=== PATIENT | male | born 1975 | race Caucasian/White ===

== ENCOUNTER 2016-08-13 23:23 | Emergency (ER) | payer SELFPAY ==
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
[2016-08-14 01:12] VITALS: BP 134/79
--- NOTE | 2016-08-14 09:54 | CR ---
Right foot: Four views of the right foot were obtained. Comparison: No previous study. Joint spaces are preserved. No fracture, dislocation or other bony abnormality is seen. Impression: 1. No abnormality is appreciated on right foot study. Diagnostic code #1
== END 2016-08-14 01:20 | disposition home or self-care (01) ==
LOC: JD.ED 23:23
DX: S90.31XA Contusion of right foot, initial encounter (principal); F17.210 Nicotine dependence, cigarettes, uncomplicated; Z88.1 Allergy status to other antibiotic agents; Z88.0 Allergy status to penicillin; Z90.49 Acquired absence of other specified parts of digestive tract; X58.XXXA Exposure to other specified factors, initial encounter
CPT/HCPCS: 73630-26-RT; 73630-RT; 99283; 99284

== ENCOUNTER 2016-08-18 10:10 | Emergency (ER) | payer SELFPAY ==
[2016-08-18 10:21] VITALS: BP 121/79
[2016-08-18] MEDS ORDERED: Acetaminophen/oxyCODONE 325-5 MG Tab PO ONE (10:31)
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
--- NOTE | 2016-08-20 11:00 | CR ---
Right foot: 4 views of the right foot were obtained. Comparison: Previous right foot exam of 08/14/16. Joint spaces are maintained. No fracture, dislocation or other bony abnormality is seen. Impression: 1. No abnormality is identified on right foot study. No significant change is seen from prior exam. Diagnostic code #1
== END 2016-08-18 11:05 | disposition home or self-care (01) ==
LOC: JD.ED 10:10
DX: S97.81XA Crushing injury of right foot, initial encounter (principal); S90.31XA Contusion of right foot, initial encounter; F17.210 Nicotine dependence, cigarettes, uncomplicated; Z90.49 Acquired absence of other specified parts of digestive tract; Z98.890 Other specified postprocedural states; Z88.0 Allergy status to penicillin; Z88.1 Allergy status to other antibiotic agents; V59.88XA Occupant (driver) (passenger) of pick-up truck or van injured in other specified transport accidents, initial encounter; Y92.410 Unspecified street and highway as the place of occurrence of the external cause
CPT/HCPCS: 73630; 99284; A9270; 99283

== ENCOUNTER 2016-08-20 21:13 | Emergency (ER) | payer SELFPAY ==
[2016-08-20 21:28] VITALS: BP 131/78
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
== END 2016-08-20 22:30 | disposition left against medical advice (07) ==
LOC: JD.ED 21:13
DX: S90.31XA Contusion of right foot, initial encounter (principal); Z90.49 Acquired absence of other specified parts of digestive tract; Z98.890 Other specified postprocedural states; Z88.0 Allergy status to penicillin; Z88.1 Allergy status to other antibiotic agents; V09.9XXA Pedestrian injured in unspecified transport accident, initial encounter
CPT/HCPCS: 99282; 99283

== ENCOUNTER 2016-09-06 00:39 | Emergency (ER) | payer SELFPAY ==
[2016-09-06 00:50] VITALS: BP 110/71
--- NOTE | 2016-09-06 01:26 | EDM.PDOC ---
ED HPI GENERAL MEDICAL PROBLEM - General Chief Complaint: Flank Pain Stated Complaint: POSS KIDNEY STONE Time Seen by Provider: 09/06/16 01:17 - History of Present Illness INITIAL COMMENTS - FREE TEXT/NARRATIVE: 40-year-old male presents emergency room with abdominal and back pain. This pain is been going on for the last several hours started around 10:00 this evening. It reminds him an awful lot of kidney stones he's had multiple kidney stones on the right side in the past his pain now is on the left side he has no right-sided pain this pain starts in the upper flank radiates around into his left hip and groin. He's had some nausea no vomiting no diarrhea no constipation he denies any fevers or chills. Past medical history significant for multiple kidney stones on the right no history of heart or lung problems no diabetes Left Flank Pain Score (Numeric/FACES): 8 - Related Data Allergies Allergy/AdvReac Type Severity Reaction Status Date / Time azithromycin [From Zithromax] Allergy Airway Verified 09/06/16 00:50 Tightness cephalexin [From Keflex] Allergy Airway Verified 09/06/16 00:50 Tightness Penicillins Allergy Anaphylactic Verified 09/06/16 00:50 Shock Past Medical History - Past Health History Medical/Surgical History: Denies Medical/Surgical History Genitourinary History: Reports: Renal Calculus Musculoskeletal History: Reports: Back Pain, Chronic Other Musculoskeletal History: pain to right foot - Infectious Disease History Infectious Disease History: Reports: Chicken Pox - Past Surgical History GI Surgical History: Reports: Appendectomy Male Surgical History: Reports: Other (See Below) Other Male Surgeries/Procedures: stent to right kidney Neurological Surgical History: Reports: Lumbar Spine Musculoskeletal Surgical History: Reports: Other (See Below) Other Musculoskeletal Surgeries/Procedures:: back surgery Social & Family History - Family History Family Medical History: Noncontributory - Tobacco Use Smoking Status *Q: Current Every Day Smoker Years of Tobacco use: 25 Packs/Tins Daily: 1.5 - Caffeine Use Caffeine Use: Reports: Coffee - Recreational Drug Use Recreational Drug Use: No - Living Situation & Occupation Living situation: Reports: , with Significant Other (Fiance), with Family (3 kids) Occupation: Employed ([employer]) ED ROS GENERAL - Review of Systems Review Of Systems: See Below Constitutional: Reports: No Symptoms. Denies: Fever, Chills HEENT: Reports: No Symptoms Respiratory: Reports: No Symptoms Cardiovascular: Reports: No Symptoms GI/Abdominal: Reports: Abdominal Pain, Nausea. Denies: Constipation, Diarrhea, Vomiting : Reports: Flank Pain. Denies: Dysuria, Frequency, Hematuria Neurological: Reports: No Symptoms ED EXAM, GI/ABD - Physical Exam Exam: See Below Exam Limited By: No Limitations General Appearance: Alert, Mild Distress (From the pain) Head: Atraumatic, Normocephalic Neck: Normal Inspection, Supple, Non-Tender, Full Range of Motion Respiratory/Chest: No Respiratory Distress, Lungs Clear, Normal Breath Sounds Cardiovascular: Regular Rate, Rhythm, No Edema, No Murmur GI/Abdominal Exam: Normal Bowel Sounds, Soft, Other (He has left-sided tenderness somewhat vague this is not worsened with palpation no rebound or guarding noted no distention). No: Non-Tender Back Exam: Normal Inspection. No: CVA Tenderness (L), CVA Tenderness (R) Course - Vital Signs Last Recorded V/S: Last Vital Signs Temp 36.2 C 09/06/16 00:46 Pulse 70 09/06/16 00:46 Resp 18 09/06/16 00:46 BP 110/71 09/06/16 00:46 Pulse Ox 99 09/06/16 00:46 - Orders/Labs/Meds Orders: Active Orders 24 hr Category Date Time Status Abdomen Pelvis wo Cont [CT] Stat Exams 09/06/16 01:27 Taken Lactated Ringers [Ringers, Lactated] 1,000 ml Med 09/06/16 01:30 Active IV ASDIRECTED Medication Orders Lactated Ringer's (Ringers, Lactated) 1,000 mls @ 150 mls/hr IV ASDIRECTED JULISA Last Admin: 09/06/16 01:41 Dose: 150 mls/hr Labs: Laboratory Tests 09/06/16 09/06/16 09/06/16 Range/Units 01:33 01:33 02:55 WBC 7.84 (4.23-9.07) K/mm3 RBC 5.40 (4.63-6.08) M/mm3 Hgb 16.4 (13.7-17.5) gm/L Hct 46.9 (40.1-51.0) % MCV 86.9 (79.0-92.2) fl MCH 30.4 (25.7-32.2) pg MCHC 35.0 (32.2-35.5) g/dl RDW Std Deviation 45.5 H (35.1-43.9) fL Plt Count 215 (163-337) K/mm3 MPV 9.2 L (9.4-12.3) fl Neutrophils % (Manual) 75 H (40-60) % Band Neutrophils % 0 (0-10) % Lymphocytes % (Manual) 22 (20-40) % Atypical Lymphs % 0 % Monocytes % (Manual) 3 (2-10) % Eosinophils % (Manual) 0 L (0.8-7.0) % Basophils % (Manual) 0 L (0.2-1.2) Platelet Estimate Adequate Plt Morphology Comment Normal RBC Morph Comment Normal Sodium 141 (136-145) mEq/L Potassium 3.5 (3.5-5.1) mEq/L Chloride 105 (98-107) mEq/L Carbon Dioxide 28 (21-32) mEq/L Anion Gap 11.5 (5-15) BUN 10 (7-18) mg/dL Creatinine 1.0 (0.7-1.3) mg/dL Est Cr Clr Drug Dosing TNP Estimated GFR (MDRD) > 60 (>60) mL/min BUN/Creatinine Ratio 10.0 L (14-18) Glucose 91 (74-106) mg/dL Calcium 9.0 (8.5-10.1) mg/dL Total Bilirubin 0.4 (0.2-1.0) mg/dL AST 17 (15-37) U/L ALT 24 (16-63) U/L Alkaline Phosphatase 100 (46-116) U/L Total Protein 6.8 (6.4-8.2) g/dl Albumin 3.9 (3.4-5.0) g/dl Globulin 2.9 gm/dL Albumin/Globulin Ratio 1.3 (1-2) Urine Color [place] H (Yellow) Urine Appearance Clear (Clear) Urine pH 6.5 (5.0-8.0) Ur Specific [place] > or = 1.030 (1.005-1.030) Urine Protein 1+ H (Negative) Urine Glucose (UA) Negative (Negative) Urine Ketones 2+ H (Negative) Urine Occult Blood Negative (Negative) Urine Nitrite Negative (Negative) Urine Bilirubin 1+ H (Negative) Urine Urobilinogen 1.0 (0.2-1.0) Ur Leukocyte Esterase Negative (Negative) Urine RBC 0-5 (0-5) /hpf Urine WBC 0-5 (0-5) /hpf Ur Epithelial Cells 0-5 (0-5) /hpf Urine Bacteria Few (FEW) /hpf Urine Mucus Many H (FEW) /hpf Meds: Medications Generic Name Dose Route Start Last Admin Trade Name Freq PRN Reason Stop Dose Admin Lactated Ringer's 1,000 mls @ 150 mls/hr 09/06/16 01:30 09/06/16 01:41 Ringers, Lactated IV 150 mls/hr ASDIRECTED JULISA Administration Discontinued Medications Generic Name Dose Route Start Last Admin Trade Name Freq PRN Reason Stop Dose Admin Fentanyl 50 mcg 09/06/16 02:07 09/06/16 02:11 Sublimaze IVPUSH 09/06/16 02:08 50 mcg ONETIME ONE Administration Fentanyl 50 mcg 09/06/16 02:37 09/06/16 02:41 Sublimaze IVPUSH 09/06/16 02:38 50 mcg ONETIME ONE Administration Hydromorphone HCl 0.5 mg 09/06/16 01:28 09/06/16 01:43 Dilaudid IVPUSH 09/06/16 01:29 0.5 mg ONETIME ONE Administration Ondansetron HCl 4 mg 09/06/16 01:28 09/06/16 01:42 Zofran IVPUSH 09/06/16 01:29 4 mg ONETIME ONE Administration - Re-Assessments/Exams Free Text/Narrative Re-Assessment/Exam: 09/06/16 02:53 CT exam does not demonstrate a kidney stone or any other etiologies for his pain awaiting on a UA at this point 09/06/16 04:41 Urinalysis is unrevealing Patient will be discharged home he's use ibuprofen 800 mg 3 times a day with meals he is to push his fluid intake and will discharge him with [place] No. 10 one or 2 every 6 hours as needed for pain precautions explained to the patient Departure - Departure Time of Disposition: 04:41 Disposition: Home, Self-Care 01 Clinical Impression: Left flank pain - Discharge Information Forms: ED Department Discharge Additional Instructions: Return to the emergency room with any questions problems or worsening symptoms. Follow-up in the Hospital clinic at the end of this week for recheck [phone]. You been given hydrocodone from the machine in the waiting room one or 2 every 6 hours as needed for pain. Allow 12 hours after using this medication before driving or returning to work. Start the ibuprofen you have at home 800 mg no more than 3 times a day. Take with meals. Push fluids so you are voiding every hour and a half to 2 hours while awake. - My Orders Last 24 Hours: My Active Orders 09/06/16 01:27 Abdomen Pelvis wo Cont [CT] Stat 09/06/16 01:30 Lactated Ringers [Ringers, Lactated] 1,000 ml IV ASDIRECTED - Assessment/Plan Last 24 Hours: My Active Orders 09/06/16 01:27 Abdomen Pelvis wo Cont [CT] Stat 09/06/16 01:30 Lactated Ringers [Ringers, Lactated] 1,000 ml IV ASDIRECTED
[2016-09-06] MEDS ORDERED: Ondansetron 4 MG/2 ML SDV IVPUSH ONE (01:28)
[2016-09-06] MEDS ORDERED: HYDROmorphone 1 MG/ML Syringe IVPUSH ONE (01:28)
[2016-09-06] MEDS ORDERED: Lactated Ringers 1,000 ML IV SCH (01:30)
[2016-09-06] MEDS ORDERED: fentaNYL 100 MCG/2 ML SDV IVPUSH ONE ×2 (02:07→02:37)
[2016-09-06] MEDS ORDERED: Acetaminophen/HYDROcodone 325-5 MG Tab PO ONE (04:56)
--- NOTE | 2016-09-06 07:39 | CT ---
CT abdomen and pelvis Technique: Multiple axial sections were obtained from above the dome of the diaphragm inferiorly through the pubic symphysis. Intravenous and oral contrast not utilized. Study has been performed as a ureteral stone protocol. Comparison: No previous CT imaging. Findings: Left kidney shows a small 2 mm nonobstructing stone within the mid to lower pole. No other abnormal calcifications are present within the kidneys. Ureters show no dilatation. No abnormal calcifications are seen along the course of the ureters. No bladder calculi are seen. Visualized lung bases show nothing acute. Electro-stimulating device is seen within the posterior soft tissues terminating in the thoracic spine. Noncontrast appearance of the liver and spleen appears within normal limits. Gallbladder shows no calcified gallstones. Adrenal glands show no nodule. Pancreas appears within normal limits. Aorta shows no aneurysmal dilatation. No retroperitoneal adenopathy or mesenteric abnormalities are seen. No pelvic mass or adenopathy is identified. Bone window settings were reviewed which appear within normal limits for the patient's age. 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 Impression: 1. 2 mm nonobstructing stone within the mid to lower left kidney. No ureteral dilatation or ureteral stone is seen. 2. Other incidental findings as noted above. Nothing acute is appreciated on noncontrast CT study of the abdomen and pelvis. Diagnostic code #3 I agree with preliminary report issued by [facility] ([facility] preliminary report dictated on 09/06/16, 3:28 AM Central Time)
== END 2016-09-06 05:05 | disposition home or self-care (01) ==
LOC: JD.ED 00:39
DX: R10.9 Unspecified abdominal pain (principal); Z90.49 Acquired absence of other specified parts of digestive tract; Z98.890 Other specified postprocedural states; Z87.442 Personal history of urinary calculi; F17.210 Nicotine dependence, cigarettes, uncomplicated; Z88.0 Allergy status to penicillin; Z88.1 Allergy status to other antibiotic agents; Z96.0 Presence of urogenital implants
CPT/HCPCS: 36415; 74176; 80053; 81001; 85025; 96361; 96374; 96375; 96376; 99284; A9270; J1170; J2405; J3010; J7120

== ENCOUNTER 2016-09-09 21:52 | Emergency (ER) | payer SELFPAY ==
[2016-09-09 22:12] VITALS: BP 129/72
[2016-09-09] MEDS ORDERED: Ondansetron 4 MG/2 ML SDV IVPUSH ONE (22:21)
[2016-09-09] MEDS ORDERED: Sodium Chloride 0.9% 1,000 ML IV ONE ×2 (22:21→23:59)
[2016-09-09] MEDS ORDERED: Sodium Chloride 0.9% 10 ML Syringe FLUSH PRN (22:21)
[2016-09-09] MEDS ORDERED: Ketorolac 30 MG/ML SDV IVPUSH ONE (22:21)
[2016-09-09] MEDS ORDERED: Ketorolac 30 MG/ML SDV ONE (22:56)
[2016-09-09] MEDS ORDERED: Sodium Chloride 0.9% 1,000 ML ONE (22:56)
[2016-09-09] MEDS ORDERED: Ondansetron 4 MG/2 ML SDV ONE (22:56)
[2016-09-09] MEDS ORDERED: Acetaminophen/HYDROcodone 325-5 MG Tab ONE (23:25)
[2016-09-09] MEDS ORDERED: Acetaminophen/HYDROcodone 325-5 MG Tab PO ONE (23:30)
--- NOTE | 2016-09-09 23:58 | EDM.PDOC ---
ED HPI GENERAL MEDICAL PROBLEM - General Chief Complaint: Genitourinary Problem Stated Complaint: LEFT KIDNEY HURTS Time Seen by Provider: 09/09/16 21:59 Source of Information: Reports: Patient History Limitations: Reports: No Limitations - History of Present Illness INITIAL COMMENTS - FREE TEXT/NARRATIVE: 40 y/o M with hx prior kidney stones presents with L flank pain. Started a few days ago. Getting worse. Pain is located in lower back and wraps around to the front. Sharp, constant, waxes and wanes. Can't get comfortable. Was here 3 days ago, CT scan showed nephrolithiasis but no ureterolithiasis. Prescribed vicodin which he has taken. This doesn't help his pain much. No dysuria/ hematuria. Has also had nausea/vomiting. Multiple episodes of vomiting tonight, though nursing staff observed him consume water and a pop tart despite their informing him that he should be NPO until my eval. No fever. No cough/SOB. Left Flank Pain Score (Numeric/FACES): 9 - Related Data Allergies Allergy/AdvReac Type Severity Reaction Status Date / Time azithromycin [From Zithromax] Allergy Airway Verified 09/09/16 22:02 Tightness cephalexin [From Keflex] Allergy Airway Verified 09/09/16 22:02 Tightness Penicillins Allergy Anaphylactic Verified 09/09/16 22:02 Shock Home Meds: Home Meds Cyclobenzaprine [Flexeril] 10 mg PO TID PRN #15 tablet 09/10/16 [Rx] Hydrocodone/Acetaminophen [Hydrocodon-Acetaminophen 5-325] 1 each PO QID PRN # 12 tablet 09/10/16 [Rx] Ondansetron [Zofran ODT] 4 mg PO Q4H PRN #15 tab.dis 09/10/16 [Rx] Past Medical History - Past Health History Medical/Surgical History: Denies Medical/Surgical History Genitourinary History: Reports: Renal Calculus Musculoskeletal History: Reports: Back Pain, Chronic Other Musculoskeletal History: pain to right foot - Infectious Disease History Infectious Disease History: Reports: Chicken Pox - Past Surgical History GI Surgical History: Reports: Appendectomy Male Surgical History: Reports: Other (See Below) Other Male Surgeries/Procedures: stent to right kidney Neurological Surgical History: Reports: Lumbar Spine Musculoskeletal Surgical History: Reports: Other (See Below) Other Musculoskeletal Surgeries/Procedures:: back surgery Social & Family History - Family History Family Medical History: Noncontributory - Tobacco Use Smoking Status *Q: Current Every Day Smoker Years of Tobacco use: 25 Packs/Tins Daily: 1.5 - Caffeine Use Caffeine Use: Reports: Coffee - Recreational Drug Use Recreational Drug Use: No - Living Situation & Occupation Living situation: Reports: , with Significant Other (Fiance), with Family (3 kids) Occupation: Employed ([employer]) ED ROS GENERAL - Review of Systems Review Of Systems: See Below Constitutional: Denies: Fever HEENT: Reports: No Symptoms Respiratory: Denies: Shortness of Breath Cardiovascular: Denies: Chest Pain Endocrine: Reports: No Symptoms GI/Abdominal: Reports: Abdominal Pain : Reports: Flank Pain. Denies: Dysuria Musculoskeletal: Reports: Back Pain Skin: Reports: No Symptoms Neurological: Reports: No Symptoms ED EXAM, GI/ABD - Physical Exam Exam: See Below Exam Limited By: No Limitations General Appearance: Alert, Anxious, Mild Distress, Other (pacing the room, agitated) Eyes: Bilateral: Normal Appearance Ears: Normal External Exam Nose: Normal Inspection Throat/Mouth: Normal Inspection Head: Atraumatic, Normocephalic Neck: Normal Inspection, Supple, Non-Tender, Full Range of Motion Respiratory/Chest: No Respiratory Distress, Lungs Clear, Normal Breath Sounds, No Accessory Muscle Use Cardiovascular: Normal Peripheral Pulses, Regular Rate, Rhythm, No Murmur GI/Abdominal Exam: Soft, Non-Tender. No: Rebound Back Exam: CVA Tenderness (L), Paraspinal Tenderness (left lumbar). No: CVA Tenderness (R) Neurological: Alert, Oriented, Normal Cognition, No Motor/Sensory Deficits Psychiatric: Anxious, Other (agitated, intermittently uncooperative but generally redirectable ) Skin Exam: Warm, Dry, Intact, Normal Color, No Rash Course - Vital Signs Last Recorded V/S: Last Vital Signs Temp 36.9 C 09/09/16 22:03 Pulse 78 09/10/16 01:16 Resp 16 09/10/16 01:16 BP 129/72 09/09/16 22:03 Pulse Ox 91 L 09/10/16 01:16 - Orders/Labs/Meds Orders: Active Orders 24 hr Category Date Time Status Peripheral IV Care [RC] . DIRECTED Care 09/09/16 22:22 Active Peripheral IV Insertion Adult [OM.PC] Routine Oth 09/09/16 22:21 Ordered Labs: Laboratory Tests 09/09/16 09/09/16 09/09/16 Range/Units 23:00 23:00 23:00 WBC 8.67 (4.23-9.07) K/mm3 RBC 5.82 (4.63-6.08) M/mm3 Hgb 17.6 H (13.7-17.5) gm/L Hct 50.3 (40.1-51.0) % MCV 86.4 (79.0-92.2) fl MCH 30.2 (25.7-32.2) pg MCHC 35.0 (32.2-35.5) g/dl RDW Std Deviation 46.1 H (35.1-43.9) fL Plt Count 262 (163-337) K/mm3 MPV 9.4 (9.4-12.3) fl Neut % (Auto) 73.0 H (34.0-67.9) % Lymph % (Auto) 20.6 L (21.8-53.1) % [place] % (Auto) 5.8 (5.3-12.2) % Eos % (Auto) 0.2 L (0.8-7.0) Baso % (Auto) 0.2 (0.1-1.2) % Neut # (Auto) 6.32 H (1.78-5.38) K/mm3 Lymph # (Auto) 1.79 (1.32-3.57) K/mm3 [place] # (Auto) 0.50 (0.30-0.82) K/mm3 Eos # (Auto) 0.02 L (0.04-0.54) K/mm3 Baso # (Auto) 0.02 (0.01-0.08) K/mm3 Sodium 141 (136-145) mEq/L Potassium 3.8 (3.5-5.1) mEq/L Chloride 101 (98-107) mEq/L Carbon Dioxide 25 (21-32) mEq/L Anion Gap 18.8 H (5-15) BUN 14 (7-18) mg/dL Creatinine 0.8 (0.7-1.3) mg/dL Est Cr Clr Drug Dosing TNP Estimated GFR (MDRD) > 60 (>60) mL/min BUN/Creatinine Ratio 17.5 (14-18) Glucose 259 H (74-106) mg/dL Calcium 8.6 (8.5-10.1) mg/dL Total Bilirubin 0.2 (0.2-1.0) mg/dL AST 27 (15-37) U/L ALT 29 (16-63) U/L Alkaline Phosphatase 118 H (46-116) U/L Total Protein 7.4 (6.4-8.2) g/dl Albumin 4.0 (3.4-5.0) g/dl Globulin 3.4 gm/dL Albumin/Globulin Ratio 1.2 (1-2) Lipase 124 (73-393) U/L Ethyl Alcohol 0.10 (0.00) gm% Meds: Medications Discontinued Medications Generic Name Dose Route Start Last Admin Trade Name Freq PRN Reason Stop Dose Admin Hydrocodone Bitart/Acetaminophen Confirm 09/09/16 23:25 09/09/16 23:32 Casa 325-5 Mg Administered 09/09/16 23:26 Not Given Dose 1 tab .ROUTE .STK-MED ONE Hydrocodone Bitart/Acetaminophen 1 tab 09/09/16 23:30 09/09/16 23:33 Casa 325-5 Mg PO 09/09/16 23:31 1 tab ONETIME ONE Administration Hydromorphone HCl 1 mg 09/10/16 00:46 09/10/16 00:51 Dilaudid IVPUSH 09/10/16 00:47 1 mg ONETIME ONE Administration Sodium Chloride Confirm 09/09/16 22:56 09/09/16 23:27 Normal Saline Administered 09/09/16 22:57 Not Given Dose 1,000 mls @ as directed .ROUTE .STK-MED ONE Sodium Chloride 1,000 mls @ 1,000 mls/hr 09/09/16 22:21 09/09/16 23:25 Normal Saline IV 09/09/16 23:20 1,000 mls/hr ONETIME ONE Administration Sodium Chloride 1,000 mls @ 1,000 mls/hr 09/09/16 23:59 09/10/16 00:07 Normal Saline IV 09/10/16 00:58 1,000 mls/hr ONETIME ONE Administration Ketorolac Tromethamine Confirm 09/09/16 22:56 09/09/16 23:27 Toradol Administered 09/09/16 22:57 Not Given Dose 30 mg .ROUTE .STK-MED ONE Ketorolac Tromethamine 30 mg 09/09/16 22:21 09/09/16 23:06 Toradol IVPUSH 09/09/16 22:22 30 mg ONETIME ONE Administration Lorazepam 1 mg 09/10/16 00:25 09/10/16 00:33 Ativan IVPUSH 09/10/16 00:26 1 mg ONETIME ONE Administration Morphine Sulfate 4 mg 09/09/16 23:59 09/10/16 00:08 Morphine IVPUSH 4 mg Q2H PRN Administration Pain Ondansetron HCl Confirm 09/09/16 22:56 09/09/16 23:27 Zofran Administered 09/09/16 22:57 Not Given Dose 4 mg .ROUTE .STK-MED ONE Ondansetron HCl 4 mg 09/09/16 22:21 09/09/16 23:06 Zofran IVPUSH 09/09/16 22:22 4 mg ONETIME ONE Administration Ondansetron HCl 4 mg 09/10/16 00:25 09/10/16 00:32 Zofran IVPUSH 09/10/16 00:26 4 mg ONETIME ONE Administration Sodium Chloride 10 ml 09/09/16 22:21 09/10/16 00:10 Saline Flush FLUSH 10 ml ASDIRECTED PRN Administration Keep Vein Open - Re-Assessments/Exams Free Text/Narrative Re-Assessment/Exam: 09/10/16 01:[address] scan 3 days ago showed 2 mm nephrolith on L side, but no ureterolith or other CT abnormality to explain patient's pain. He was discharged with rx for Vicodin which he has taken. When I reexamined him, TTP is lower than CVA area, more mid-lumbar paraspinal. No midline vertebral TTP. Patient has scar on his back, states he has spinal stimulator for degerative disk disease and was under care of cloth painter when in [place] and hasn't needed pain meds for "years" though PERPETUAL INVENTORY CLERK report reveals that he was filling regular prescriptions for tramadol up until around 8 months ago. He's had a few additional smaller prescriptions for narcotics from various providers since then. While he may be passing a stone, if so it is quite small ( 2mm) and shouldn't require intervention. I suspect that this is actually musculoskeletal in nature. No injury. 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 He looks much more comfortable, though still c/o pain, after being given toradol, norco, morphine, dilaudid, and ativan over the course of a few hours. Remains very alert and awake. He is ready to go home and rest. I provided rx #12 tab hydrocodone but explained that ED cannot manage future pain control unless there 's an emergency condition. Discussed hyperglycemia at length including need to f /u this week. Provided clinic phone number. 09/10/16 01:25 Nurses had some concerns re: possible med seeking behavior, including patient asking them to push the meds faster. He has had a few pain related visits in past 2 months with no documented objective painful diagnoses. Discussed with patient need to seek primary care provider for pain management plan. PERPETUAL INVENTORY CLERK shows 2 prescriptions for narcotics from ED in past 2 months, no additional recent narcotics. Was previously getting tramadol regularly up until Feb 2016 from a provider in [place]. Departure - Departure Time of Disposition: 01:11 Disposition: Home, Self-Care 01 Clinical Impression: Hyperglycemia Back pain Qualifiers: Back pain location: low back pain Chronicity: acute Back pain laterality: left Sciatica presence: without sciatica Qualified Code(s): M54.5 - Low back pain - Discharge Information Prescriptions: Cyclobenzaprine [Flexeril] 10 mg PO TID PRN #15 tablet PRN Reason: Muscle Spasm Hydrocodone/Acetaminophen [Hydrocodon-Acetaminophen 5-325] 1 each PO QID PRN # 12 tablet PRN Reason: Pain Ondansetron [Zofran ODT] 4 mg PO Q4H PRN #15 tab.dis PRN Reason: Vomiting Instructions: Back Pain, Adult, Hyperglycemia, [id number] Referrals: PCP,None [Primary Care Provider] - Forms: ED Department Discharge Additional Instructions: 1. Follow up with a primary care provider as soon as possible for further care and to discuss your high blood sugar. Call [phone] to schedule with a provider here. 2. Take ibuprofen for pain. Take flexeril (Cyclobenzaprine) for muscle spasm. Take hydrocodone for severe pain only. No driving or working while taking hydrocodone. 3. Discuss further pain management options with a primary doctor. - My Orders Last 24 Hours: My Active Orders 09/09/16 22:21 Peripheral IV Insertion Adult [OM.PC] Routine 09/09/16 22:22 Peripheral IV Care [RC] . DIRECTED - Assessment/Plan Last 24 Hours: My Active Orders 09/09/16 22:21 Peripheral IV Insertion Adult [OM.PC] Routine 09/09/16 22:22 Peripheral IV Care [RC] . DIRECTED
[2016-09-09] MEDS ORDERED: Morphine 4 MG/ML Syringe IVPUSH PRN (23:59)
[2016-09-10] MEDS ORDERED: Ondansetron 4 MG/2 ML SDV IVPUSH ONE (00:25)
[2016-09-10] MEDS ORDERED: LORazepam 2 MG/ML MDV IVPUSH ONE (00:25)
[2016-09-10] MEDS ORDERED: HYDROmorphone 1 MG/ML Syringe IVPUSH ONE (00:46)
== END 2016-09-10 01:15 | disposition home or self-care (01) ==
LOC: JD.ED 21:52
DX: M54.5 Low back pain (principal); R73.9 Hyperglycemia, unspecified; F17.210 Nicotine dependence, cigarettes, uncomplicated; Z88.0 Allergy status to penicillin; Z87.442 Personal history of urinary calculi; Z90.49 Acquired absence of other specified parts of digestive tract; Z88.1 Allergy status to other antibiotic agents
CPT/HCPCS: 36415; 80053; 83690; 85025; 96361; 96374; 96375; 96376; 99284; A9270; G0480; J1170; J1885; J2060; J2270; J2405; J7040; J7050

== ENCOUNTER 2016-09-12 19:30 | Emergency (ER) | payer SELFPAY ==
[2016-09-12] MEDS ORDERED: LORazepam 2 MG/ML MDV IVPUSH ONE ×2 (19:34→20:04)
[2016-09-12] MEDS ORDERED: Sodium Chloride 0.9% 10 ML Syringe FLUSH PRN (19:35)
[2016-09-12] MEDS ORDERED: Haloperidol Lactate 5 MG/ML SDV IVPUSH ONE ×2 (19:35→20:04)
[2016-09-12] MEDS ORDERED: LORazepam 2 MG/ML MDV ONE ×2 (19:37→20:08)
[2016-09-12] MEDS ORDERED: Haloperidol Lactate 5 MG/ML SDV ONE ×2 (19:37→20:08)
[2016-09-12] MEDS ORDERED: Sodium Chloride 0.9% 1,000 ML IV SCH ×2 (20:00→21:45)
--- NOTE | 2016-09-12 20:00 | EDM.PDOC ---
ED HPI GENERAL MEDICAL PROBLEM - General Chief Complaint: Chest Pain Stated Complaint: [facility] Time Seen by Provider: 09/12/16 19:34 Source of Information: Reports: Patient, EMS, Old Records, Police, RN Notes Reviewed - History of Present Illness INITIAL COMMENTS - FREE TEXT/NARRATIVE: 40-year-old male has been brought in by EMS complaining of left chest pain but also symptoms of altered mental status. When police arrived he seemed "out of it ", pretty much ignored them, walked pass them outside and "fell to the ground" on EMS arrival he seemed agitated, abnormal mental status but did complain of left anterior chest pain clutching at his left chest. boat camp operator applied revealed normal sinus rhythm. Because of agitation and "thrashing around they' re unable to get a 12-lead EKG. His blood pressure was okay with systolic in the 140s. He was noted to be somewhat tachypneic. Sats were okay. He was transported here without further incident. Unable to obtain any meaningful history on arrival to ED. At time of my exam he's lying on the cot with his eyes closed, not really answering questions coherently but intermittently trying to sit up and intermittently grabbing at his left chest. There are around for police officers present in the room restraining his upper and lower extremities to help keep him on the cot. Of note there are track langley on both of his arms. Chest Pain Score (Numeric/FACES): 0 - Related Data Allergies Allergy/AdvReac Type Severity Reaction Status Date / Time azithromycin [From Zithromax] Allergy Airway Verified 09/12/16 19:44 Tightness cephalexin [From Keflex] Allergy Airway Verified 09/12/16 19:44 Tightness Penicillins Allergy Anaphylactic Verified 09/12/16 19:44 Shock Home Meds: Home Meds Cyclobenzaprine [Flexeril] 10 mg PO TID PRN #15 tablet 09/10/16 [Rx] Hydrocodone/Acetaminophen [Hydrocodon-Acetaminophen 5-325] 1 each PO QID PRN # 12 tablet 09/10/16 [Rx] Ondansetron [Zofran ODT] 4 mg PO Q4H PRN #15 tab.dis 09/10/16 [Rx] Past Medical History - Past Health History Medical/Surgical History: Denies Medical/Surgical History Genitourinary History: Reports: Renal Calculus Musculoskeletal History: Reports: Back Pain, Chronic Other Musculoskeletal History: pain to right foot - Infectious Disease History Infectious Disease History: Reports: Chicken Pox - Past Surgical History GI Surgical History: Reports: Appendectomy Male Surgical History: Reports: Other (See Below) Other Male Surgeries/Procedures: stent to right kidney Neurological Surgical History: Reports: Lumbar Spine Musculoskeletal Surgical History: Reports: Other (See Below) Other Musculoskeletal Surgeries/Procedures:: back surgery Social & Family History - Family History Family Medical History: Noncontributory - Tobacco Use Smoking Status *Q: Current Every Day Smoker Years of Tobacco use: 25 Packs/Tins Daily: 1.5 - Caffeine Use Caffeine Use: Reports: Coffee - Recreational Drug Use Recreational Drug Use: No - Living Situation & Occupation Living situation: Reports: , with Significant Other (Fiance), with Family (3 kids) Occupation: Employed ([employer]) ED ROS GENERAL - Review of Systems Review Of Systems: Unable To Obtain ED EXAM, GENERAL - Physical Exam Exam: See Below General Appearance: Anxious, Moderate Distress, Other (Agitated behavior) Eye Exam: Bilateral Eye: PERRL Head: Atraumatic. No: Facial Swelling Neck: Supple Respiratory/Chest: Respiratory Distress (Mildly tachypneic on arrival) Cardiovascular: Regular Rate, Rhythm Extremities: Other (Multiple track langley visible both arms) Neurological: No Motor/Sensory Deficits (Moving all extremities), Other ( Patient does open his eyes at times but mostly lying there with his eyes closed , not answering questions coherently) Skin Exam: Warm, Dry, Normal Color EKG INTERPRETATION EKG Date: 09/12/16 Rhythm: NSR [place]: Normal P-Wave: Present QRS: Normal ST-T: Elevated (There is mild ST elevation in V2 and V3) Course - Vital Signs Last Recorded V/S: Last Vital Signs Temp 98.0 F 09/12/16 19:34 Pulse 97 09/12/16 19:34 Resp 21 H 09/12/16 19:34 BP 133/83 09/12/16 19:34 Pulse Ox 98 09/12/16 19:34 - Orders/Labs/Meds Orders: Active Orders 24 hr Category Date Time Status EKG 12 Lead [EKG Documentation Completion] [RC] STAT Care 09/12/16 19:36 Active Peripheral IV Care [RC] . DIRECTED Care 09/12/16 19:35 Active Chest 1V Frontal [CR] Stat Exams 09/12/16 19:37 Taken Sodium Chloride 0.9% [Normal Saline] 1,000 ml Med 09/12/16 19:54 Active IV ONETIME Sodium Chloride 0.9% [Normal Saline] 1,000 ml Med 09/12/16 21:45 Active IV ONETIME Sodium Chloride 0.9% [Saline Flush] Med 09/12/16 19:35 Active 10 ml FLUSH ASDIRECTED PRN Peripheral IV Insertion Adult [OM.PC] Stat Oth 09/12/16 19:34 Ordered Medication Orders Sodium Chloride (Normal Saline) 1,000 mls @ 999 mls/hr IV ONETIME JULISA Last Admin: 09/12/16 21:42 Dose: 999 mls/hr Infusion: 09/12/16 21:11 Dose: 999 mls/hr Admin: 09/12/16 20:10 Dose: 999 mls/hr Sodium Chloride (Normal Saline) 1,000 mls @ 999 mls/hr IV ONETIME JULISA Sodium Chloride (Saline Flush) 10 ml FLUSH ASDIRECTED PRN PRN Reason: Keep Vein Open Last Admin: 09/12/16 20:14 Dose: 10 ml Labs: Laboratory Tests 09/12/16 09/12/16 09/12/16 Range/Units 19:50 19:50 20:00 WBC 4.31 (4.23-9.07) K/mm3 RBC 5.55 (4.63-6.08) M/mm3 Hgb 16.5 (13.7-17.5) gm/L Hct 47.9 (40.1-51.0) % MCV 86.3 (79.0-92.2) fl MCH 29.7 (25.7-32.2) pg MCHC 34.4 (32.2-35.5) g/dl RDW Std Deviation 45.9 H (35.1-43.9) fL Plt Count 215 (163-337) K/mm3 MPV 8.9 L (9.4-12.3) fl Neut % (Auto) 46.8 (34.0-67.9) % Lymph % (Auto) 42.7 (21.8-53.1) % Becker % (Auto) 7.4 (5.3-12.2) % Eos % (Auto) 2.6 (0.8-7.0) Baso % (Auto) 0.5 (0.1-1.2) % Neut # (Auto) 2.02 (1.78-5.38) K/mm3 Lymph # (Auto) 1.84 (1.32-3.57) K/mm3 Becker # (Auto) 0.32 (0.30-0.82) K/mm3 Eos # (Auto) 0.11 (0.04-0.54) K/mm3 Baso # (Auto) 0.02 (0.01-0.08) K/mm3 Sodium 144 (136-145) mEq/L Potassium 3.6 (3.5-5.1) mEq/L Chloride 108 H (98-107) mEq/L Carbon Dioxide 24 (21-32) mEq/L Anion Gap 15.6 H (5-15) BUN 10 (7-18) mg/dL Creatinine 0.8 (0.7-1.3) mg/dL Est Cr Clr Drug Dosing TNP Estimated GFR (MDRD) > 60 (>60) mL/min BUN/Creatinine Ratio 12.5 L (14-18) Glucose 101 (74-106) mg/dL Calcium 8.4 L (8.5-10.1) mg/dL Total Bilirubin 0.2 (0.2-1.0) mg/dL AST 40 H (15-37) U/L ALT 33 (16-63) U/L Alkaline Phosphatase 111 (46-116) U/L Troponin I < 0.017 (0.00-0.056) ng/mL Total Protein 6.7 (6.4-8.2) g/dl Albumin 3.8 (3.4-5.0) g/dl Globulin 2.9 gm/dL Albumin/Globulin Ratio 1.3 (1-2) Urine Opiates Screen Negative (NEGATIVE) Ur Buprenorphine Scrn Negative (NEGATIVE) Ur Oxycodone Screen Negative (NEGATIVE) Urine Methadone Screen Negative (NEGATIVE) Ur Propoxyphene Screen Negative (NEGATIVE) Ur Barbiturates Screen Negative (NEGATIVE) Ur Tricyclics Screen Negative (NEGATIVE) Ur Phencyclidine Scrn Negative (NEGATIVE) Ur Amphetamine Screen Negative (NEGATIVE) U Methamphetamines Scrn Negative (NEGATIVE) U Benzodiazepines Scrn Negative (NEGATIVE) U Cocaine Metab Screen Negative (NEGATIVE) U Marijuana (THC) Screen Negative (NEGATIVE) Ethyl Alcohol 0.14 (0.00) gm% Meds: Medications Generic Name Dose Route Start Last Admin Trade Name Freq PRN Reason Stop Dose Admin Sodium Chloride 1,000 mls @ 999 mls/hr 09/12/16 19:54 09/12/16 21:42 Normal Saline IV 999 mls/hr ONETIME JULISA Administration Sodium Chloride 1,000 mls @ 999 mls/hr 09/12/16 21:45 Normal Saline IV ONETIME JULISA Sodium Chloride 10 ml 09/12/16 19:35 09/12/16 20:14 Saline Flush FLUSH 10 ml ASDIRECTED PRN Administration Keep Vein Open Discontinued Medications Generic Name Dose Route Start Last Admin Trade Name Freq PRN Reason Stop Dose Admin Haloperidol Lactate 5 mg 09/12/16 19:35 09/12/16 19:39 Haldol IVPUSH 09/12/16 19:36 5 mg ONETIME ONE Administration Haloperidol Lactate Confirm 09/12/16 19:37 09/12/16 20:12 Haldol Administered 09/12/16 19:38 Not Given Dose 5 mg .ROUTE .STK-MED ONE Haloperidol Lactate 5 mg 09/12/16 20:04 09/12/16 21:49 Haldol IVPUSH 09/12/16 20:05 Not Given ONETIME ONE Haloperidol Lactate Confirm 09/12/16 20:08 09/12/16 20:12 Haldol Administered 09/12/16 20:09 Not Given Dose 5 mg .ROUTE .STK-MED ONE Haloperidol Lactate 2.5 mg 09/12/16 20:11 09/12/16 20:07 Haldol IVPUSH 09/12/16 20:12 2.5 mg ONETIME STA Administration Sodium Chloride 1,000 mls @ 999 mls/hr 09/12/16 20:00 Normal Saline IV ONETIME JULISA Sodium Chloride Confirm 09/12/16 21:44 09/12/16 21:44 Normal Saline Administered 09/12/16 21:45 Not Given Dose 1,000 mls @ as directed .ROUTE .STK-MED ONE Lorazepam 1 mg 09/12/16 19:34 09/12/16 19:37 Ativan IVPUSH 09/12/16 19:35 1 mg ONETIME ONE Administration Lorazepam Confirm 09/12/16 19:37 09/12/16 20:13 Ativan Administered 09/12/16 19:38 Not Given Dose 2 mg .ROUTE .STK-MED ONE Lorazepam 1 mg 09/12/16 20:04 09/12/16 20:05 Ativan IVPUSH 09/12/16 20:05 1 mg ONETIME ONE Administration Lorazepam Confirm 09/12/16 20:08 09/12/16 20:12 Ativan Administered 09/12/16 20:09 Not Given Dose 2 mg .ROUTE .STK-MED ONE Lorazepam 1 mg 09/12/16 20:11 09/12/16 21:49 Ativan IVPUSH 09/12/16 20:12 Not Given ONETIME STA - Re-Assessments/Exams Free Text/Narrative Re-Assessment/Exam: 09/12/16 20:01 Due to agitation on arrival, safety risk to police officers and ED staff he was immediately given Ativan 1 mg IV followed by Haldol 5 mg IV. 09/12/16 20:09. Patient did relax somewhat after the initial Ativan and Haldol. He is starting to get a bit agitated again once again trying to sit up, wants to leave the ED. Still awaiting lab work. Chest x-ray looks fine. And is in sinus rhythm, no ectopy. We are going to give another milligram Ativan IV and 2.5 mg Haldol IV. 09/12/16 23:22. Patient has awakened, he did sleep for over 2 hours after receiving the above medication. He's had 2 L of normal saline. His troponin was normal, other labs all relatively normal. EtOH was 0.14. He wants to go home. He is up ambulatory without difficulty. Therefore we are going to discharge him at this time. Departure - Departure Time of Disposition: 23:11 Disposition: Home, Self-Care 01 Condition: Fair Clinical Impression: Atypical chest pain Alcohol intoxication Qualifiers: Complication of substance-induced condition: uncomplicated Qualified Code(s): F10.920 - Alcohol use, unspecified with intoxication, uncomplicated Instructions: Nonspecific Chest Pain Referrals: PCP,None [Primary Care Provider] - Forms: ED Department Discharge Additional Instructions: There is no evidence for heart attack this evening, try eat a healthy diet and try exercise regularly, avoid excessive alcohol, follow-up clinic as needed - My Orders Last 24 Hours: My Active Orders 09/12/16 19:34 Peripheral IV Insertion Adult [OM.PC] Stat 09/12/16 19:35 Peripheral IV Care [RC] . DIRECTED Sodium Chloride 0.9% [Saline Flush] 10 ml FLUSH ASDIRECTED PRN 09/12/16 19:36 EKG 12 Lead [EKG Documentation Completion] [RC] STAT 09/12/16 19:37 Chest 1V Frontal [CR] Stat 09/12/16 19:54 Sodium Chloride 0.9% [Normal Saline] 1,000 ml IV ONETIME 09/12/16 21:45 Sodium Chloride 0.9% [Normal Saline] 1,000 ml IV ONETIME - Assessment/Plan Last 24 Hours: My Active Orders 09/12/16 19:34 Peripheral IV Insertion Adult [OM.PC] Stat 09/12/16 19:35 Peripheral IV Care [RC] . DIRECTED Sodium Chloride 0.9% [Saline Flush] 10 ml FLUSH ASDIRECTED PRN 09/12/16 19:36 EKG 12 Lead [EKG Documentation Completion] [RC] STAT 09/12/16 19:37 Chest 1V Frontal [CR] Stat 09/12/16 19:54 Sodium Chloride 0.9% [Normal Saline] 1,000 ml IV ONETIME 09/12/16 21:45 Sodium Chloride 0.9% [Normal Saline] 1,000 ml IV ONETIME
[2016-09-12] MEDS: Sodium Chloride 0.9% 1,000 ML IV SCH ×2 (20:10→21:42)
[2016-09-12] MEDS ORDERED: LORazepam 2 MG/ML MDV IVPUSH STA (20:11)
[2016-09-12] MEDS ORDERED: Haloperidol Lactate 5 MG/ML SDV IVPUSH STA (20:11)
[2016-09-12] MEDS ORDERED: Sodium Chloride 0.9% 1,000 ML ONE (21:44)
[2016-09-12 23:33] VITALS: BP 101/56
--- NOTE | 2016-09-13 08:01 | CR ---
Chest: Portable supine view of the chest was obtained. Comparison: No previous study. Heart size and mediastinum are within normal limits for portable technique. Central lung markings are increased. Uncertain if this is chronic or due to mild bronchitis without old study. Lungs otherwise are clear. Bony structures are grossly intact. Stimulating wires are seen overlying the spine. Impression: 1. Central lung markings slightly increased as described above. Other incidental findings. Diagnostic code #3
== END 2016-09-12 23:15 | disposition home or self-care (01) ==
LOC: JD.ED 19:30
DX: R07.89 Other chest pain (principal); F10.920 Alcohol use, unspecified with intoxication, uncomplicated; F17.210 Nicotine dependence, cigarettes, uncomplicated; Z87.442 Personal history of urinary calculi; Z90.49 Acquired absence of other specified parts of digestive tract; Z98.890 Other specified postprocedural states; Z96.0 Presence of urogenital implants; Z88.0 Allergy status to penicillin; Z88.1 Allergy status to other antibiotic agents; Y90.0 Blood alcohol level of less than 20 mg/100 ml
CPT/HCPCS: 36415; 71010; 80053; 80306; 84484; 85025; 93005; 96361; 96374; 96375; 99285; G0480; J1630; J2060; J7040; J7050; P9612; 99284

== ENCOUNTER 2016-09-14 04:00 | Emergency (ER) | payer SELFPAY ==
[2016-09-14 04:21] VITALS: BP 105/76
--- NOTE | 2016-09-14 04:42 | EDM.PDOC ---
<Quinton Siu Doreen - Last Filed: 09/14/16 07:01> ED HPI GENERAL MEDICAL PROBLEM - General Chief Complaint: Chest Pain Stated Complaint: [facility] Time Seen by Provider: 09/14/16 04:16 Source of Information: Reports: Patient, Old Records, RN Notes Reviewed History Limitations: Reports: No Limitations - History of Present Illness INITIAL COMMENTS - FREE TEXT/NARRATIVE: Medical records indicate that the patient was seen by me in this ED on 08/13/2016 , then again on 08/18/2016, 08/20/2016, 09/06/2016, 09/09/2016, and 09/12/2016. On 2 of those occasions he was intoxicated, and he was documented to be drug-seeking on at least 2 of those occasions. The patient apparently called EMS complaining of chest pain. He was sleeping upon arrival, but spontaneously woke up and began talking to staff, stating that he needed a pain shot. His alcohol level has since returned substantially elevated at 0.32. The remainder of his workup is negative. At this time, the patient will not talk to me. - Related Data Allergies Allergy/AdvReac Type Severity Reaction Status Date / Time azithromycin [From Zithromax] Allergy Airway Verified 09/14/16 18:12 Tightness cephalexin [From Keflex] Allergy Airway Verified 09/14/16 18:12 Tightness Penicillins Allergy Anaphylactic Verified 09/14/16 18:12 Shock Home Meds: Home Meds Cyclobenzaprine [Flexeril] 10 mg PO TID PRN #15 tablet 09/10/16 [Rx] Hydrocodone/Acetaminophen [Hydrocodon-Acetaminophen 5-325] 1 each PO QID PRN # 12 tablet 09/10/16 [Rx] Ondansetron [Zofran ODT] 4 mg PO Q4H PRN #15 tab.dis 09/10/16 [Rx] Past Medical History Genitourinary History: Reports: Renal Calculus Musculoskeletal History: Reports: Back Pain, Chronic - Infectious Disease History Infectious Disease History: Reports: Chicken Pox - Past Surgical History GI Surgical History: Reports: Appendectomy Male Surgical History: Reports: Other (See Below) (Right ureteral stent) Neurological Surgical History: Reports: Other (See Below) (Spinal stimulator) Musculoskeletal Surgical History: Reports: Other (See Below) Other Musculoskeletal Surgeries/Procedures:: back surgery Social & Family History - Family History Family Medical History: Noncontributory - Tobacco Use Smoking Status *Q: Current Every Day Smoker Years of Tobacco use: 25 Packs/Tins Daily: 1.5 - Caffeine Use Caffeine Use: Reports: Coffee Other Caffeine Use: unknown - Recreational Drug Use Recreational Drug Use: No Other Recreational Drug Type: patient denies drug use - Living Situation & Occupation Living situation: Reports: , with Significant Other (Fiance), with Family (3 kids) Occupation: Employed ([employer]) ED ROS GENERAL - Review of Systems Review Of Systems: Unable To Obtain ED EXAM, GENERAL - Physical Exam Exam: See Below Exam Limited By: Intoxication General Appearance: WD/WN, No Apparent Distress Eye Exam: Bilateral Eye: Normal Inspection Ears: Normal External Exam, Hearing Grossly Normal Nose: Normal Inspection, No Blood Throat/Mouth: Normal Inspection, Normal Lips, No Airway Compromise Head: Atraumatic, Normocephalic Neck: Normal Inspection, Full Range of Motion Respiratory/Chest: No Respiratory Distress, Lungs Clear, Normal Breath Sounds, No Accessory Muscle Use Cardiovascular: Normal Peripheral Pulses, Regular Rate, Rhythm, No Gallop, No JVD, No Murmur, No Rub Peripheral Pulses: 4+: Radial (L), Radial (R) GI/Abdominal: Normal Bowel Sounds, Soft, No Organomegaly, No Distention, No Abnormal Bruit, No Mass (Male) Exam: Deferred Rectal (Males) Exam: Deferred Extremities: Normal Inspection, Normal Range of Motion, No Pedal Edema, Normal Capillary Refill Neurological: Other (The patient does not follow instructions) Psychiatric: Other (Unable to assess) Skin Exam: Warm, Dry, Intact, Normal Color, No Rash Lymphatic: No Adenopathy EKG INTERPRETATION EKG Date: 09/14/16 Time: 04:06 Rhythm: NSR Rate (Beats/Min): 65 [place]: Normal P-Wave: Present QRS: Normal ST-T: Normal QT: Normal Comparison: No Change (09/12/2016) Course - Vital Signs Last Recorded V/S: Last Vital Signs Temp 36.0 C 09/14/16 04:16 Pulse 60 09/14/16 04:16 Resp 22 H 09/14/16 04:16 BP 105/76 09/14/16 04:16 Pulse Ox 94 L 09/14/16 04:16 - Orders/Labs/Meds Orders: Active Orders 24 hr Category Date Time Status EKG Documentation Completion [RC] STAT Care 09/14/16 04:41 Active Labs: Laboratory Tests 09/14/16 09/14/16 09/14/16 Range/Units 04:40 04:40 04:40 WBC 7.14 (4.23-9.07) K/mm3 RBC 5.77 (4.63-6.08) M/mm3 Hgb 17.3 (13.7-17.5) gm/L Hct 49.6 (40.1-51.0) % MCV 86.0 (79.0-92.2) fl MCH 30.0 (25.7-32.2) pg MCHC 34.9 (32.2-35.5) g/dl RDW Std Deviation 45.2 H (35.1-43.9) fL Plt Count 214 (163-337) K/mm3 MPV 8.8 L (9.4-12.3) fl Neutrophils % (Manual) 53 (40-60) % Band Neutrophils % 0 (0-10) % Lymphocytes % (Manual) 36 (20-40) % Atypical Lymphs % 9 % Monocytes % (Manual) 2 (2-10) % Eosinophils % (Manual) 0 L (0.8-7.0) % Basophils % (Manual) 0 L (0.2-1.2) Platelet Estimate Adequate Plt Morphology Comment Normal Spherocytes Few RBC Morph Comment Not Reportable PT 10.3 (8.0-13.0) SECONDS INR 0.95 APTT 28 (22-36) SECONDS D-Dimer, Quantitative 0.34 (0.19-0.59) mg/L Sodium 144 (136-145) mEq/L Potassium 3.3 L (3.5-5.1) mEq/L Chloride 109 H (98-107) mEq/L Carbon Dioxide 25 (21-32) mEq/L Anion Gap 13.3 (5-15) BUN 8 (7-18) mg/dL Creatinine 0.9 (0.7-1.3) mg/dL Est Cr Clr Drug Dosing TNP Estimated GFR (MDRD) > 60 (>60) mL/min BUN/Creatinine Ratio 8.9 L (14-18) Glucose 102 (74-106) mg/dL Calcium 8.2 L (8.5-10.1) mg/dL Total Bilirubin 0.3 (0.2-1.0) mg/dL AST 19 (15-37) U/L ALT 28 (16-63) U/L Alkaline Phosphatase 117 H (46-116) U/L Troponin I < 0.017 (0.00-0.056) ng/mL [id number] Pept 33 (0-125) pg/mL Total Protein 6.7 (6.4-8.2) g/dl Albumin 3.7 (3.4-5.0) g/dl Globulin 3.0 gm/dL Albumin/Globulin Ratio 1.2 (1-2) Ethyl Alcohol (0.00) gm% 09/14/16 Range/Units 04:40 WBC (4.23-9.07) K/mm3 RBC (4.63-6.08) M/mm3 Hgb (13.7-17.5) gm/L Hct (40.1-51.0) % MCV (79.0-92.2) fl MCH (25.7-32.2) pg MCHC (32.2-35.5) g/dl RDW Std Deviation (35.1-43.9) fL Plt Count (163-337) K/mm3 MPV (9.4-12.3) fl Neutrophils % (Manual) (40-60) % Band Neutrophils % (0-10) % Lymphocytes % (Manual) (20-40) % Atypical Lymphs % % Monocytes % (Manual) (2-10) % Eosinophils % (Manual) (0.8-7.0) % Basophils % (Manual) (0.2-1.2) Platelet Estimate Plt Morphology Comment Spherocytes RBC Morph Comment PT (8.0-13.0) SECONDS INR APTT (22-36) SECONDS D-Dimer, Quantitative (0.19-0.59) mg/L Sodium (136-145) mEq/L Potassium (3.5-5.1) mEq/L Chloride (98-107) mEq/L Carbon Dioxide (21-32) mEq/L Anion Gap (5-15) BUN (7-18) mg/dL Creatinine (0.7-1.3) mg/dL Est Cr Clr Drug Dosing Estimated GFR (MDRD) (>60) mL/min BUN/Creatinine Ratio (14-18) Glucose (74-106) mg/dL Calcium (8.5-10.1) mg/dL Total Bilirubin (0.2-1.0) mg/dL AST (15-37) U/L ALT (16-63) U/L Alkaline Phosphatase (46-116) U/L Troponin I (0.00-0.056) ng/mL [id number] Pept (0-125) pg/mL Total Protein (6.4-8.2) g/dl Albumin (3.4-5.0) g/dl Globulin gm/dL Albumin/Globulin Ratio (1-2) Ethyl Alcohol 0.32 (0.00) gm% - Re-Assessments/Exams Free Text/Narrative Re-Assessment/Exam: 09/14/16 06:25 Portable chest radiograph appears to be grossly normal. Cardiac silhouette is within normal limits. No pulmonary vascular congestion. No pleural effusions. No focal infiltrate. No pneumothorax. Spinal stimulator wires noted. Formal read per the Radiologist pending. 09/14/16 06:38 For unknown reasons, the patient has elected to not talk to me or follow commands on my examination. He appears to be faking that he is unconscious. As above, his alcohol level has returned substantially elevated at 0.32. He did not provide us a urine sample for a urine drug screen. The remainder of his workup is unremarkable. He can be discharged home once he is sober enough, or with a sober adult. Departure - Departure Disposition: Home, Self-Care 01 Condition: Fair Clinical Impression: Alcohol intoxication, Alcohol abuse, Drug-seeking behavior - Discharge Information Instructions: Alcohol Use Disorder, Alcohol Intoxication, [id number] Referrals: PCP,None [Primary Care Provider] - Forms: ED Department Discharge Additional Instructions: You were brought to the emergency room by EMS after complaining of chest pain. Workup in the ER included blood work, an ECG, and a chest x-ray. Your entire workup was unremarkable, with the exception of your alcohol level being found to be substantially elevated at 0.32. This is 4 times the legal limit for driving. This is the 3rd time this month that you have found to be intoxicated at this ER. Our medical records show that this is your 7th visit to this ER over the past month, all for complaints of pain, and always with a negative workup. You have received numerous prescriptions for narcotic pain relievers. This is very concerning for drug-seeking behavior. We STRONGLY recommend you seek professional help for your alcoholism and drug problem. We recommend [facility] at: [address] If any other problems, please do not hesitate to return to the ER. <Remington Infante - Last Filed: 09/14/16 18:52> Departure - Departure Time of Disposition: 09:25
--- NOTE | 2016-09-14 11:07 | CR ---
Chest: Portable view of the chest was obtained. Comparison: Previous chest x-ray of 09/12/16. Stimulating wires are again noted over the spine. Heart size and mediastinum are normal. Lungs are clear. Bony structures are grossly intact. Impression: 1. Nothing acute is appreciated on portable chest x-ray. Diagnostic code #2
== END 2016-09-14 09:26 | disposition home or self-care (01) ==
LOC: JD.ED 04:00
DX: F10.129 Alcohol abuse with intoxication, unspecified (principal); Z76.5 Malingerer [conscious simulation]; F17.210 Nicotine dependence, cigarettes, uncomplicated; Z88.1 Allergy status to other antibiotic agents; Z88.0 Allergy status to penicillin
CPT/HCPCS: 36415; 71010; 80053; 83880; 84484; 85025; 85379; 85610; 85730; 93005; 99285; G0480; 99283

== ENCOUNTER 2016-09-14 18:03 | Emergency (ER) | payer SELFPAY ==
[2016-09-14 18:12] VITALS: BP 133/91
[2016-09-14] MEDS ORDERED: Sodium Chloride 0.9% 10 ML Syringe FLUSH PRN (18:47)
[2016-09-14] MEDS ORDERED: Ondansetron 4 MG/2 ML SDV IVPUSH ONE (18:48)
[2016-09-14] MEDS ORDERED: Ketorolac 30 MG/ML SDV IVPUSH ONE (18:48)
--- NOTE | 2016-09-14 19:17 | EDM.PDOC ---
ED HPI GENERAL MEDICAL PROBLEM - General Chief Complaint: Flank Pain Stated Complaint: Flank pain Time Seen by Provider: 09/14/16 18:35 Source of Information: Reports: Patient, RN Notes Reviewed History Limitations: Reports: No Limitations - History of Present Illness INITIAL COMMENTS - FREE TEXT/NARRATIVE: 40 year old male presents to the ED today via ambulance with complaints of left flank pain for the past 2-3 hours. The pain radiates around to his LLQ. No testicle pain. He reports nausea but no vomiting. No hematuria. Last BM was this morning. No diarrhea. No fever or chills. This is his 5th visit to the ED this past week for this same complaint. He was in the ER this past evening for flank pain and alcohol intoxication. His workup last evening was unremarkable and was discharged around 10am this morning. The patient denies drinking alcohol since discharge but smells of ETOH. EMS gave him Dilaudid 0.5mg IV. Flank Pain Score (Numeric/FACES): 9 - Related Data Allergies Allergy/AdvReac Type Severity Reaction Status Date / Time azithromycin [From Zithromax] Allergy Airway Verified 09/14/16 18:12 Tightness cephalexin [From Keflex] Allergy Airway Verified 09/14/16 18:12 Tightness Penicillins Allergy Anaphylactic Verified 09/14/16 18:12 Shock Home Meds: Home Meds Cyclobenzaprine [Flexeril] 10 mg PO TID PRN #15 tablet 09/10/16 [Rx] Hydrocodone/Acetaminophen [Hydrocodon-Acetaminophen 5-325] 1 each PO QID PRN # 12 tablet 09/10/16 [Rx] Ondansetron [Zofran ODT] 4 mg PO Q4H PRN #15 tab.dis 09/10/16 [Rx] Past Medical History - Past Health History Medical/Surgical History: Denies Medical/Surgical History Gastrointestinal History: Reports: Other (See Below) Other Gastrointestinal History: states "I had an ulcer one time." Genitourinary History: Reports: Renal Calculus Musculoskeletal History: Reports: Back Pain, Chronic Other Musculoskeletal History: pain to right foot Psychiatric History: Reports: Addiction Other Psychiatric History: alcohol - Infectious Disease History Infectious Disease History: Reports: Chicken Pox - Past Surgical History GI Surgical History: Reports: Appendectomy Male Surgical History: Reports: Lithotripsy (ESWL) Musculoskeletal Surgical History: Reports: Other (See Below) Other Musculoskeletal Surgeries/Procedures:: back surgery Social & Family History - Family History Family Medical History: Noncontributory - Tobacco Use Smoking Status *Q: Current Every Day Smoker Years of Tobacco use: 25 Packs/Tins Daily: 1 - Caffeine Use Caffeine Use: Reports: Coffee Other Caffeine Use: unknown - Recreational Drug Use Recreational Drug Use: No Other Recreational Drug Type: patient denies drug use - Living Situation & Occupation Living situation: Reports: , with Significant Other (Fiance), with Family (3 kids) Occupation: Employed ([employer]) ED ROS GENERAL - Review of Systems Review Of Systems: See Below Constitutional: Reports: No Symptoms. Denies: Fever, Chills, Weakness Respiratory: Reports: No Symptoms. Denies: Shortness of Breath, Cough Cardiovascular: Reports: No Symptoms. Denies: Chest Pain GI/Abdominal: Reports: Nausea. Denies: Abdominal Pain, Vomiting : Reports: Flank Pain. Denies: Frequency, Hematuria ED EXAM, RENAL/ - Physical Exam Exam: See Below Exam Limited By: No Limitations General Appearance: Alert, WD/WN, No Apparent Distress Respiratory/Chest: No Respiratory Distress, Lungs Clear, Normal Breath Sounds Cardiovascular: Regular Rate, Rhythm GI/Abdominal: Normal Bowel Sounds, Soft, Non-Tender, No Distention Back Exam: Normal Inspection, Full Range of Motion, CVA Tenderness (L). No: CVA Tenderness (R) Neurological: Alert, Normal Cognition Psychiatric: Flat Affect Skin Exam: Warm, Dry, Intact Course - Vital Signs Last Recorded V/S: Last Vital Signs Temp 98.4 F 09/14/16 18:05 Pulse 88 09/14/16 18:05 Resp 16 09/14/16 18:05 BP 133/91 H 09/14/16 18:05 Pulse Ox 94 L 09/14/16 18:05 - Orders/Labs/Meds Orders: Active Orders 24 hr Category Date Time Status Peripheral IV Care [RC] . DIRECTED Care 09/14/16 18:48 Active UA W/MICROSCOPIC [URIN] Stat Lab 09/14/16 18:47 Uncollected Sodium Chloride 0.9% [Saline Flush] Med 09/14/16 18:47 Active 10 ml FLUSH ASDIRECTED PRN Peripheral IV Insertion Adult [OM.PC] Stat Oth 09/14/16 18:47 Ordered Medication Orders Sodium Chloride (Saline Flush) 10 ml FLUSH ASDIRECTED PRN PRN Reason: Keep Vein Open Last Admin: 09/14/16 19:06 Dose: 10 ml Labs: Laboratory Tests 09/14/16 09/14/16 Range/Units 19:05 19:05 WBC 4.99 (4.23-9.07) K/mm3 RBC 5.82 (4.63-6.08) M/mm3 Hgb 17.3 (13.7-17.5) gm/L Hct 50.1 (40.1-51.0) % MCV 86.1 (79.0-92.2) fl MCH 29.7 (25.7-32.2) pg MCHC 34.5 (32.2-35.5) g/dl RDW Std Deviation 46.1 H (35.1-43.9) fL Plt Count 218 (163-337) K/mm3 MPV 8.6 L (9.4-12.3) fl Neut % (Auto) 54.5 (34.0-67.9) % Lymph % (Auto) 35.5 (21.8-53.1) % [place] % (Auto) 7.2 (5.3-12.2) % Eos % (Auto) 2.2 (0.8-7.0) Baso % (Auto) 0.4 (0.1-1.2) % Neut # (Auto) 2.72 (1.78-5.38) K/mm3 Lymph # (Auto) 1.77 (1.32-3.57) K/mm3 [place] # (Auto) 0.36 (0.30-0.82) K/mm3 Eos # (Auto) 0.11 (0.04-0.54) K/mm3 Baso # (Auto) 0.02 (0.01-0.08) K/mm3 Sodium 144 (136-145) mEq/L Potassium 3.9 (3.5-5.1) mEq/L Chloride 109 H (98-107) mEq/L Carbon Dioxide 24 (21-32) mEq/L Anion Gap 14.9 (5-15) BUN 10 (7-18) mg/dL Creatinine 0.8 (0.7-1.3) mg/dL Est Cr Clr Drug Dosing TNP Estimated GFR (MDRD) > 60 (>60) mL/min BUN/Creatinine Ratio 12.5 L (14-18) Glucose 75 (74-106) mg/dL Calcium 8.3 L (8.5-10.1) mg/dL Total Bilirubin 0.3 (0.2-1.0) mg/dL AST 16 (15-37) U/L ALT 27 (16-63) U/L Alkaline Phosphatase 116 (46-116) U/L Total Protein 6.9 (6.4-8.2) g/dl Albumin 3.8 (3.4-5.0) g/dl Globulin 3.1 gm/dL Albumin/Globulin Ratio 1.2 (1-2) Ethyl Alcohol 0.12 (0.00) gm% Meds: Medications Generic Name Dose Route Start Last Admin Trade Name Freq PRN Reason Stop Dose Admin Sodium Chloride 10 ml 09/14/16 18:47 09/14/16 19:06 Saline Flush FLUSH 10 ml ASDIRECTED PRN Administration Keep Vein Open Discontinued Medications Generic Name Dose Route Start Last Admin Trade Name Freq PRN Reason Stop Dose Admin Ketorolac Tromethamine 30 mg 09/14/16 18:48 09/14/16 19:05 Toradol IVPUSH 09/14/16 18:49 30 mg ONETIME ONE Administration Ondansetron HCl 4 mg 09/14/16 18:48 09/14/16 19:04 Zofran IVPUSH 09/14/16 18:49 4 mg ONETIME ONE Administration - Re-Assessments/Exams Free Text/Narrative Re-Assessment/Exam: CBC and CMP are normal. ETOH is 0.12 which indicates that the patient has been drinking alcohol today. He refuses to provide urine sample. He was treated with Toradol and Zofran. He reports no relief with Toradol. He will not receive narcotics as he is intoxicated. Also concerns for drug seeking behavior. Patient is refusing to give any more information to staff. When asked questions , he will not answer. IV pulled. Patient will be discharged. Discussed case with Dr. Siu. He agrees no further workup is indicated and patient can be discharged. Departure - Departure Time of Disposition: 19:39 Disposition: Home, Self-Care 01 Condition: Good Clinical Impression: Drug-seeking behavior, Left flank pain - Discharge Information Referrals: PCP,None [Primary Care Provider] - Forms: ED Department Discharge Additional Instructions: Follow-up in the clinic tomorrow if you continue to have pain Follow-up with [facility] for substance abuse treatment No driving as you are intoxicated by your labs and received narcotic pain mediation prior to arrival to the ER. - My Orders Last 24 Hours: My Active Orders 09/14/16 18:47 UA W/MICROSCOPIC [URIN] Stat Sodium Chloride 0.9% [Saline Flush] 10 ml FLUSH ASDIRECTED PRN Peripheral IV Insertion Adult [OM.PC] Stat 09/14/16 18:48 Peripheral IV Care [RC] . DIRECTED - Assessment/Plan Last 24 Hours: My Active Orders 09/14/16 18:47 UA W/MICROSCOPIC [URIN] Stat Sodium Chloride 0.9% [Saline Flush] 10 ml FLUSH ASDIRECTED PRN Peripheral IV Insertion Adult [OM.PC] Stat 09/14/16 18:48 Peripheral IV Care [RC] . DIRECTED
== END 2016-09-14 20:05 | disposition home or self-care (01) ==
LOC: JD.ED 18:03
DX: R10.9 Unspecified abdominal pain (principal); Z76.5 Malingerer [conscious simulation]; F17.210 Nicotine dependence, cigarettes, uncomplicated; Z87.442 Personal history of urinary calculi; Z90.49 Acquired absence of other specified parts of digestive tract; Z98.890 Other specified postprocedural states; Z88.0 Allergy status to penicillin; Z88.1 Allergy status to other antibiotic agents
CPT/HCPCS: 36415; 80053; 85025; 96374; 96375; 99284; G0480; J1885; J2405; J7050

== ENCOUNTER 2016-09-15 13:23 | Emergency (ER) | payer SELFPAY ==
[2016-09-15 13:32] VITALS: BP 150/92
[2016-09-15] MEDS ORDERED: HYDROmorphone 1 MG/ML Syringe IVPUSH ONE (13:43)
[2016-09-15] MEDS ORDERED: Ondansetron 4 MG/2 ML SDV IVPUSH ONE (13:43)
[2016-09-15] MEDS ORDERED: Sodium Chloride 0.9% 500 ML IV ONE (13:43)
[2016-09-15] MEDS ORDERED: Sodium Chloride 0.9% 10 ML Syringe FLUSH PRN (13:44)
--- NOTE | 2016-09-15 14:00 | EDM.PDOC ---
ED HPI GENERAL MEDICAL PROBLEM - General Chief Complaint: Flank Pain Stated Complaint: [facility] Time Seen by Provider: 09/15/16 13:34 Source of Information: Reports: Patient, RN Notes Reviewed - History of Present Illness INITIAL COMMENTS - FREE TEXT/NARRATIVE: 40-year-old male comes in with left flank pain. He is had this intermittently for 2 days. The pain is more severe today. This starts in the left back radiates to the left flank now down to the left groin. Today the pain is been more persistent with nausea and some vomiting. He has no pain on the right back. He has had some mild voiding dysuria. No fever or chills. He does have history of right-sided kidney stone. Treatments BENCH TECHNICIAN: Reports: Acetaminophen, Other (see below) Other Treatments BENCH TECHNICIAN: zofran Left Flank Pain Score (Numeric/FACES): 8 - Related Data Allergies Allergy/AdvReac Type Severity Reaction Status Date / Time azithromycin [From Zithromax] Allergy Airway Verified 09/15/16 13:32 Tightness cephalexin [From Keflex] Allergy Airway Verified 09/15/16 13:32 Tightness Penicillins Allergy Anaphylactic Verified 09/15/16 13:32 Shock Home Meds: Home Meds Cyclobenzaprine [Flexeril] 10 mg PO TID PRN #15 tablet 09/10/16 [Rx] Hydrocodone/Acetaminophen [Hydrocodon-Acetaminophen 5-325] 1 each PO QID PRN # 12 tablet 09/10/16 [Rx] Ondansetron [Zofran ODT] 4 mg PO Q4H PRN #15 tab.dis 09/10/16 [Rx] Past Medical History - Past Health History Medical/Surgical History: Denies Medical/Surgical History Gastrointestinal History: Reports: Other (See Below) Other Gastrointestinal History: states "I had an ulcer one time." Genitourinary History: Reports: Renal Calculus Musculoskeletal History: Reports: Back Pain, Chronic Other Musculoskeletal History: pain to right foot Psychiatric History: Reports: Addiction Other Psychiatric History: alcohol - Infectious Disease History Infectious Disease History: Reports: Chicken Pox - Past Surgical History GI Surgical History: Reports: Appendectomy Male Surgical History: Reports: Lithotripsy (ESWL) Neurological Surgical History: Reports: Other (See Below) Musculoskeletal Surgical History: Reports: Other (See Below) Other Musculoskeletal Surgeries/Procedures:: back surgery Social & Family History - Family History Family Medical History: Noncontributory - Tobacco Use Smoking Status *Q: Current Every Day Smoker Years of Tobacco use: 25 Packs/Tins Daily: 1 - Caffeine Use Caffeine Use: Reports: Coffee Other Caffeine Use: unknown - Recreational Drug Use Recreational Drug Use: No Other Recreational Drug Type: patient denies drug use - Living Situation & Occupation Living situation: Reports: , with Significant Other (Fiance), with Family (3 kids) Occupation: Employed ([employer]) ED ROS GENERAL - Review of Systems Review Of Systems: See Below Constitutional: Denies: Fever, Chills HEENT: Reports: No Symptoms Respiratory: Denies: Shortness of Breath, Pleuritic Chest Pain Cardiovascular: Denies: Chest Pain GI/Abdominal: Reports: Abdominal Pain (Left flank pain), Nausea, Vomiting : Reports: Dysuria Musculoskeletal: Reports: Back Pain (Left-sided) Skin: Reports: No Symptoms Neurological: Reports: No Symptoms ED EXAM, RENAL/ - Physical Exam Exam: See Below General Appearance: Alert, Severe Distress Throat/Mouth: Normal Inspection, Normal Oropharynx Head: Atraumatic. No: Facial Swelling Neck: Supple, Full Range of Motion Respiratory/Chest: No Respiratory Distress, Lungs Clear, Normal Breath Sounds Cardiovascular: Regular Rate, Rhythm GI/Abdominal: Tender (Left abdomen and flank) Back Exam: CVA Tenderness (L) Extremities: Normal Inspection, Normal Range of Motion Neurological: Alert, Oriented, No Motor/Sensory Deficits Skin Exam: Warm, Normal Color Course - Vital Signs Last Recorded V/S: Last Vital Signs Temp 98.1 F 09/15/16 13:26 Pulse 84 09/15/16 13:26 Resp 18 09/15/16 13:26 BP 150/92 H 09/15/16 13:26 Pulse Ox 99 09/15/16 13:26 - Orders/Labs/Meds Orders: Active Orders 24 hr Category Date Time Status Peripheral IV Care [RC] . DIRECTED Care 09/15/16 13:44 Active Sodium Chloride 0.9% [Saline Flush] Med 09/15/16 13:44 Active 10 ml FLUSH ASDIRECTED PRN Peripheral IV Insertion Adult [OM.PC] Stat Oth 09/15/16 13:43 Ordered Medication Orders Sodium Chloride (Saline Flush) 10 ml FLUSH ASDIRECTED PRN PRN Reason: Keep Vein Open Last Admin: 09/15/16 13:55 Dose: 10 ml Labs: Laboratory Tests 09/15/16 09/15/16 09/15/16 Range/Units 13:50 13:50 13:50 WBC 7.67 (4.23-9.07) K/mm3 RBC 5.77 (4.63-6.08) M/mm3 Hgb 17.3 (13.7-17.5) gm/L Hct 48.3 (40.1-51.0) % MCV 83.7 (79.0-92.2) fl MCH 30.0 (25.7-32.2) pg MCHC 35.8 H (32.2-35.5) g/dl RDW Std Deviation 42.2 (35.1-43.9) fL Plt Count 223 (163-337) K/mm3 MPV 8.7 L (9.4-12.3) fl Neut % (Auto) 80.5 H (34.0-67.9) % Lymph % (Auto) 12.5 L (21.8-53.1) % [place] % (Auto) 6.5 (5.3-12.2) % Eos % (Auto) 0.1 L (0.8-7.0) Baso % (Auto) 0.3 (0.1-1.2) % Neut # (Auto) 6.17 H (1.78-5.38) K/mm3 Lymph # (Auto) 0.96 L (1.32-3.57) K/mm3 [place] # (Auto) 0.50 (0.30-0.82) K/mm3 Eos # (Auto) 0.01 L (0.04-0.54) K/mm3 Baso # (Auto) 0.02 (0.01-0.08) K/mm3 Sodium 138 (136-145) mEq/L Potassium 3.6 (3.5-5.1) mEq/L Chloride 104 (98-107) mEq/L Carbon Dioxide 25 (21-32) mEq/L Anion Gap 12.6 (5-15) BUN 13 (7-18) mg/dL Creatinine 0.9 (0.7-1.3) mg/dL Est Cr Clr Drug Dosing TNP Estimated GFR (MDRD) > 60 (>60) mL/min BUN/Creatinine Ratio 14.4 (14-18) Glucose 124 H (74-106) mg/dL Calcium 9.3 (8.5-10.1) mg/dL Total Bilirubin 0.9 (0.2-1.0) mg/dL AST 20 (15-37) U/L ALT 26 (16-63) U/L Alkaline Phosphatase 126 H (46-116) U/L Total Protein 7.0 (6.4-8.2) g/dl Albumin 3.9 (3.4-5.0) g/dl Globulin 3.1 gm/dL Albumin/Globulin Ratio 1.3 (1-2) Ethyl Alcohol 0.00 (0.00) gm% Meds: Medications Generic Name Dose Route Start Last Admin Trade Name Freq PRN Reason Stop Dose Admin Sodium Chloride 10 ml 09/15/16 13:44 09/15/16 13:55 Saline Flush FLUSH 10 ml ASDIRECTED PRN Administration Keep Vein Open Discontinued Medications Generic Name Dose Route Start Last Admin Trade Name Freq PRN Reason Stop Dose Admin Hydromorphone HCl 1 mg 09/15/16 13:43 09/15/16 13:56 Dilaudid IVPUSH 09/15/16 13:44 1 mg ONETIME ONE Administration Sodium Chloride 500 mls @ 999 mls/hr 09/15/16 13:43 09/15/16 13:53 Normal Saline IV 09/15/16 14:13 999 mls/hr .BOLUS ONE Administration Ondansetron HCl 4 mg 09/15/16 13:43 09/15/16 13:54 Zofran IVPUSH 09/15/16 13:44 4 mg ONETIME ONE Administration - Re-Assessments/Exams Free Text/Narrative Re-Assessment/Exam: 09/15/16 15:[address] shows a 2 mm stone in the left kidney, does not show any sign of a traveling stone or hydronephrosis. I did not realize at the time of my initial exam he is now had 6 visits in the last 11 days to our ED, 2 visits yesterday. Old these visits involve some type of pain and most of these visits he has been quite intoxicated. His blood alcohol today is 0. He was advised to follow-up at [facility] for drug and alcohol eval, further treatment or counseling as needed. That advice will be repeated today. Departure - Departure Time of Disposition: 15:08 Disposition: Home, Self-Care 01 Condition: Fair Clinical Impression: Back pain Qualifiers: Back pain location: low back pain Chronicity: acute Back pain laterality: left Sciatica presence: without sciatica Qualified Code(s): M54.5 - Low back pain Vomiting Qualifiers: Vomiting Intractability: unspecified - Discharge Information Referrals: PCP,Not In Area [Primary Care Provider] - Forms: ED Department Discharge Additional Instructions: Try continue to avoid further alcohol, you may Tylenol or ibuprofen as needed for flank or back discomfort. Zofran if needed for further nausea or vomiting. It was recommended to you yesterday that you follow-up at [facility] for drug and alcohol evaluation. I do highly recommend that you do that and get into some type of treatment program that would be appropriate for you. Call [phone] for appointment. - My Orders Last 24 Hours: My Active Orders 09/15/16 13:43 Peripheral IV Insertion Adult [OM.PC] Stat 09/15/16 13:44 Peripheral IV Care [RC] . DIRECTED Sodium Chloride 0.9% [Saline Flush] 10 ml FLUSH ASDIRECTED PRN - Assessment/Plan Last 24 Hours: My Active Orders 09/15/16 13:43 Peripheral IV Insertion Adult [OM.PC] Stat 09/15/16 13:44 Peripheral IV Care [RC] . DIRECTED Sodium Chloride 0.9% [Saline Flush] 10 ml FLUSH ASDIRECTED PRN
--- NOTE | 2016-09-15 14:43 | CT ---
CT abdomen and pelvis Technique: Multiple axial sections were obtained from above the dome of the diaphragm inferiorly through the pubic symphysis. Intravenous and oral contrast was not utilized. Study has been performed as a ureteral stone protocol. Comparison: Previous CT abdomen and pelvis exam of 09/06/16. Findings: Left kidney shows a small nonobstructing stone measuring about 2 mm. This is stable from prior exam. Kidneys show no other abnormal calcifications. No ureteral dilatation is seen. No ureteral calculi are seen. Visualized lung bases shows nothing acute. Noncontrast appearance of the liver and spleen shows no focal abnormality. Adrenal glands show no nodule. Pancreas is within normal limits. Gallbladder shows no calcified gallstones. Aorta shows no aneurysmal dilatation. No retroperitoneal adenopathy or mesenteric abnormalities are seen. No pelvic mass or adenopathy is seen. No bowel dilatation is seen. Appendix is not visualized with certainty. 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 Stimulating wires are again noted within the thoracic spine. Impression: 1. 2 mm nonobstructing stone within the left kidney which is stable from prior CT exam. 2. No ureteral dilatation or ureteral stone is seen. 3. Other incidental findings. Nothing acute is appreciated on noncontrast CT study of the abdomen and pelvis. Diagnostic code #2
== END 2016-09-15 15:24 | disposition home or self-care (01) ==
LOC: JD.ED 13:23
DX: N20.0 Calculus of kidney (principal); R11.10 Vomiting, unspecified; F17.210 Nicotine dependence, cigarettes, uncomplicated; Z87.442 Personal history of urinary calculi; Z90.49 Acquired absence of other specified parts of digestive tract; Z98.890 Other specified postprocedural states; Z88.0 Allergy status to penicillin; Z88.1 Allergy status to other antibiotic agents
CPT/HCPCS: 36415; 74176; 80053; 85025; 96361; 96374; 96375; 99285; G0480; J1170; J2405; J7040; J7050; 99284

== ENCOUNTER 2016-09-16 11:38 | Emergency (ER) | payer SELFPAY ==
[2016-09-16 11:55] VITALS: BP 129/93
[2016-09-16] MEDS ORDERED: Ketorolac 60 MG/2 ML SDV IM ONE (12:12)
[2016-09-16] MEDS ORDERED: Promethazine 25 MG/ML SDV IM ONE (12:13)
--- NOTE | 2016-09-16 12:36 | EDM.PDOC ---
ED HPI GENERAL MEDICAL PROBLEM - General Chief Complaint: Flank Pain Stated Complaint: L SIDE FLANK PAIN Time Seen by Provider: 09/16/16 12:00 Source of Information: Reports: Patient, Old Records (recent ER visits) History Limitations: Reports: Intoxication - History of Present Illness INITIAL COMMENTS - FREE TEXT/NARRATIVE: 40-year-old male presents for evaluation treatment of left flank pain. He is a poor historian. States that the flank pain has been going on for several days. He reports associated symptoms of nausea and vomiting. Reports that he vomited 6 -7 times today. He has been taking ibuprofen 800 mg without symptom relief. Patient reports pain is steadily worsening. He describes it as a pain on the left side of his back radiating to his left flank and left groin. He describes it as a sharp pain in the back and a burning sensation across his flank. States he "feels like he was kicked in the groin ". Reports this pain feels similar to several years ago when he had a kidney stone. Reports that he had to have some type of surgical procedure to have the stone removed. He also reports that he had a stent placed. This was done in [place] and we have no record of this. Upon interviewing the patient he is initially sitting down. He will not make eye contact with me. Miller through our conversation he gets up and paces around the room. Several occasions he refuses to sit on the bedside so I can examine him. Review the patient's records show that this is his seventh visit in the last 10 days for the same problem. Review of previous ER records shows he has had 2 CTs with the most recent being yesterday. He does have a 2 mm stone in the left kidney that is unchanged according to yesterday CT. No ureteral stents or ureteral dilation. Recent lab studies have also been unremarkable. He has also had a complete workup including an EKG, troponin, BNP. Of note he has had his alcohol level checked on several occasions has been as high as 0.34. Treatments TERMINAL SUPERINTENDENT: Reports: Other (see below) Other Treatments TERMINAL SUPERINTENDENT: motrin 1600 mg Left Flank Pain Score (Numeric/FACES): 8 - Related Data Allergies Allergy/AdvReac Type Severity Reaction Status Date / Time azithromycin [From Zithromax] Allergy Airway Verified 09/15/16 13:32 Tightness cephalexin [From Keflex] Allergy Airway Verified 09/15/16 13:32 Tightness Penicillins Allergy Anaphylactic Verified 09/15/16 13:32 Shock Home Meds: Home Meds Cyclobenzaprine [Flexeril] 10 mg PO TID PRN #15 tablet 09/10/16 [Rx] Hydrocodone/Acetaminophen [Hydrocodon-Acetaminophen 5-325] 1 each PO QID PRN # 12 tablet 09/10/16 [Rx] Ondansetron [Zofran ODT] 4 mg PO Q4H PRN #15 tab.dis 09/10/16 [Rx] Past Medical History - Past Health History Medical/Surgical History: Denies Medical/Surgical History Gastrointestinal History: Reports: Other (See Below) Other Gastrointestinal History: states "I had an ulcer one time." Genitourinary History: Reports: Renal Calculus Musculoskeletal History: Reports: Back Pain, Chronic Other Musculoskeletal History: pain to right foot Psychiatric History: Reports: Addiction Other Psychiatric History: alcohol - Infectious Disease History Infectious Disease History: Reports: Chicken Pox - Past Surgical History GI Surgical History: Reports: Appendectomy Male Surgical History: Reports: Lithotripsy (ESWL) Neurological Surgical History: Reports: Other (See Below) Musculoskeletal Surgical History: Reports: Other (See Below) Other Musculoskeletal Surgeries/Procedures:: back surgery Social & Family History - Family History Family Medical History: Noncontributory - Tobacco Use Smoking Status *Q: Current Every Day Smoker Years of Tobacco use: 25 Packs/Tins Daily: 1 - Caffeine Use Caffeine Use: Reports: Coffee Other Caffeine Use: unknown - Recreational Drug Use Recreational Drug Use: No Other Recreational Drug Type: patient denies drug use - Living Situation & Occupation Living situation: Reports: , with Significant Other (Fiance), with Family (3 kids) Occupation: Employed ([employer]) ED ROS GENERAL - Review of Systems Review Of Systems: See Below GI/Abdominal: Reports: Nausea, Vomiting : Reports: Flank Pain (left) ED EXAM, RENAL/ - Physical Exam Exam: See Below Exam Limited By: No Limitations General Appearance: Alert, WD/WN, No Apparent Distress Respiratory/Chest: No Respiratory Distress, Lungs Clear, Normal Breath Sounds Cardiovascular: Normal Peripheral Pulses, Regular Rate, Rhythm, No Murmur GI/Abdominal: Soft, Non-Tender Neurological: Alert Psychiatric: Normal Affect, Normal Mood Skin Exam: Warm, Dry, Normal Color Course - Vital Signs Last Recorded V/S: Last Vital Signs Temp 36.3 C 09/16/16 11:53 Pulse 123 H 09/16/16 11:53 Resp 20 09/16/16 11:53 BP 129/93 H 09/16/16 11:53 Pulse Ox 98 09/16/16 11:53 - Orders/Labs/Meds Labs: Laboratory Tests 09/16/16 09/16/16 09/16/16 Range/Units 12:30 12:30 12:43 WBC 6.11 (4.23-9.07) K/mm3 RBC 5.49 (4.63-6.08) M/mm3 Hgb 16.6 (13.7-17.5) gm/L Hct 47.0 (40.1-51.0) % MCV 85.6 (79.0-92.2) fl MCH 30.2 (25.7-32.2) pg MCHC 35.3 (32.2-35.5) g/dl RDW Std Deviation 44.2 H (35.1-43.9) fL Plt Count 194 (163-337) K/mm3 MPV 8.7 L (9.4-12.3) fl Neut % (Auto) 62.4 (34.0-67.9) % Lymph % (Auto) 29.1 (21.8-53.1) % Sharp % (Auto) 6.2 (5.3-12.2) % Eos % (Auto) 2.1 (0.8-7.0) Baso % (Auto) 0.2 (0.1-1.2) % Neut # (Auto) 3.81 (1.78-5.38) K/mm3 Lymph # (Auto) 1.78 (1.32-3.57) K/mm3 Sharp # (Auto) 0.38 (0.30-0.82) K/mm3 Eos # (Auto) 0.13 (0.04-0.54) K/mm3 Baso # (Auto) 0.01 (0.01-0.08) K/mm3 Sodium (136-145) mEq/L Potassium (3.5-5.1) mEq/L Chloride (98-107) mEq/L Carbon Dioxide (21-32) mEq/L Anion Gap (5-15) BUN (7-18) mg/dL Creatinine (0.7-1.3) mg/dL Est Cr Clr Drug Dosing Estimated GFR (MDRD) (>60) mL/min BUN/Creatinine Ratio (14-18) Glucose (74-106) mg/dL Calcium (8.5-10.1) mg/dL Total Bilirubin (0.2-1.0) mg/dL AST (15-37) U/L ALT (16-63) U/L Alkaline Phosphatase (46-116) U/L Total Protein (6.4-8.2) g/dl Albumin (3.4-5.0) g/dl Globulin gm/dL Albumin/Globulin Ratio (1-2) Urine Color Yellow (Yellow) Urine Appearance Clear (Clear) Urine pH 6.5 (5.0-8.0) Ur Specific [place] 1.025 (1.005-1.030) Urine Protein Negative (Negative) Urine Glucose (UA) Negative (Negative) Urine Ketones Negative (Negative) Urine Occult Blood Negative (Negative) Urine Nitrite Negative (Negative) Urine Bilirubin Negative (Negative) Urine Urobilinogen 0.2 (0.2-1.0) Ur Leukocyte Esterase Negative (Negative) Urine RBC Not seen (0-5) /hpf Urine WBC 0-5 (0-5) /hpf Ur Epithelial Cells Not seen (0-5) /hpf Urine Bacteria Few (FEW) /hpf Urine Mucus Few (FEW) /hpf Urine Opiates Screen Negative (NEGATIVE) Ur Buprenorphine Scrn Negative (NEGATIVE) Ur Oxycodone Screen Negative (NEGATIVE) Urine Methadone Screen Negative (NEGATIVE) Ur Propoxyphene Screen Negative (NEGATIVE) Ur Barbiturates Screen Negative (NEGATIVE) Ur Tricyclics Screen Negative (NEGATIVE) Ur Phencyclidine Scrn Negative (NEGATIVE) Ur Amphetamine Screen Negative (NEGATIVE) U Methamphetamines Scrn Negative (NEGATIVE) U Benzodiazepines Scrn Negative (NEGATIVE) U Cocaine Metab Screen Negative (NEGATIVE) U Marijuana (THC) Screen Negative (NEGATIVE) Ethyl Alcohol (0.00) gm% 09/16/16 Range/Units 12:43 WBC (4.23-9.07) K/mm3 RBC (4.63-6.08) M/mm3 Hgb (13.7-17.5) gm/L Hct (40.1-51.0) % MCV (79.0-92.2) fl MCH (25.7-32.2) pg MCHC (32.2-35.5) g/dl RDW Std Deviation (35.1-43.9) fL Plt Count (163-337) K/mm3 MPV (9.4-12.3) fl Neut % (Auto) (34.0-67.9) % Lymph % (Auto) (21.8-53.1) % Sharp % (Auto) (5.3-12.2) % Eos % (Auto) (0.8-7.0) Baso % (Auto) (0.1-1.2) % Neut # (Auto) (1.78-5.38) K/mm3 Lymph # (Auto) (1.32-3.57) K/mm3 Sharp # (Auto) (0.30-0.82) K/mm3 Eos # (Auto) (0.04-0.54) K/mm3 Baso # (Auto) (0.01-0.08) K/mm3 Sodium 145 (136-145) mEq/L Potassium 3.7 (3.5-5.1) mEq/L Chloride 109 H (98-107) mEq/L Carbon Dioxide 25 (21-32) mEq/L Anion Gap 14.7 (5-15) BUN 10 (7-18) mg/dL Creatinine 0.9 (0.7-1.3) mg/dL Est Cr Clr Drug Dosing TNP Estimated GFR (MDRD) > 60 (>60) mL/min BUN/Creatinine Ratio 11.1 L (14-18) Glucose 159 H (74-106) mg/dL Calcium 8.5 (8.5-10.1) mg/dL Total Bilirubin 0.4 (0.2-1.0) mg/dL AST 22 (15-37) U/L ALT 28 (16-63) U/L Alkaline Phosphatase 121 H (46-116) U/L Total Protein 6.7 (6.4-8.2) g/dl Albumin 3.7 (3.4-5.0) g/dl Globulin 3.0 gm/dL Albumin/Globulin Ratio 1.2 (1-2) Urine Color (Yellow) Urine Appearance (Clear) Urine pH (5.0-8.0) Ur Specific [place] (1.005-1.030) Urine Protein (Negative) Urine Glucose (UA) (Negative) Urine Ketones (Negative) Urine Occult Blood (Negative) Urine Nitrite (Negative) Urine Bilirubin (Negative) Urine Urobilinogen (0.2-1.0) Ur Leukocyte Esterase (Negative) Urine RBC (0-5) /hpf Urine WBC (0-5) /hpf Ur Epithelial Cells (0-5) /hpf Urine Bacteria (FEW) /hpf Urine Mucus (FEW) /hpf Urine Opiates Screen (NEGATIVE) Ur Buprenorphine Scrn (NEGATIVE) Ur Oxycodone Screen (NEGATIVE) Urine Methadone Screen (NEGATIVE) Ur Propoxyphene Screen (NEGATIVE) Ur Barbiturates Screen (NEGATIVE) Ur Tricyclics Screen (NEGATIVE) Ur Phencyclidine Scrn (NEGATIVE) Ur Amphetamine Screen (NEGATIVE) U Methamphetamines Scrn (NEGATIVE) U Benzodiazepines Scrn (NEGATIVE) U Cocaine Metab Screen (NEGATIVE) U Marijuana (THC) Screen (NEGATIVE) Ethyl Alcohol 0.14 (0.00) gm% Meds: Medications Discontinued Medications Generic Name Dose Route Start Last Admin Trade Name Vignesh PRN Reason Stop Dose Admin Ketorolac Tromethamine 60 mg 09/16/16 12:12 09/16/16 12:20 Toradol IM 09/16/16 12:13 60 mg ONETIME ONE Administration Promethazine HCl 25 mg 09/16/16 12:13 09/16/16 12:17 Phenergan IM 09/16/16 12:14 25 mg ONETIME ONE Administration - Re-Assessments/Exams Free Text/Narrative Re-Assessment/Exam: 09/16/16 12:58 The patient is complaining to nursing staff that the nausea medication is not working. He received an IM injection of Phenergan about 30 minutes ago. He started complaining that the injection wasn't working about 10 minutes afterwards. At this point he wants to go home. I have not received the remainder of his lab results however we were able to obtain blood and urine samples. I will have him sign out AMA. I am unwilling to give him any medications for pain or nausea as he will not wait for lab results and to formulate a plan. Patient received papers for AMA but refused to sign and eloped. 09/16/16 13:05 Patient was searched on the [place] prescription drug registry this was amended to include [place]. He has received 11 prescriptions for controlled substances from 6 different prescribers within the last year. Of note his last drug screen on 09/12 was negative. He did receive 2 prescriptions for hydrocodone 1 on 09/07 and 1 on 09/11 for 10 and 12 tabs respectively. Departure - Departure Time of Disposition: 13:00 Disposition: Eloped 07 Condition: Undetermined Clinical Impression: Drug-seeking behavior - Discharge Information Referrals: PCP,None [Primary Care Provider] - Forms: ED Department Discharge Additional Instructions: You decided to leave AMA today. Recommend follow-up with urology. Call [phone] to schedule with a urologist at [facility] in [place]. Please return to the ER should your symptoms change or worsen.
== END 2016-09-16 12:53 | disposition left against medical advice (07) ==
LOC: JD.ED 11:38
DX: Z76.5 Malingerer [conscious simulation] (principal); F17.210 Nicotine dependence, cigarettes, uncomplicated; Z88.1 Allergy status to other antibiotic agents; Z88.0 Allergy status to penicillin; Z87.442 Personal history of urinary calculi; Z90.49 Acquired absence of other specified parts of digestive tract
CPT/HCPCS: 36415; 80053; 80306; 81001; 85025; 96372; 99284; G0480; J1885; J2550; 99283

== ENCOUNTER 2016-09-16 18:03 | Emergency (ER) | payer SELFPAY ==
[2016-09-16 18:15] VITALS: BP 129/78
[2016-09-16] MEDS ORDERED: Ketorolac 30 MG/ML SDV IVPUSH ONE (18:16)
--- NOTE | 2016-09-16 18:17 | EDM.PDOC ---
ED HPI GENERAL MEDICAL PROBLEM - General Chief Complaint: Flank Pain Stated Complaint: [facility] Time Seen by Provider: 09/16/16 18:11 Source of Information: Reports: Patient, EMS History Limitations: Reports: No Limitations - History of Present Illness INITIAL COMMENTS - FREE TEXT/NARRATIVE: The patient presents with left flank pain. He was here earlier in the day and a complete work up was done. His CBC and CMP looked good. His UA was negative for UTI and blood. His drug screen was negative. He left AMA. He is back and he says he still has left flank pain and nausea. EMS put an IV in and gave him zofran IV. He has no fever, chills, cough, chest pain or shortness of breath. The patient has been here multiple times this month and last month. He has had CTs and there is a small stone in the kidney but not the ureter. Onset: Gradual Duration: Day(s): (2) Location: Reports: Other (Left flank) Quality: Reports: Sharp Severity: Moderate Improves with: Reports: None Worsens with: Reports: None Associated Symptoms: Reports: Nausea/Vomiting. Denies: Chest Pain, Cough, Shortness of Breath - Related Data Allergies Allergy/AdvReac Type Severity Reaction Status Date / Time azithromycin [From Zithromax] Allergy Airway Verified 09/15/16 13:32 Tightness cephalexin [From Keflex] Allergy Airway Verified 09/15/16 13:32 Tightness Penicillins Allergy Anaphylactic Verified 09/15/16 13:32 Shock Home Meds: Home Meds Cyclobenzaprine [Flexeril] 10 mg PO TID PRN #15 tablet 09/10/16 [Rx] Hydrocodone/Acetaminophen [Hydrocodon-Acetaminophen 5-325] 1 each PO QID PRN # 12 tablet 09/10/16 [Rx] Ondansetron [Zofran ODT] 4 mg PO Q4H PRN #15 tab.dis 09/10/16 [Rx] Ondansetron [Zofran ODT] 4 mg PO Q6H PRN #20 tab.dis 09/16/16 [Rx] Past Medical History - Past Health History Medical/Surgical History: Denies Medical/Surgical History Gastrointestinal History: Reports: Other (See Below) Other Gastrointestinal History: states "I had an ulcer one time." Genitourinary History: Reports: Renal Calculus Musculoskeletal History: Reports: Back Pain, Chronic Other Musculoskeletal History: pain to right foot Psychiatric History: Reports: Addiction Other Psychiatric History: alcohol - Infectious Disease History Infectious Disease History: Reports: Chicken Pox - Past Surgical History GI Surgical History: Reports: Appendectomy Male Surgical History: Reports: Lithotripsy (ESWL) Neurological Surgical History: Reports: Other (See Below) Musculoskeletal Surgical History: Reports: Other (See Below) Other Musculoskeletal Surgeries/Procedures:: back surgery Social & Family History - Family History Family Medical History: Noncontributory - Tobacco Use Smoking Status *Q: Current Every Day Smoker Years of Tobacco use: 25 Packs/Tins Daily: 1 - Caffeine Use Caffeine Use: Reports: Coffee Other Caffeine Use: unknown - Recreational Drug Use Recreational Drug Use: No Other Recreational Drug Type: patient denies drug use - Living Situation & Occupation Living situation: Reports: , with Significant Other (Fiance), with Family (3 kids) Occupation: Employed ([employer]) ED ROS GENERAL - Review of Systems Review Of Systems: See Below Constitutional: Reports: No Symptoms HEENT: Reports: No Symptoms Respiratory: Reports: No Symptoms Cardiovascular: Reports: No Symptoms Endocrine: Reports: No Symptoms GI/Abdominal: Reports: Abdominal Pain (Left), Nausea, Vomiting : Reports: Flank Pain (Left) Musculoskeletal: Reports: No Symptoms Skin: Reports: No Symptoms ED EXAM, RENAL/ - Physical Exam Exam: See Below Exam Limited By: No Limitations General Appearance: Alert, No Apparent Distress Ears: Normal External Exam Nose: Normal Inspection Head: Atraumatic, Normocephalic Neck: Normal Inspection Respiratory/Chest: No Respiratory Distress, Lungs Clear, Normal Breath Sounds Cardiovascular: Regular Rate, Rhythm, No Edema, No Murmur GI/Abdominal: Soft, No Organomegaly, No Mass, Tender (Mild to the left abdomen) Back Exam: CVA Tenderness (L) (Moderate) Course - Re-Assessments/Exams Free Text/Narrative Re-Assessment/Exam: 09/16/16 18:15 His labs looked good earlier in the morning. His ETOH was 0.14. I will give him some toradol 30mg IV and a prescription for some zofran. 09/16/16 18:19 The patient left before completion of service. He did not sign out AMA. Departure - Departure Time of Disposition: 18:20 Disposition: Home, Self-Care 01 Condition: Good Clinical Impression: Left flank pain Nausea and vomiting Qualifiers: Vomiting type: unspecified Vomiting Intractability: non-intractable Qualified Code(s): R11.2 - Nausea with vomiting, unspecified - Discharge Information Prescriptions: Ondansetron [Zofran ODT] 4 mg PO Q6H PRN #20 tab.dis PRN Reason: Nausea/Vomiting Forms: ED Department Discharge Additional Instructions: Follow up with your doctor.
== END 2016-09-16 18:23 | disposition home or self-care (01) ==
LOC: JD.ED 18:03
DX: R10.9 Unspecified abdominal pain (principal); R11.2 Nausea with vomiting, unspecified; F17.210 Nicotine dependence, cigarettes, uncomplicated; Z90.49 Acquired absence of other specified parts of digestive tract; Z88.1 Allergy status to other antibiotic agents; Z88.0 Allergy status to penicillin; Z87.442 Personal history of urinary calculi
CPT/HCPCS: 99284

== ENCOUNTER 2016-09-19 12:05 | Emergency (ER) | payer SELFPAY ==
[2016-09-19 12:19] VITALS: BP 121/97
--- NOTE | 2016-09-19 12:48 | EDM.PDOC ---
ED HPI GENERAL MEDICAL PROBLEM - General Chief Complaint: Flank Pain Stated Complaint: FLANK PAIN Time Seen by Provider: 09/19/16 12:35 Source of Information: Reports: Patient History Limitations: Reports: No Limitations - History of Present Illness INITIAL COMMENTS - FREE TEXT/NARRATIVE: Patient is a 40-year-old male presents ED complaining of left flank pain. Patient states this started approximately 4 days ago. Described as a dull achy sensation with no precipitating factors to increase or decrease the discomfort. States he's been mildly nauseated. Patient has been seen multiple times in the ER for similar findings. He was diagnosed with a kidney stone measuring 2 mm in diameter to the left kidney. Patient does have a history of lumbar spine surgery and was on a pain contract at one time prior to having the nerve endings burnt and placement of a neurostimulator located on the left side. Pain is just superior to the battery pack. Denies any recent trauma or activity that may precipitated this discomfort. He has taken ibuprofen and Tylenol along with Zofran with regular relief. Continues to have intermittent nausea and vomiting. Has been drinking fluids and eating. Pain is constant in nature with waxing waning in intensity. Denies any fever/chills, shortness of breath, chest pain, abdominal pain, diarrhea, constipation, blood in stool, or any additional complaints. Treatments MANAGER BEAUTY: Reports: NSAIDS Left Flank Pain Score (Numeric/FACES): 8 - Related Data Allergies Allergy/AdvReac Type Severity Reaction Status Date / Time azithromycin [From Zithromax] Allergy Airway Verified 09/15/16 13:32 Tightness cephalexin [From Keflex] Allergy Airway Verified 09/15/16 13:32 Tightness Penicillins Allergy Anaphylactic Verified 09/15/16 13:32 Shock Home Meds: Home Meds Acetaminophen [Acetaminophen Extra Strength] 1,000 mg PO Q6H PRN 09/19/16 [ History] Ibuprofen 800 mg PO Q6H PRN 09/19/16 [History] Past Medical History - Past Health History Medical/Surgical History: Denies Medical/Surgical History Gastrointestinal History: Reports: Other (See Below) Other Gastrointestinal History: states "I had an ulcer one time." Genitourinary History: Reports: Renal Calculus Musculoskeletal History: Reports: Back Pain, Chronic Other Musculoskeletal History: pain to right foot Psychiatric History: Reports: Addiction Other Psychiatric History: alcohol - Infectious Disease History Infectious Disease History: Reports: Chicken Pox - Past Surgical History GI Surgical History: Reports: Appendectomy Male Surgical History: Reports: Lithotripsy (ESWL) Musculoskeletal Surgical History: Reports: Other (See Below) Other Musculoskeletal Surgeries/Procedures:: back surgery Social & Family History - Family History Family Medical History: Noncontributory - Tobacco Use Smoking Status *Q: Current Every Day Smoker Years of Tobacco use: 15 Packs/Tins Daily: 1 - Caffeine Use Caffeine Use: Reports: Coffee Other Caffeine Use: unknown - Recreational Drug Use Recreational Drug Use: No Other Recreational Drug Type: patient denies drug use - Living Situation & Occupation Living situation: Reports: , with Significant Other (Fiance), with Family (3 kids) Occupation: Employed ([employer]) ED ROS GENERAL - Review of Systems Review Of Systems: ROS reveals no pertinent complaints other than HPI. ED EXAM, GI/ABD - Physical Exam Exam: See Below Exam Limited By: No Limitations General Appearance: Alert, WD/WN, No Apparent Distress Ears: Hearing Grossly Normal Nose: Normal Inspection Throat/Mouth: Normal Voice, No Airway Compromise Neck: Normal Inspection, Supple Respiratory/Chest: No Respiratory Distress, Lungs Clear, Normal Breath Sounds, No Accessory Muscle Use, Chest Non-Tender Cardiovascular: Normal Peripheral Pulses, Regular Rate, Rhythm GI/Abdominal Exam: Normal Bowel Sounds, Soft, Non-Tender, No Organomegaly, No Distention (Male) Exam: Other (Left flank pain, no bruising, swelling, rash, or wounds present.) Back Exam: Normal Inspection (Left lower back). No: Muscle Spasm, Paraspinal Tenderness, Vertebral Tenderness, Other Extremities: Normal Inspection, Non-Tender, No Pedal Edema, Normal Capillary Refill Neurological: Alert, Oriented, CN II-XII Intact, Normal Cognition, Normal Gait, Normal Reflexes, No Motor/Sensory Deficits Psychiatric: Normal Affect, Normal Mood Skin Exam: Warm, Dry, Intact, Normal Color, No Rash Course - Vital Signs Last Recorded V/S: Last Vital Signs Temp 97.5 F 09/19/16 12:15 Pulse 93 09/19/16 12:15 Resp 16 09/19/16 12:15 BP 121/97 H 09/19/16 12:15 Pulse Ox 96 09/19/16 12:15 - Orders/Labs/Meds Orders: Active Orders 24 hr Category Date Time Status C-REACTIVE PROTEIN [CHEM] Stat Lab 09/19/16 12:45 Ordered CBC WITH AUTO DIFF [HEME] Stat Lab 09/19/16 12:45 Ordered COMPREHENSIVE METABOLIC PN,CMP [CHEM] Stat Lab 09/19/16 12:45 Ordered DRUG SCREEN, URINE [URCHEM] Stat Lab 09/19/16 12:45 Uncollected ETHANOL BLOOD MEDICAL [CHEM] Stat Lab 09/19/16 12:45 Ordered UA W/MICROSCOPIC [URIN] Stat Lab 09/19/16 12:45 Uncollected - Re-Assessments/Exams Free Text/Narrative Re-Assessment/Exam: Will obtain basic labs including CBC, chem 14, CRP, UA, urine drug tox, serum EtOH. Patient's symptoms are consistent with previous ED visits. Over the past month he's been seen 9 times for this discomfort. CT the abdomen and pelvis was obtained revealing small 2 mm nonobstructing stone in the left kidney. Lab work obtained essentially has been normal with only elevated alcohol levels. He denies alcohol or recreational drug use as of today. Do not smell of any alcohol on him. He's taken ibuprofen and Tylenol along with Zofran with minimal relief of pain and nausea. 09/19/16 13:00 per nursing staff patient has left the ER. He left without signing the AMA form. Departure - Departure Time of Disposition: 13:01 Disposition: Eloped 07 Condition: Good Clinical Impression: Left flank pain - Discharge Information Referrals: PCP,Not In Area [Primary Care Provider] - Forms: ED Department Discharge - My Orders Last 24 Hours: My Active Orders 09/19/16 12:45 C-REACTIVE PROTEIN [CHEM] Stat CBC WITH AUTO DIFF [HEME] Stat COMPREHENSIVE METABOLIC PN,CMP [CHEM] Stat DRUG SCREEN, URINE [URCHEM] Stat ETHANOL BLOOD MEDICAL [CHEM] Stat UA W/MICROSCOPIC [URIN] Stat - Assessment/Plan Last 24 Hours: My Active Orders 09/19/16 12:45 C-REACTIVE PROTEIN [CHEM] Stat CBC WITH AUTO DIFF [HEME] Stat COMPREHENSIVE METABOLIC PN,CMP [CHEM] Stat DRUG SCREEN, URINE [URCHEM] Stat ETHANOL BLOOD MEDICAL [CHEM] Stat UA W/MICROSCOPIC [URIN] Stat
== END 2016-09-19 13:02 | disposition left against medical advice (07) ==
LOC: JD.ED 12:05
DX: R10.9 Unspecified abdominal pain (principal); F17.210 Nicotine dependence, cigarettes, uncomplicated; Z87.442 Personal history of urinary calculi; Z90.49 Acquired absence of other specified parts of digestive tract; Z98.890 Other specified postprocedural states; Z88.0 Allergy status to penicillin; Z88.1 Allergy status to other antibiotic agents
CPT/HCPCS: 99282; 99284

== ENCOUNTER 2016-09-20 07:17 | Emergency (ER) | payer SELFPAY ==
[2016-09-20 07:25] VITALS: BP 126/84
[2016-09-20] MEDS ORDERED: Prochlorperazine 10 MG/2 ML SDV IVPUSH ONE (07:58)
[2016-09-20] MEDS ORDERED: Sodium Chloride 0.9% 1,000 ML IV ONE (07:58)
[2016-09-20] MEDS ORDERED: diphenhydrAMINE 50 MG/ML SDV IVPUSH ONE (07:58)
--- NOTE | 2016-09-20 08:08 | EDM.PDOC ---
ED HPI GENERAL MEDICAL PROBLEM - General Chief Complaint: Flank Pain Stated Complaint: [facility] Time Seen by Provider: 09/20/16 07:20 Source of Information: Reports: Patient, Old Records, RN Notes Reviewed History Limitations: Reports: No Limitations - History of Present Illness INITIAL COMMENTS - FREE TEXT/NARRATIVE: The patient was brought by EMS with a complaint of vomiting this morning. He states that it has been recurring since 09/06/2016. He states that he took 2 tablets of Zofran around 04:00, but that they did not help. The patient complains of left flank pain, radiating down his anterior left thigh with a sensation of either fire or cold water. This pain is made worse if he is standing up straight, made better with flexion. Review of the medical records finds that this is the patient's 13th visit to the ED for similar complaints, and his 11th visit over the past month. I saw the patient in this ED on 09/14/2016 with a complaint of chest pain. At that time , his alcohol level is substantially elevated at 0.32. CBC, CMP, troponin, BNP, D-dimer, coags, and ECG, and a chest X-Ray were all unremarkable. He did not provide a urine sample. He was referred to [facility]. Since that visit, the patient returned to the ED later that same day with a complaint of left flank pain. His alcohol level was 0.12. He was not given any opioids. He then returned the following day, 09/15/2016, with a complaint of left flank pain. His alcohol level was 0. He was given 1 mg IV Dilaudid, but no prescriptions for opioids. He returned twice on 09/16/2016, again with a complaint of left flank pain. His alcohol level was 0.14 on the first visit. He was not given any opioids, and he eloped. On his second visit that day, he did not allow any tests to be obtained, and then eloped. He returned yesterday, 09/19, again with a complaint of left flank pain. Again he did not allow any tests, then eloped. A CT of the abdomen and pelvis without contrast was performed on his 09/15/2016 visit, and compared to a prior CT of the abdomen and pelvis without contrast performed 09/06/2016. Both CT scans demonstrated a 2 mm nonobstructing stone in the left kidney, but no evidence of ureterolithiasis. 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 The remainder of the CT scan was normal. Both EMS and his nurse today informed me that the patient has been dry heaving, but no emesis has been seen. He apparently stopped dry heaving when he received a phone call. He dry heaved once during my evaluation today. When asked about his drinking, he states that he took 2 shots last night, but has not had anything to drink since. He states that it is rare that he drinks more than 2 shots, but then cannot explain his high alcohol levels on numerous visits to this ED. The patient states that he has not yet followed up from any of the ED visits, but states that he has an appointment with a doctor, whose name he cannot recall , but who he believes is a general practitioner, in [place], tomorr, 2016. He states that we referred him to that doctor, however, that is not possible. I have reviewed every single of the patient's ED charts, and while the patient has been referred to the [facility] and [facility] , there have been no referrals to any physician in [place]. Treatments WOLF HUNTER: Reports: Acetaminophen, Other (see below) Other Treatments WOLF HUNTER: ibuprofen Left Flank Pain Score (Numeric/FACES): 9 - Related Data Allergies Allergy/AdvReac Type Severity Reaction Status Date / Time azithromycin [From Zithromax] Allergy Airway Verified 09/20/16 07:20 Tightness cephalexin [From Keflex] Allergy Airway Verified 09/20/16 07:20 Tightness Penicillins Allergy Anaphylactic Verified 09/20/16 07:20 Shock Home Meds: Home Meds Acetaminophen [Acetaminophen Extra Strength] 1,000 mg PO Q6H PRN 09/19/16 [ History] Ibuprofen 800 mg PO Q6H PRN 09/19/16 [History] Past Medical History Genitourinary History: Reports: Renal Calculus Musculoskeletal History: Reports: Back Pain, Chronic Psychiatric History: Reports: Addiction (alcohol) - Infectious Disease History Infectious Disease History: Reports: Chicken Pox - Past Surgical History GI Surgical History: Reports: Appendectomy Male Surgical History: Reports: Ureteral Stent (right) Neurological Surgical History: Reports: Lumbar Spine (around 2014), Other (See Below) (Spinal stimulator, around 2014) Social & Family History - Family History Family Medical History: Noncontributory - Tobacco Use Smoking Status *Q: Current Every Day Smoker Years of Tobacco use: 25 Packs/Tins Daily: 1.5 - Caffeine Use Caffeine Use: Reports: Coffee, Tea Other Caffeine Use: unknown - Alcohol Use Alcohol Use History: Yes Alcohol Use Frequency: Daily - Recreational Drug Use Recreational Drug Use: No Other Recreational Drug Type: patient denies drug use - Living Situation & Occupation Living situation: Reports: , with Significant Other (Fiance), with Family (3 kids) Occupation: Employed ([employer]) ED ROS GENERAL - Review of Systems Review Of Systems: See Below Constitutional: Reports: No Symptoms HEENT: Reports: No Symptoms Respiratory: Reports: No Symptoms Cardiovascular: Reports: No Symptoms Endocrine: Reports: No Symptoms GI/Abdominal: Reports: Nausea, Vomiting (dry heaves) : Reports: No Symptoms Musculoskeletal: Reports: Back Pain Skin: Reports: No Symptoms Neurological: Reports: Dizziness Psychiatric: Reports: No Symptoms Hematologic/Lymphatic: Reports: No Symptoms Immunologic: Reports: No Symptoms ED EXAM, GENERAL - Physical Exam Exam: See Below Exam Limited By: No Limitations General Appearance: Alert, WD/WN, No Apparent Distress Eye Exam: Bilateral Eye: Normal Inspection Ears: Normal External Exam, Hearing Grossly Normal Nose: Normal Inspection, No Blood Throat/Mouth: Normal Inspection, Normal Lips, Normal Voice, No Airway Compromise Head: Atraumatic, Normocephalic Neck: Normal Inspection, Full Range of Motion Respiratory/Chest: No Respiratory Distress, Lungs Clear, Normal Breath Sounds, No Accessory Muscle Use Cardiovascular: Normal Peripheral Pulses, Regular Rate, Rhythm, No Gallop, No JVD, No Murmur, No Rub Peripheral Pulses: 4+: Radial (L), Radial (R) GI/Abdominal: Normal Bowel Sounds, Soft, Non-Tender, No Organomegaly, No Distention, No Abnormal Bruit, No Mass Back Exam: Normal Inspection, Full Range of Motion, CVA Tenderness (L), Paraspinal Tenderness (left only), Other (Well-healed surgical scar over mid- lumbar spine). No: CVA Tenderness (R), Vertebral Tenderness Extremities: Normal Inspection, Normal Range of Motion, No Pedal Edema, Normal Capillary Refill Neurological: Alert, Oriented, Normal Cognition, No Motor/Sensory Deficits Psychiatric: Flat Affect Skin Exam: Warm, Dry, Intact, Normal Color, No Rash Lymphatic: No Adenopathy Course - Vital Signs Last Recorded V/S: Last Vital Signs Temp 36.9 C 09/20/16 11:50 Pulse 90 09/20/16 11:50 Resp 18 09/20/16 11:50 BP 126/84 09/20/16 07:21 Pulse Ox 98 09/20/16 11:50 Orthostatic Blood Pressure [ 112/81 Standing] Orthostatic Blood Pressure [ 107/82 Sitting] Orthostatic Blood Pressure [ 113/75 Supine] - Orders/Labs/Meds Orders: Active Orders 24 hr Category Date Time Status Orthostatic Vital Signs [RC] STAT Care 09/20/16 07:56 Active CULTURE URINE [RM] Stat Lab 09/20/16 10:24 Received Labs: Laboratory Tests 09/20/16 09/20/16 09/20/16 Range/Units 08:10 08:10 08:10 WBC 6.03 (4.23-9.07) K/mm3 RBC 5.41 (4.63-6.08) M/mm3 Hgb 16.3 (13.7-17.5) gm/L Hct 46.8 (40.1-51.0) % MCV 86.5 (79.0-92.2) fl MCH 30.1 (25.7-32.2) pg MCHC 34.8 (32.2-35.5) g/dl RDW Std Deviation 46.5 H (35.1-43.9) fL Plt Count 179 (163-337) K/mm3 MPV 9.2 L (9.4-12.3) fl Neutrophils % (Manual) 49 (40-60) % Band Neutrophils % 0 (0-10) % Lymphocytes % (Manual) 42 H (20-40) % Atypical Lymphs % 0 % Monocytes % (Manual) 7 (2-10) % Eosinophils % (Manual) 2 (0.8-7.0) % Basophils % (Manual) 0 L (0.2-1.2) Platelet Estimate Adequate RBC Morph Comment Normal Sodium 142 (136-145) mEq/L Potassium 3.4 L (3.5-5.1) mEq/L Chloride 106 (98-107) mEq/L Carbon Dioxide 27 (21-32) mEq/L Anion Gap 12.4 (5-15) BUN 11 (7-18) mg/dL Creatinine 0.8 (0.7-1.3) mg/dL Est Cr Clr Drug Dosing TNP Estimated GFR (MDRD) > 60 (>60) mL/min BUN/Creatinine Ratio 13.8 L (14-18) Glucose 105 (74-106) mg/dL Calcium 8.8 (8.5-10.1) mg/dL Total Bilirubin 0.3 (0.2-1.0) mg/dL AST 25 (15-37) U/L ALT 38 (16-63) U/L Alkaline Phosphatase 123 H (46-116) U/L Total Protein 6.5 (6.4-8.2) g/dl Albumin 3.6 (3.4-5.0) g/dl Globulin 2.9 gm/dL Albumin/Globulin Ratio 1.2 (1-2) Urine Color (Yellow) Urine Appearance (Clear) Urine pH (5.0-8.0) Ur Specific [place] (1.005-1.030) Urine Protein (Negative) Urine Glucose (UA) (Negative) Urine Ketones (Negative) Urine Occult Blood (Negative) Urine Nitrite (Negative) Urine Bilirubin (Negative) Urine Urobilinogen (0.2-1.0) Ur Leukocyte Esterase (Negative) Urine RBC (0-5) /hpf Urine WBC (0-5) /hpf Ur Epithelial Cells (0-5) /hpf Amorphous Sediment (NOT SEEN) /hpf Urine Bacteria (FEW) /hpf Urine Mucus (FEW) /hpf Salicylates 3.6 (2.8-20) mg/dL Urine Opiates Screen (NEGATIVE) Ur Buprenorphine Scrn (NEGATIVE) Ur Oxycodone Screen (NEGATIVE) Urine Methadone Screen (NEGATIVE) Ur Propoxyphene Screen (NEGATIVE) Acetaminophen 0 L (10-30) ug/mL Ur Barbiturates Screen (NEGATIVE) Ur Tricyclics Screen (NEGATIVE) Ur Phencyclidine Scrn (NEGATIVE) Ur Amphetamine Screen (NEGATIVE) U Methamphetamines Scrn (NEGATIVE) U Benzodiazepines Scrn (NEGATIVE) U Cocaine Metab Screen (NEGATIVE) U Marijuana (THC) Screen (NEGATIVE) Ethyl Alcohol 0.12 (0.00) gm% 09/20/16 09/20/16 Range/Units 10:24 10:24 WBC (4.23-9.07) K/mm3 RBC (4.63-6.08) M/mm3 Hgb (13.7-17.5) gm/L Hct (40.1-51.0) % MCV (79.0-92.2) fl MCH (25.7-32.2) pg MCHC (32.2-35.5) g/dl RDW Std Deviation (35.1-43.9) fL Plt Count (163-337) K/mm3 MPV (9.4-12.3) fl Neutrophils % (Manual) (40-60) % Band Neutrophils % (0-10) % Lymphocytes % (Manual) (20-40) % Atypical Lymphs % % Monocytes % (Manual) (2-10) % Eosinophils % (Manual) (0.8-7.0) % Basophils % (Manual) (0.2-1.2) Platelet Estimate RBC Morph Comment Sodium (136-145) mEq/L Potassium (3.5-5.1) mEq/L Chloride (98-107) mEq/L Carbon Dioxide (21-32) mEq/L Anion Gap (5-15) BUN (7-18) mg/dL Creatinine (0.7-1.3) mg/dL Est Cr Clr Drug Dosing Estimated GFR (MDRD) (>60) mL/min BUN/Creatinine Ratio (14-18) Glucose (74-106) mg/dL Calcium (8.5-10.1) mg/dL Total Bilirubin (0.2-1.0) mg/dL AST (15-37) U/L ALT (16-63) U/L Alkaline Phosphatase (46-116) U/L Total Protein (6.4-8.2) g/dl Albumin (3.4-5.0) g/dl Globulin gm/dL Albumin/Globulin Ratio (1-2) Urine Color Yellow (Yellow) Urine Appearance Slt cloudy H (Clear) Urine pH 6.5 (5.0-8.0) Ur Specific [place] 1.020 (1.005-1.030) Urine Protein Negative (Negative) Urine Glucose (UA) Negative (Negative) Urine Ketones Negative (Negative) Urine Occult Blood Trace-intact H (Negative) Urine Nitrite Negative (Negative) Urine Bilirubin Negative (Negative) Urine Urobilinogen 1.0 (0.2-1.0) Ur Leukocyte Esterase Negative (Negative) Urine RBC 5-10 H (0-5) /hpf Urine WBC 0-5 (0-5) /hpf Ur Epithelial Cells 5-10 H (0-5) /hpf Amorphous Sediment Moderate H (NOT SEEN) /hpf Urine Bacteria Few (FEW) /hpf Urine Mucus Moderate H (FEW) /hpf Salicylates (2.8-20) mg/dL Urine Opiates Screen Negative (NEGATIVE) Ur Buprenorphine Scrn Negative (NEGATIVE) Ur Oxycodone Screen Negative (NEGATIVE) Urine Methadone Screen Negative (NEGATIVE) Ur Propoxyphene Screen Negative (NEGATIVE) Acetaminophen (10-30) ug/mL Ur Barbiturates Screen Negative (NEGATIVE) Ur Tricyclics Screen Negative (NEGATIVE) Ur Phencyclidine Scrn Negative (NEGATIVE) Ur Amphetamine Screen Negative (NEGATIVE) U Methamphetamines Scrn Negative (NEGATIVE) U Benzodiazepines Scrn Negative (NEGATIVE) U Cocaine Metab Screen Negative (NEGATIVE) U Marijuana (THC) Screen Negative (NEGATIVE) Ethyl Alcohol (0.00) gm% Meds: Medications Discontinued Medications Generic Name Dose Route Start Last Admin Trade Name Freq PRN Reason Stop Dose Admin Diphenhydramine HCl 50 mg 09/20/16 07:58 09/20/16 08:29 Benadryl IVPUSH 09/20/16 07:59 50 mg ONETIME ONE Administration Sodium Chloride 1,000 mls @ 999 mls/hr 09/20/16 07:58 09/20/16 08:28 Normal Saline IV 09/20/16 08:58 999 mls/hr ONETIME ONE Administration Prochlorperazine Edisylate 5 mg 09/20/16 07:58 09/20/16 08:32 Compazine IVPUSH 09/20/16 07:59 5 mg ONETIME ONE Administration - Re-Assessments/Exams Free Text/Narrative Re-Assessment/Exam: 09/20/16 09:19 The patient is not orthostatic. His alcohol level has returned elevated at 0.12. He has not yet provided a urine sample. 09/20/16 11:22 The patient's urinalysis is consistent with contamination. I ordered a urine culture, but I am not going to treat for a UTI at this point. 09/20/16 11:38 Test results discussed with the patient. As prior CT scans of the abdomen and pelvis have demonstrated spondylolytic defects at L5-S1, the patient's left back pain could be legitimate. I will refer him to a neurosurgeon for further evaluation. I suspect that the patient's recurrent nausea and dry heaves is due to gastritis as a result of his excessive drinking, and I recommended that the patient stop drinking, with the help of [facility]. The patient has Zofran at home, and while he claims that it does not work well for him, it has the best side effect profile, therefore I am reluctant to prescribe him a different antiemetic. I will refer the patient to Dr. Yi for possible EGD. Departure - Departure Time of Disposition: 11:42 Disposition: Home, Self-Care 01 Condition: Good Clinical Impression: Nausea, Alcohol intoxication, Alcohol abuse, Left lumbar radiculopathy - Discharge Information Referrals: PCP,None [Primary Care Provider] - Robi Bacon MD [Consulting Physician] - Sheri Rodriguez [Physician] - Bruce Yi MD [Physician] - Forms: ED Department Discharge Additional Instructions: You were seen in the emergency room for recurrent nausea and vomiting, along with chronic left flank pain, radiating down her left thigh. Workup in the ER included blood work, a urinalysis, a urine drug screen, and positional blood pressure checks. Your workup was remarkable for an alcohol level elevated at 0.12. For reference , 0.08 is the upper legal limit for driving. The remainder of your workup was unremarkable. A sample of your urine was sent for culture. We suspect that your nausea and vomiting is caused by gastritis due to your excessive drinking. We STRONGLY recommend that you stop drinking, and follow-up at [facility] for help to remain sober. [address] [place] [phone] Follow-up with the surgeon Dr. Bruce Yi for further evaluation of your stomach, including a possible EGD. Follow-up with Dr. Rodriguez in the clinic. Follow-up with the Neurosurgeon Dr. Bacon at the next available appointment, for further evaluation of your back pain. If any other problems, please do not hesitate to return to the ER. - My Orders Last 24 Hours: My Active Orders 09/20/16 07:56 Orthostatic Vital Signs [RC] STAT 09/20/16 10:24 CULTURE URINE [RM] Stat - Assessment/Plan Last 24 Hours: My Active Orders 09/20/16 07:56 Orthostatic Vital Signs [RC] STAT 09/20/16 10:24 CULTURE URINE [RM] Stat
[2016-09-20 08:38] LABS: ACETAMINOPHEN 0 ug/mL (10-30)
== END 2016-09-20 11:50 | disposition home or self-care (01) ==
LOC: JD.ED 07:17
DX: F10.129 Alcohol abuse with intoxication, unspecified (principal); M54.16 Radiculopathy, lumbar region; Y90.0 Blood alcohol level of less than 20 mg/100 ml; F17.210 Nicotine dependence, cigarettes, uncomplicated; Z90.49 Acquired absence of other specified parts of digestive tract; Z98.890 Other specified postprocedural states; Z96.0 Presence of urogenital implants; Z88.0 Allergy status to penicillin; Z88.1 Allergy status to other antibiotic agents
CPT/HCPCS: 36415; 80053; 80306; 81001; 85025; 87086; 96361; 96374; 96375; 99285; G0480; J0780; J1200; J7040; 99284

== ENCOUNTER 2016-09-24 04:27 | Emergency (ER) | payer SELFPAY ==
[2016-09-24 04:31] VITALS: BP 121/76
[2016-09-24] MEDS ORDERED: Metoclopramide 10 MG/2 ML SDV IVPUSH ONE (04:52)
[2016-09-24] MEDS ORDERED: diphenhydrAMINE 50 MG/ML SDV IVPUSH ONE (04:52)
[2016-09-24] MEDS ORDERED: HYDROmorphone 1 MG/ML Syringe IVPUSH ONE (04:53)
--- NOTE | 2016-09-24 04:55 | EDM.PDOC ---
ED HPI GENERAL MEDICAL PROBLEM - General Chief Complaint: Flank Pain Stated Complaint: [facility] Time Seen by Provider: 09/24/16 04:52 Source of Information: Reports: Patient History Limitations: Reports: No Limitations - History of Present Illness INITIAL COMMENTS - FREE TEXT/NARRATIVE: 40-year-old male presents to the ED per ambulance with complaints of severe left flank pain radiating into the left hemiabdomen. Associated intractable nausea and vomiting of bilious material. Denies any hematemesis. Bowel function otherwise is normal. He is known to have a history of renal lithiasis. He's been seen multiple times in the last 30 days through our ED for similar type illness. He does have chronic low back pain and spondylolisthesis at L4-L5. The scan done September 15 identified a 2 mm stone within the left renal parenchyma with no signs of any obstruction of the ureter. Patient also has a chronic alcohol abuse problem but has refused to seek treatment. It is suspect that his vomiting is secondary to alcohol-induced gastritis hepatitis and perhaps inflammation of the pancreas. At present he is complaining of left upper quadrant and flank pain. I have read several of Dr. Siu's previous notes on this fellow. He seems to be noncompliant and often leaves the department whenever he wishes. I.e. he eloped. Concern evident for drug-seeking behavior however I suspect chronic alcoholism is his major problem. Today I found him kneeling down near the sink in his room as this is most comfortable position for him. He does not make eye contact. He smells strongly of alcohol. His speech is minimally dysarthric however. Currently rates his pain as a 9 out of 10 left flank and upper abdomen. Reports she's been using ibuprofen for pain relief but can't keep it down. Of note patient also has chronic low back pain and actually has an intrathecal neurotransmitter placed. Onset: Other (Has been having intermittent similar type pain for the last month. Reports previous renal lithiasis requiring lithotripsy and stenting. This too was on the left side) Onset Date: 09/23/16 Duration: Hour(s):, Getting Worse Location: Reports: Back (Left flank left upper quadrant abdominal pain with intractable nausea and vomiting.) Quality: Reports: Ache, Pressure, Stabbing Severity: Severe Improves with: Reports: None (Current pain is 9 out of 10.) Worsens with: Reports: None Context: Denies: Activity, Exercise, Lifting, Sick Contact, Trauma, Other Associated Symptoms: Reports: Nausea/Vomiting (Intractable nausea and vomiting of bilious material denies any hematemesis.), Weakness Treatments ENT NURSE: Reports: NSAIDS Left Flank Pain Score (Numeric/FACES): 9 - Related Data Allergies Allergy/AdvReac Type Severity Reaction Status Date / Time azithromycin [From Zithromax] Allergy Airway Verified 09/20/16 07:20 Tightness cephalexin [From Keflex] Allergy Airway Verified 09/20/16 07:20 Tightness Penicillins Allergy Anaphylactic Verified 09/20/16 07:20 Shock Home Meds: Home Meds Acetaminophen [Acetaminophen Extra Strength] 1,000 mg PO Q6H PRN 09/19/16 [ History] Ibuprofen 800 mg PO Q6H PRN 09/19/16 [History] Metoclopramide [Reglan] 10 mg PO Q8H #21 tablet 09/24/16 [Rx] Past Medical History - Past Health History Medical/Surgical History: Denies Medical/Surgical History Gastrointestinal History: Reports: Other (See Below) Other Gastrointestinal History: states "I had an ulcer one time." Genitourinary History: Reports: Renal Calculus Musculoskeletal History: Reports: Back Pain, Chronic Other Musculoskeletal History: pain to right foot Psychiatric History: Reports: Addiction Other Psychiatric History: alcohol - Infectious Disease History Infectious Disease History: Reports: Chicken Pox - Past Surgical History GI Surgical History: Reports: Appendectomy Male Surgical History: Reports: Ureteral Stent Neurological Surgical History: Reports: Lumbar Spine, Other (See Below) Social & Family History - Family History Family Medical History: Noncontributory - Tobacco Use Smoking Status *Q: Current Every Day Smoker Years of Tobacco use: 25 Packs/Tins Daily: 1.5 - Caffeine Use Caffeine Use: Reports: Coffee, Tea Other Caffeine Use: unknown - Recreational Drug Use Recreational Drug Use: No Other Recreational Drug Type: patient denies drug use - Living Situation & Occupation Living situation: Reports: , with Significant Other (Fiance), with Family (3 kids) Occupation: Employed ([employer] for [employer]) ED ROS GENERAL - Review of Systems Review Of Systems: See Below Constitutional: Reports: Malaise, Fatigue, Decreased Appetite. Denies: Fever, Chills HEENT: Reports: No Symptoms Respiratory: Reports: No Symptoms Cardiovascular: Reports: No Symptoms Endocrine: Reports: No Symptoms GI/Abdominal: Reports: Abdominal Pain, Nausea, Vomiting (Estimates he's vomited 9 times in the last 4 hours.). Denies: Constipation (See history of present illness), Diarrhea, Decreased Appetite, Difficulty Swallowing, Distension : Reports: Flank Pain (Left flank pain radiating around the left upper abdomen. No pain in the groin or down to the testicle.) Musculoskeletal: Reports: Back Pain (Left flank pain has chronic low back pain due to spondylolisthesis of L4 on L5.) Skin: Reports: No Symptoms Neurological: Reports: Dizziness, Weakness Psychiatric: Reports: No Symptoms Hematologic/Lymphatic: Reports: No Symptoms Immunologic: Reports: No Symptoms ED EXAM, RENAL/ - Physical Exam Exam: See Below Exam Limited By: No Limitations General Appearance: Alert, Moderate Distress, Other (Patient was found kneeling in front of the sink in his examination room. He states there is no position that is comfortable. He prefers to be closer to the sink if he vomits. Patient has a ruborous complexion and smells strongly of alcohol.) Eye Exam: Bilateral Eye: Conjunctival Injection (Mild to moderate bilaterally.) Head: Atraumatic, Normocephalic Neck: Normal Inspection, Supple, Non-Tender, Full Range of Motion. No: Lymphadenopathy (L), Lymphadenopathy (R) Respiratory/Chest: Lungs Clear, Chest Non-Tender, Respiratory Distress (Mild tachypnea at rest. I get 20/m.) Cardiovascular: Normal Peripheral Pulses, Regular Rate, Rhythm, No Murmur, Tachycardia (Heart rate 106 at rest.) GI/Abdominal: No Mass, Tender (Left upper quadrant of the abdomen), Abnormal Bowel Sounds (Hypoactive bowel sounds.). No: Guarding ( mildly tender without guarding or rebound.), Rebound Back Exam: CVA Tenderness (L) (Mild) Extremities: Normal Inspection, Normal Range of Motion, Non-Tender, No Pedal Edema Neurological: Alert, Oriented, CN II-XII Intact, Normal Cognition Psychiatric: Normal Affect Skin Exam: Warm, Dry, Intact, Normal Color, No Rash Course - Vital Signs Last Recorded V/S: Last Vital Signs Temp 36.9 C 09/24/16 04:29 Pulse 96 09/24/16 04:29 Resp 16 09/24/16 04:29 BP 121/76 09/24/16 04:29 Pulse Ox 97 09/24/16 04:29 - Orders/Labs/Meds Orders: Active Orders 24 hr Category Date Time Status Abdomen Pelvis wo Cont [CT] Stat Exams 09/24/16 04:54 Taken URINALYSIS W/MICROSCOPIC [UA W/MICROSCOPIC] [URIN] Stat Lab 09/24/16 04:53 Uncollected Dextrose 5%-0.9% NaCl [Dextrose 5%-Normal Saline] 1,000 Med 09/24/16 05:00 Active ml IV ASDIRECTED Medication Orders Dextrose/Sodium Chloride (Dextrose 5%-Normal Saline) 1,000 mls @ 500 mls/hr IV ASDIRECTED JULISA Last Admin: 09/24/16 05:08 Dose: 500 mls/hr Labs: Laboratory Tests 09/24/16 09/24/16 09/24/16 Range/Units 05:00 05:00 05:00 WBC 5.41 (4.23-9.07) K/mm3 RBC 5.39 (4.63-6.08) M/mm3 Hgb 16.3 (13.7-17.5) gm/L Hct 47.5 (40.1-51.0) % MCV 88.1 (79.0-92.2) fl MCH 30.2 (25.7-32.2) pg MCHC 34.3 (32.2-35.5) g/dl RDW Std Deviation 48.4 H (35.1-43.9) fL Plt Count 183 (163-337) K/mm3 MPV 9.0 L (9.4-12.3) fl Neutrophils % (Manual) 52 (40-60) % Band Neutrophils % 1 (0-10) % Lymphocytes % (Manual) 39 (20-40) % Atypical Lymphs % 4 % Monocytes % (Manual) 4 (2-10) % Eosinophils % (Manual) 0 L (0.8-7.0) % Basophils % (Manual) 0 L (0.2-1.2) Platelet Estimate Adequate Plt Morphology Comment Normal Poikilocytosis 1+ slight Anisocytosis 1+ slight Microcytosis 1+ slight Macrocytosis 1+ slight Tear Drop Cells 1+ slight RBC Morph Comment Abnormal PT 10.1 (8.0-13.0) SECONDS INR 0.93 Sodium 144 (136-145) mEq/L Potassium 3.7 (3.5-5.1) mEq/L Chloride 109 H (98-107) mEq/L Carbon Dioxide 25 (21-32) mEq/L Anion Gap 13.7 (5-15) BUN 12 (7-18) mg/dL Creatinine 0.9 (0.7-1.3) mg/dL Est Cr Clr Drug Dosing TNP Estimated GFR (MDRD) > 60 (>60) mL/min BUN/Creatinine Ratio 13.3 L (14-18) Glucose 106 (74-106) mg/dL Calcium 8.2 L (8.5-10.1) mg/dL Total Bilirubin 0.3 (0.2-1.0) mg/dL AST 18 (15-37) U/L ALT 37 (16-63) U/L Alkaline Phosphatase 121 H (46-116) U/L Total Protein 6.7 (6.4-8.2) g/dl Albumin 3.7 (3.4-5.0) g/dl Globulin 3.0 gm/dL Albumin/Globulin Ratio 1.2 (1-2) Lipase 153 (73-393) U/L Ethyl Alcohol 0.16 (0.00) gm% Meds: Medications Generic Name Dose Route Start Last Admin Trade Name Freq PRN Reason Stop Dose Admin Dextrose/Sodium Chloride 1,000 mls @ 500 mls/hr 09/24/16 05:00 09/24/16 05:08 Dextrose 5%-Normal Saline IV 500 mls/hr ASDIRECTED JULISA Administration Discontinued Medications Generic Name Dose Route Start Last Admin Trade Name Freq PRN Reason Stop Dose Admin Diphenhydramine HCl 25 mg 09/24/16 04:52 09/24/16 05:04 Benadryl IVPUSH 09/24/16 04:53 25 mg ONETIME ONE Administration Hydromorphone HCl 1 mg 09/24/16 04:53 09/24/16 05:03 Dilaudid IVPUSH 09/24/16 04:54 1 mg ONETIME ONE Administration Metoclopramide HCl 10 mg 09/24/16 04:52 09/24/16 05:04 Reglan IVPUSH 09/24/16 04:53 10 mg ONETIME ONE Administration - Radiology Interpretation Free Text/Narrative:: 40-year-old male presents once again to the ED per ambulance. He is complaining of severe left flank pain with associated intractable nausea and vomiting of bilious material. He has not been able to sleep all night. He is presented to the ED on many occasions in the last month with similar type problems. He indicates he had previous lithotripsy for left-sided renal lithiasis with stenting. Patient is a chronic alcoholic with large amount of alcohol ingestion per day. He has been referred to [facility] but has never attended as at this time he expresses no desire to stop drinking alcohol. He is known to have a 2 mm stone in the left renal parenchyma diagnosed on CT September 15. It is possible stone is dropped down into the left ureter causing his current pain syndrome. Likely is alcohol-induced gastritis possible pancreatitis causing intractable nausea and vomiting and perhaps the left upper quadrant abdominal pain. Concern expressed by Dr. eDxter is that he may be narcotic seeking. He seems to have a chronic problem with alcohol and drug abuse. Last 2 urinalyses for drugs however did not reveal any street drugs within. Plan Will repeat labs today including a blood alcohol and a serum lipase level. Will give him IV fluids D5 normal saline at open. Given Dilaudid 1 mg IV with Reglan 10 mg IV for acute pain relief. She of the abdomen will be repeated with contrast per renal protocol. - Re-Assessments/Exams Free Text/Narrative Re-Assessment/Exam: 09/24/16 06:00 CT of the abdomen repeated reveals 2 mm stone within the lower pole of the left kidney without any sign of ureteric obstruction bilaterally. No stones are evident in the right kidney. Gallbladder and liver appear to be within normal limits. Pancreas is also normal in appearance. Adrenal glands are normal as well. There is a fair amount of stool throughout the colon but no signs of bowel obstruction. There is a intrathecal implant traveling up to the T11 vertebra. There is a fairly good chance that his back pain and flank pain is related to the chronic back pain issues. Labs are pending. 09/24/16 06:43 labs are now completed. Total white count was 5.41 with 52% neutrophils and 1% band cells. Hemoglobin was 16.3 hematocrit of 47.5 platelets 183,000. Coags are normal. Sodium 144 potassium 3.7 chloride 109 AST was 18 ALT of 37 bilirubin 0.3. No evidence of pancreatitis with a serum lipase of 153. It is therefore likely that his left flank pain is actually still coming from his back pain. His neurotransmitter enters his spine at the L1-L2 level and travels up to the T12 level on CT. It is likely that his chronic left flank pain is related to his back. He has been sleeping in the department since receiving medications and has had no further vomiting. He will be discharged to home when he arouses. I will write a prescription for Reglan 10 mg to be taken every 8 hours when necessary for nausea relief. 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 This is been a recurrent and chronic problem for you with numerous visits to the emergency room in the last month for the same type of problem. Reported intractable nausea and vomiting brought to the emergency room tonight. You identified this to be secondary to the pain severity. You're treated in the emergency room with IV fluids D5 normal saline to provide rehydration. You were given Dilaudid 1 mg IV and Reglan 10 mg IV for pain and nausea relief. Repeat CT of the abdomen was performed without any contrast and it identifies a 2 mm stone within the lower pole of the left kidney tissue. There is no evidence of a kidney stone causing any pain or obstruction of the ureter or drainage system of the kidney. No other abnormalities were identified on CT of the abdomen other than slightly increased stool throughout the colon compatible with some degree of constipation. It is suspected that you're chronic left flank pain is most likely related to your back pain. Neurostimulator enters the spinal cord at the L1-L2 level of the spine which is in the same nerve dermatome as your left kidney. Ureters no evidence in your blood tests of significant liver inflammation or pancreatitis. Vomiting is likely secondary to persistent and chronic alcohol use with chronic alcohol-induced gastritis. I did write a prescription for Reglan 10 mg that she can take orally every 8 hours if needed for relief of nausea or vomiting. You have indicated that Zofran in the past has not helped much with her vomiting. Suggest to seek out chronic pain management physician in [facility] to help manage her chronic pain syndrome. Of course stopping chronic alcohol abuse a also provide relief of recurrent vomiting. - My Orders Last 24 Hours: My Active Orders 09/24/16 04:53 URINALYSIS W/MICROSCOPIC [UA W/MICROSCOPIC] [URIN] Stat 09/24/16 04:54 Abdomen Pelvis wo Cont [CT] Stat 09/24/16 05:00 Dextrose 5%-0.9% NaCl [Dextrose 5%-Normal Saline] 1,000 ml IV ASDIRECTED - Assessment/Plan Last 24 Hours: My Active Orders 09/24/16 04:53 URINALYSIS W/MICROSCOPIC [UA W/MICROSCOPIC] [URIN] Stat 09/24/16 04:54 Abdomen Pelvis wo Cont [CT] Stat 09/24/16 05:00 Dextrose 5%-0.9% NaCl [Dextrose 5%-Normal Saline] 1,000 ml IV ASDIRECTED
[2016-09-24] MEDS ORDERED: Dextrose 5%-0.9% NaCl 1,000 ML IV SCH (05:00)
--- NOTE | 2016-09-28 08:22 | CT ---
CT abdomen and pelvis Technique: Multiple axial sections were obtained from the top the kidneys inferiorly through the pubic symphysis. Intravenous and oral contrast not utilized. Study has been performed as a ureteral stone protocol. Comparison: Previous CT exam of 09/15/16 is available. Findings: Small 2 mm nonobstructing stone noted within the left kidney. This is stable from previous exam. No abnormal calcifications are seen along the course of the ureters. No ureteral dilatation is seen. No bladder calculi are seen. Visualized lower portions of the liver and spleen are within normal limits. Gallbladder shows no calcified gallstones. Adrenal glands are incompletely seen. Visualized portions of the adrenal glands are unremarkable. Pancreas is within normal limits. Aorta shows no aneurysmal dilatation. Appendix not definitely visualized. No pelvic mass or adenopathy is seen. No free fluid or inflammatory change is seen. 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 Electrostimulating device is seen terminating within the thoracic canal. Impression: 1. Two mm nonobstructing stone within the left kidney which is stable from prior CT exam. No ureteral dilatation or ureteral stone is seen. 2. Other incidental findings as noted above. Nothing acute is identified on noncontrast CT study of the abdomen and pelvis. Diagnostic code #2 Agree with preliminary report issued by [employer] ([employer] preliminary report dictated on 09/24/16, 6:48 AM Central Time)
== END 2016-09-24 06:59 | disposition home or self-care (01) ==
LOC: JD.ED 04:27
DX: K29.20 Alcoholic gastritis without bleeding (principal); F10.120 Alcohol abuse with intoxication, uncomplicated; M54.9 Dorsalgia, unspecified; G89.29 Other chronic pain; F17.210 Nicotine dependence, cigarettes, uncomplicated; Z88.1 Allergy status to other antibiotic agents; Z88.0 Allergy status to penicillin; Z87.442 Personal history of urinary calculi; Z90.49 Acquired absence of other specified parts of digestive tract
CPT/HCPCS: 36415; 74176; 80053; 83690; 85025; 85610; 96361; 96374; 96375; 99285; G0480; J1170; J1200; J2765; J7042; 99283

== ENCOUNTER 2016-09-27 07:25 | Emergency (ER) | payer SELFPAY ==
[2016-09-27 07:37] VITALS: BP 152/95
[2016-09-27] MEDS ORDERED: Metoclopramide 10 MG/2 ML SDV IVPUSH ONE (07:43)
[2016-09-27] MEDS ORDERED: Lactated Ringers 1,000 ML IV ONE (07:43)
--- NOTE | 2016-09-27 07:43 | EDM.PDOC ---
ED HPI GENERAL MEDICAL PROBLEM - General Chief Complaint: Gastrointestinal Problem Stated Complaint: VOMITING/L SIDE PAIN Time Seen by Provider: 09/27/16 07:41 Source of Information: Reports: Patient History Limitations: Reports: No Limitations - History of Present Illness INITIAL COMMENTS - FREE TEXT/NARRATIVE: 40-year-old male once again attends the ED with same complaint of left flank side pain with associated nausea and vomiting. He's been here several times in the last month. He has a chronic alcoholic and we felt he was suffering from chronic gastritis causing him to vomit repeatedly. Patient states he stopped drinking alcohol 2 days ago. Is feeling somewhat agitated particularly restless legs. Patient has a neurotransmitter device in his in his lumbar spine it enters at L1-L2 on the left side and is felt to be causing a lot of his pain in that area. Spelled worked up on 2 occasions to make sure there was no renal stones and none were found. He has a 2 mm stone well embedded in the left inferior pole of the kidney. There is no obstructing stones. Labs have been normal in terms of pancreas. He's been simply treated with IV fluids anti- nauseous and pain medication and settles down. At some point time he is follow- up with her regular physician so that he can get an EGD done to look at his stomach. He denies any hematemesis. Hemoglobin is always been in the 15's. Last visit to the ED was September 24 at which time I had seen him and done a complete investigation including CT of the abdomen which was negative for any other findings. Onset: Sudden (Last p.m. started vomiting again. Emesis is bilious and nothing will stay down.) Onset Date: 09/26/16 Duration: Hour(s):, Constant Location: Reports: Abdomen (Upper abdomen.), Back (Left back flank area.) Quality: Reports: Ache, Pressure, Other (Constant pain.) Severity: Moderate (Rates his pain as 7 or 8 out of 10.) Improves with: Reports: None Worsens with: Reports: Other Context: Reports: Other (Heavy alcohol user and has stopped drinking 2 days ago and therefore his surgery show some signs of alcohol withdrawal.). Denies: Activity (Trying to eat), Exercise, Lifting, Sick Contact, Trauma Associated Symptoms: Reports: Loss of Appetite, Malaise, Nausea/Vomiting, Weakness. Denies: Confusion, Chest Pain, Cough, cough w sputum, Diaphoresis, Fever/Chills, Headaches, Rash, Seizure, Shortness of Breath, Syncope Treatments STOCK RECEIVER: Reports: Other (see below) (Nothing will stay down.) - Related Data Allergies Allergy/AdvReac Type Severity Reaction Status Date / Time azithromycin [From Zithromax] Allergy Airway Verified 09/29/16 07:13 Tightness cephalexin [From Keflex] Allergy Airway Verified 09/29/16 07:13 Tightness Penicillins Allergy Anaphylactic Verified 09/29/16 07:13 Shock Home Meds: Home Meds Acetaminophen [Acetaminophen Extra Strength] 1,000 mg PO Q6H PRN 09/19/16 [ History] Ibuprofen 800 mg PO Q6H PRN 09/19/16 [History] Metoclopramide HCl [Reglan] 10 mg PO Q6H #10 tablet 09/27/16 [Rx] Ondansetron [Zofran ODT] 4 mg PO Q6H PRN #20 tab.dis 09/28/16 [Rx] Acetaminophen/HYDROcodone [[place] 325-5 MG] 1 - 2 tab PO Q6H PRN #15 tablet 09/29 [Rx] Pantoprazole Sodium [Protonix] 40 mg PO Q24H #30 tablet. 09/29/16 [Rx] Sucralfate [Carafate] 1 gm PO QIDACANDBED #28 tablet 09/29/16 [Rx] Past Medical History - Past Health History Medical/Surgical History: Denies Medical/Surgical History Gastrointestinal History: Reports: Other (See Below) Other Gastrointestinal History: states "I had an ulcer one time." Genitourinary History: Reports: Renal Calculus Musculoskeletal History: Reports: Back Pain, Chronic (Has a neurostimulator device implanted and his spinal cord at the L1-L2 level. This placed in [place] about 2 years ago. He felt that it helped initially but is not sure that is helping much anymore.) Other Musculoskeletal History: pain to right foot Psychiatric History: Reports: Addiction Other Psychiatric History: alcohol - Infectious Disease History Infectious Disease History: Reports: Chicken Pox - Past Surgical History GI Surgical History: Reports: Appendectomy Male Surgical History: Reports: Ureteral Stent Neurological Surgical History: Reports: Lumbar Spine Social & Family History - Family History Family Medical History: Noncontributory - Tobacco Use Smoking Status *Q: Current Every Day Smoker Years of Tobacco use: 25 Packs/Tins Daily: 1.5 - Caffeine Use Caffeine Use: Reports: Coffee Other Caffeine Use: unknown - Alcohol Use Days Per Week of Alcohol Use: 7 Number of Drinks Per Day: 3 Total Drinks Per Week: 21 Date of Last Drink: 09/25/16 - Recreational Drug Use Recreational Drug Use: No Other Recreational Drug Type: patient denies drug use - Living Situation & Occupation Living situation: Reports: , with Significant Other (Fiance), with Family (3 kids) Occupation: Employed (F[employer]ing [employer] for [employer]) ED ROS GENERAL - Review of Systems Review Of Systems: See Below Constitutional: Reports: Malaise, Weakness, Fatigue, Decreased Appetite, Weight Loss. Denies: Fever, Chills HEENT: Reports: No Symptoms Respiratory: Reports: No Symptoms Cardiovascular: Reports: No Symptoms Endocrine: Reports: Fatigue GI/Abdominal: Reports: Abdominal Pain, Nausea (See history of present illness), Vomiting. Denies: Hematemesis (recurrent nausea and vomiting without hematemesis.) Musculoskeletal: Reports: Back Pain (Chronic left flank pain and back pain.) Skin: Reports: No Symptoms Neurological: Reports: No Symptoms Psychiatric: Reports: Other Hematologic/Lymphatic: Reports: No Symptoms Immunologic: Reports: No Symptoms ED EXAM, GI/ABD - Physical Exam Exam: See Below Exam Limited By: No Limitations (Breath smells patient is sober this morning for the first time that I've ever seen him sober.) General Appearance: Alert ( Smells strongly of ketones at this time), Mild Distress, Other (Appears volume depleted. Again breath smells strongly of ketones.) Eyes: Bilateral: Normal Appearance (No jaundice.) Throat/Mouth: Normal Inspection, Normal Lips, Normal Oropharynx Head: Atraumatic (tongue is dry and coated.), Normocephalic Neck: Normal Inspection, Supple, Non-Tender, Full Range of Motion. No: Lymphadenopathy (L), Lymphadenopathy (R) Respiratory/Chest: Lungs Clear, Normal Breath Sounds, No Accessory Muscle Use, Respiratory Distress (Mild tachypnea. Resting heart rate 18-19/m) Cardiovascular: Normal Peripheral Pulses, Regular Rate, Rhythm, No Edema, No Gallop, No Murmur, Tachycardia (Resting tachycardia at 108-1 12/m.) GI/Abdominal Exam: Soft, Tender, Abnormal Bowel Sounds (Hypoactive bowel sounds. ). No: Guarding, Rigid (Tenderness epigastrium and left upper quadrant without rebound tenderness or guarding), Rebound Back Exam: Normal Inspection, CVA Tenderness (L) Extremities: Normal Inspection, Normal Range of Motion, Non-Tender, No Pedal Edema, Normal Capillary Refill Neurological: Alert, Oriented, CN II-XII Intact, Normal Cognition, No Motor/ Sensory Deficits Psychiatric: Depressed Mood Skin Exam: Warm, Dry, Intact, Normal Color, No Rash Course - Vital Signs Last Recorded V/S: Last Vital Signs Temp 37.1 C 09/27/16 07:35 Pulse 108 H 09/27/16 07:35 Resp 12 09/27/16 07:35 BP 152/95 H 09/27/16 07:35 Pulse Ox 99 09/27/16 07:35 - Orders/Labs/Meds Labs: Laboratory Tests 09/27/16 09/27/16 09/27/16 Range/Units 07:45 07:45 07:45 WBC 10.23 H (4.23-9.07) K/mm3 RBC 5.81 (4.63-6.08) M/mm3 Hgb 17.6 H (13.7-17.5) gm/L Hct 49.7 (40.1-51.0) % MCV 85.5 (79.0-92.2) fl MCH 30.3 (25.7-32.2) pg MCHC 35.4 (32.2-35.5) g/dl RDW Std Deviation 47.6 H (35.1-43.9) fL Plt Count 211 (163-337) K/mm3 MPV 8.4 L (9.4-12.3) fl Neutrophils % (Manual) 82 H (40-60) % Band Neutrophils % 0 (0-10) % Lymphocytes % (Manual) 14 L (20-40) % Atypical Lymphs % 0 % Monocytes % (Manual) 4 (2-10) % Eosinophils % (Manual) 0 L (0.8-7.0) % Basophils % (Manual) 0 L (0.2-1.2) Platelet Estimate Adequate RBC Morph Comment Normal Sodium 136 (136-145) mEq/L Potassium 4.0 (3.5-5.1) mEq/L Chloride 97 L (98-107) mEq/L Carbon Dioxide 22 (21-32) mEq/L Anion Gap 21.0 H (5-15) BUN 15 (7-18) mg/dL Creatinine 0.9 (0.7-1.3) mg/dL Est Cr Clr Drug Dosing TNP Estimated GFR (MDRD) > 60 (>60) mL/min BUN/Creatinine Ratio 16.7 (14-18) Glucose 122 H (74-106) mg/dL Calcium 8.6 (8.5-10.1) mg/dL Total Bilirubin 0.6 (0.2-1.0) mg/dL AST 31 (15-37) U/L ALT 40 (16-63) U/L Alkaline Phosphatase 143 H (46-116) U/L C-Reactive Protein 0.8 (<1.0) mg/dL Total Protein 7.2 (6.4-8.2) g/dl Albumin 3.8 (3.4-5.0) g/dl Globulin 3.4 gm/dL Albumin/Globulin Ratio 1.1 (1-2) Amylase 568 H* (25-115) U/L Lipase (73-393) U/L Ethyl Alcohol 0.09 (0.00) gm% Ketones 1.7 (0.0-0.3) mM 09/27/16 Range/Units 07:45 WBC (4.23-9.07) K/mm3 RBC (4.63-6.08) M/mm3 Hgb (13.7-17.5) gm/L Hct (40.1-51.0) % MCV (79.0-92.2) fl MCH (25.7-32.2) pg MCHC (32.2-35.5) g/dl RDW Std Deviation (35.1-43.9) fL Plt Count (163-337) K/mm3 MPV (9.4-12.3) fl Neutrophils % (Manual) (40-60) % Band Neutrophils % (0-10) % Lymphocytes % (Manual) (20-40) % Atypical Lymphs % % Monocytes % (Manual) (2-10) % Eosinophils % (Manual) (0.8-7.0) % Basophils % (Manual) (0.2-1.2) Platelet Estimate RBC Morph Comment Sodium (136-145) mEq/L Potassium (3.5-5.1) mEq/L Chloride (98-107) mEq/L Carbon Dioxide (21-32) mEq/L Anion Gap (5-15) BUN (7-18) mg/dL Creatinine (0.7-1.3) mg/dL Est Cr Clr Drug Dosing Estimated GFR (MDRD) (>60) mL/min BUN/Creatinine Ratio (14-18) Glucose (74-106) mg/dL Calcium (8.5-10.1) mg/dL Total Bilirubin (0.2-1.0) mg/dL AST (15-37) U/L ALT (16-63) U/L Alkaline Phosphatase (46-116) U/L C-Reactive Protein (<1.0) mg/dL Total Protein (6.4-8.2) g/dl Albumin (3.4-5.0) g/dl Globulin gm/dL Albumin/Globulin Ratio (1-2) Amylase (25-115) U/L Lipase 123 (73-393) U/L Ethyl Alcohol (0.00) gm% Ketones (0.0-0.3) mM Meds: Medications Discontinued Medications Generic Name Dose Route Start Last Admin Trade Name Freq PRN Reason Stop Dose Admin Diphenhydramine HCl 50 mg 09/27/16 07:44 09/27/16 07:55 Benadryl IVPUSH 09/27/16 07:45 50 mg ONETIME ONE Administration Famotidine 20 mg 09/27/16 07:46 09/27/16 07:57 Pepcid IVPUSH 09/27/16 07:47 20 mg ONETIME ONE Administration Hydromorphone HCl 0.5 mg 09/27/16 08:23 09/27/16 08:30 Dilaudid IVPUSH 09/27/16 08:24 0.5 mg ONETIME ONE Administration Hydromorphone HCl 1 mg 09/27/16 09:54 09/27/16 10:00 Dilaudid IVPUSH 09/27/16 09:55 1 mg ONETIME ONE Administration Hydromorphone HCl 1 mg 09/27/16 11:04 09/27/16 11:13 Dilaudid IVPUSH 09/27/16 11:05 1 mg ONETIME ONE Administration Lactated Ringer's 1,000 mls @ 500 mls/hr 09/27/16 07:43 09/27/16 07:53 Ringers, Lactated IV 09/27/16 09:42 500 mls/hr .BOLUS ONE Administration Dextrose/Sodium Chloride 1,000 mls @ 999 mls/hr 09/27/16 09:45 09/27/16 09:48 Dextrose 5%-Normal Saline IV 999 mls/hr ASDIRECTED JULISA Administration Sodium Chloride 1,000 mls @ 999 mls/hr 09/27/16 11:04 09/27/16 11:12 Normal Saline IV 09/27/16 12:04 999 mls/hr ONETIME ONE Administration Ketorolac Tromethamine 30 mg 09/27/16 07:44 09/27/16 07:56 Toradol IVPUSH 09/27/16 07:45 30 mg ONETIME ONE Administration Lorazepam 1 mg 09/27/16 08:13 09/27/16 08:31 Ativan IVPUSH 09/27/16 08:14 1 mg ONETIME ONE Administration Metoclopramide HCl 10 mg 09/27/16 07:43 09/27/16 07:54 Reglan IVPUSH 09/27/16 07:44 10 mg ONETIME ONE Administration Ondansetron HCl 4 mg 09/27/16 09:53 09/27/16 09:59 Zofran IVPUSH 09/27/16 09:54 4 mg ONETIME ONE Administration Ondansetron HCl 4 mg 09/27/16 11:04 09/27/16 11:12 Zofran IVPUSH 09/27/16 11:05 4 mg ONETIME ONE Administration - Radiology Interpretation Free Text/Narrative:: 40-year-old male who has been seen frequently in the ED over the last month. He presents usually impaired by alcohol or severely intoxicated complaining of severe left back and flank pain. It worked up in [address] the abdomen to rule out renal lithiasis. He has a 2 mm stone embedded in the left renal parenchyma lower pole. No obstructing stone suprapubic been identified. Lab work is never didn't identified any pancreatitis. His recurrent vomiting was always felt to be secondary to alcohol-induced gastritis. Lipase is so far him always been normal. Plan rigors lactate at open to rehydrate him. Given Toradol 30 mg IV Reglan 77.5 mg IV Benadryl 50 mg IV - Re-Assessments/Exams Free Text/Narrative Re-Assessment/Exam: 09/27/16 08:24 amylase came back elevated at 563. I will therefore give him Dilaudid 0.5 mg IV for further pain relief and Ativan 1 mg IV for his increased restlessness particularly noted in his lower extremities. Appears to be going through alcohol withdrawal this time 09/27/16 08:55 lab work reveals a white count of 10.3. There is a 82% neutrophil count suggesting left shift. Hemoglobin is 17.6 with hematocrit of 49.7 a mild to moderate hemoconcentration MCV is normal at 85.5. Platelets 211, 000. Sodium 136 potassium 40 chloride 97 bicarbonate 22. Anion gap is elevated at 21.0. Glucose is 122 alkaline phosphatase stays 143 amylase elevated at 568 lipase normal at 123. Blood alcohol today is 0.09 g percent. Patient is going to require 2-3 L of fluid to correct his acidosis. Serum ketones are not yet available. 09/27/16 09:54 patient is having more pain in his left upper quadrant of the abdomen at this time. Also feeling more nauseated again. Will give him Zofran 4 mg IV and Dilaudid 1 mg IV. He's going to need about 3 L of IV fluid in total to reverse his anion gap. Second liter will be D5 normal saline at open. Departure - Departure Time of Disposition: 12:50 Disposition: Home, Self-Care 01 Condition: Fair Clinical Impression: Metabolic acidosis Intractable nausea and vomiting Qualifiers: Vomiting type: unspecified Qualified Code(s): R11.2 - Nausea with vomiting, unspecified Gastritis Qualifiers: Gastritis type: alcoholic - Discharge Information Prescriptions: Metoclopramide HCl [Reglan] 10 mg PO Q6H #10 tablet Instructions: Gastritis, Adult, [id number], Nausea and Vomiting, Adult Referrals: PCP,Not In Area [Primary Care Provider] - Forms: ED Department Discharge Additional Instructions: Evaluation the emergency room today again for intractable nausea and vomiting. Blood alcohol is currently 0.9 you were significantly volume depleted with a metabolic acidosis from not eating the last several days and living out just alcohol. Her rehydrated with 3 L of IV fluids and received medications for nausea relief and pain relief. Suggest use of Prilosec 20 mg twice daily to protect her stomach lining from the effect of alcohol and allow the stomach lining to heal which takes about 7-10 days after you stop drinking. The chronic pain syndrome is secondary to back pain as investigations of the abdomen have not ever identified any pathology within the abdomen abdomen itself. Need to see a physician in the clinic to use try and arrange for chronic pain management. With your current alcohol use it is not advisable to be taking anti- inflammatories as it places you at high risk of an upper GI bleed. I have sent home a prescription for Reglan 10 mg that I want you take 1 every 6 hours for the next 2 days to prevent any further nausea or vomiting and allow you to start to eat solid food once again. Plenty of fluids today such as Gatorade or Powerade.
[2016-09-27] MEDS ORDERED: Ketorolac 30 MG/ML SDV IVPUSH ONE (07:44)
[2016-09-27] MEDS ORDERED: diphenhydrAMINE 50 MG/ML SDV IVPUSH ONE (07:44)
[2016-09-27] MEDS ORDERED: Famotidine 20 MG/2 ML SDV IVPUSH ONE (07:46)
[2016-09-27] MEDS ORDERED: LORazepam 2 MG/ML MDV IVPUSH ONE (08:13)
[2016-09-27] MEDS ORDERED: HYDROmorphone 0.5 MG/0.5 ML Syringe IVPUSH ONE (08:23)
[2016-09-27] MEDS ORDERED: Dextrose 5%-0.9% NaCl 1,000 ML IV SCH (09:45)
[2016-09-27] MEDS ORDERED: Ondansetron 4 MG/2 ML SDV IVPUSH ONE ×2 (09:53→11:04)
[2016-09-27] MEDS ORDERED: HYDROmorphone 1 MG/ML Syringe IVPUSH ONE ×2 (09:54→11:04)
[2016-09-27] MEDS ORDERED: Sodium Chloride 0.9% 1,000 ML IV ONE (11:04)
--- NOTE | 2016-09-27 15:10 | CR ---
Abdomen: Supine view of the abdomen was obtained. Electrostimulating device is identified terminating with the lower thoracic spine. Bowel gas pattern appears normal. No abnormal calcifications or soft tissue abnormality is seen. Bony structures are unremarkable. Impression: 1. Incidental finding. Nothing acute identified on supine abdominal x-ray. Diagnostic code #2
== END 2016-09-27 12:55 | disposition home or self-care (01) ==
LOC: JD.ED 07:25
DX: K29.20 Alcoholic gastritis without bleeding (principal); E87.2 Acidosis; F17.210 Nicotine dependence, cigarettes, uncomplicated; Z90.49 Acquired absence of other specified parts of digestive tract; Z96.0 Presence of urogenital implants; Z87.442 Personal history of urinary calculi; Z98.890 Other specified postprocedural states; Z88.0 Allergy status to penicillin; Z88.1 Allergy status to other antibiotic agents
CPT/HCPCS: 36415; 74000; 80053; 82009; 82150; 83690; 85025; 86140; 96361; 96374; 96375; 96376; 99284; G0480; J1170; J1200; J1885; J2060; J2405; J2765; J7040; J7042; J7120

== ENCOUNTER 2016-09-27 22:55 | Emergency (ER) | payer SELFPAY ==
[2016-09-27 23:12] VITALS: BP 125/85
[2016-09-27] MEDS ORDERED: Promethazine 25 MG/ML SDV IM ONE (23:35)
[2016-09-27] MEDS ORDERED: HYDROmorphone 1 MG/ML Syringe IM ONE (23:35)
--- NOTE | 2016-09-28 00:18 | EDM.PDOC ---
ED HPI GENERAL MEDICAL PROBLEM - General Chief Complaint: Abdominal Pain Stated Complaint: THROWING UP/LEFT SIDE PAIN Time Seen by Provider: 09/27/16 23:30 Source of Information: Reports: Patient History Limitations: Reports: No Limitations - History of Present Illness INITIAL COMMENTS - FREE TEXT/NARRATIVE: The patient presents with left flank pain, nausea and vomiting. This started a couple days ago and he was seen here earlier today. He had an elevated amylase but normal lipase. He was given fluids and something for pain. He did get better and went home and now the pain is back. It radiates to his abdomen now. This has been an ongoing problem for over a month now. He has not seen a doctor in the clinic yet. He says he has made an appointment for a couple weeks. He is intoxicated at times when he comes in and at times he is not cooperative. He has no fever, chills, cough, chest pain, or shortness of breath. He has no diarrhea or dysuria. Onset: Gradual Duration: Day(s): (2) Location: Reports: Back (left flank) Quality: Reports: Sharp Severity: Severe Improves with: Reports: None Worsens with: Reports: None Associated Symptoms: Reports: Nausea/Vomiting. Denies: Chest Pain, Cough, Fever /Chills, Headaches, Shortness of Breath Treatments BRAILLE TRANSCRIBER: Reports: Other (see below) Other Treatments BRAILLE TRANSCRIBER: reglan Left Abdomen Pain Score (Numeric/FACES): 8 - Related Data Allergies Allergy/AdvReac Type Severity Reaction Status Date / Time azithromycin [From Zithromax] Allergy Airway Verified 09/27/16 07:34 Tightness cephalexin [From Keflex] Allergy Airway Verified 09/27/16 07:34 Tightness Penicillins Allergy Anaphylactic Verified 09/27/16 07:34 Shock Home Meds: Home Meds Acetaminophen [Acetaminophen Extra Strength] 1,000 mg PO Q6H PRN 09/19/16 [ History] Ibuprofen 800 mg PO Q6H PRN 09/19/16 [History] Metoclopramide HCl [Reglan] 10 mg PO Q6H #10 tablet 09/27/16 [Rx] Ondansetron [Zofran ODT] 4 mg PO Q6H PRN #20 tab.dis 09/28/16 [Rx] Past Medical History - Past Health History Medical/Surgical History: Denies Medical/Surgical History Gastrointestinal History: Reports: Other (See Below) Other Gastrointestinal History: states "I had an ulcer one time." Genitourinary History: Reports: Renal Calculus Musculoskeletal History: Reports: Back Pain, Chronic Other Musculoskeletal History: pain to right foot Psychiatric History: Reports: Addiction Other Psychiatric History: alcohol - Infectious Disease History Infectious Disease History: Reports: Chicken Pox - Past Surgical History GI Surgical History: Reports: Appendectomy Male Surgical History: Reports: Ureteral Stent Neurological Surgical History: Reports: Lumbar Spine Social & Family History - Family History Family Medical History: Noncontributory - Tobacco Use Smoking Status *Q: Current Every Day Smoker Years of Tobacco use: 25 Packs/Tins Daily: 1.5 - Caffeine Use Caffeine Use: Reports: Coffee Other Caffeine Use: unknown - Alcohol Use Days Per Week of Alcohol Use: 7 Number of Drinks Per Day: 3 Total Drinks Per Week: 21 - Recreational Drug Use Recreational Drug Use: No Other Recreational Drug Type: patient denies drug use - Living Situation & Occupation Living situation: Reports: , with Significant Other (Fiance), with Family (3 kids) Occupation: Employed ([place] [employer]) ED ROS GENERAL - Review of Systems Review Of Systems: See Below Constitutional: Reports: No Symptoms HEENT: Reports: No Symptoms Respiratory: Reports: No Symptoms Cardiovascular: Reports: No Symptoms Endocrine: Reports: No Symptoms GI/Abdominal: Reports: Abdominal Pain, Nausea, Vomiting : Reports: Flank Pain (Left) Musculoskeletal: Reports: No Symptoms ED EXAM, RENAL/ - Physical Exam Exam: See Below Exam Limited By: No Limitations General Appearance: Alert, Mild Distress (He is standing leaning over the counter and pacing in the room) Ears: Normal External Exam Nose: Normal Inspection Head: Atraumatic, Normocephalic Neck: Normal Inspection Respiratory/Chest: No Respiratory Distress, Lungs Clear, Normal Breath Sounds Cardiovascular: Regular Rate, Rhythm, No Edema, No Murmur GI/Abdominal: Soft, No Organomegaly, No Mass, Tender (Mild tenderness to the LUQ ) Back Exam: CVA Tenderness (L) Course - Vital Signs Last Recorded V/S: Last Vital Signs Temp 98.2 F 09/27/16 23:10 Pulse 85 09/27/16 23:10 Resp 20 09/27/16 23:10 BP 125/85 09/27/16 23:10 Pulse Ox 95 09/27/16 23:10 - Orders/Labs/Meds Labs: Laboratory Tests 09/27/16 09/27/16 09/27/16 Range/Units 23:50 23:50 23:50 WBC 8.06 (4.23-9.07) K/mm3 RBC 4.70 (4.63-6.08) M/mm3 Hgb 14.4 (13.7-17.5) gm/L Hct 41.0 (40.1-51.0) % MCV 87.2 (79.0-92.2) fl MCH 30.6 (25.7-32.2) pg MCHC 35.1 (32.2-35.5) g/dl RDW Std Deviation 47.6 H (35.1-43.9) fL Plt Count 165 (163-337) K/mm3 MPV 8.2 L (9.4-12.3) fl Neut % (Auto) 68.3 H (34.0-67.9) % Lymph % (Auto) 20.3 L (21.8-53.1) % [place] % (Auto) 10.5 (5.3-12.2) % Eos % (Auto) 0.7 L (0.8-7.0) Baso % (Auto) 0.1 (0.1-1.2) % Neut # (Auto) 5.49 H (1.78-5.38) K/mm3 Lymph # (Auto) 1.64 (1.32-3.57) K/mm3 [place] # (Auto) 0.85 H (0.30-0.82) K/mm3 Eos # (Auto) 0.06 (0.04-0.54) K/mm3 Baso # (Auto) 0.01 (0.01-0.08) K/mm3 Sodium 143 (136-145) mEq/L Potassium 3.4 L (3.5-5.1) mEq/L Chloride 106 (98-107) mEq/L Carbon Dioxide 25 (21-32) mEq/L Anion Gap 15.4 H (5-15) BUN 11 (7-18) mg/dL Creatinine 0.8 (0.7-1.3) mg/dL Est Cr Clr Drug Dosing TNP Estimated GFR (MDRD) > 60 (>60) mL/min BUN/Creatinine Ratio 13.8 L (14-18) Glucose 97 (74-106) mg/dL Calcium 8.1 L (8.5-10.1) mg/dL Total Bilirubin 0.7 (0.2-1.0) mg/dL AST 27 (15-37) U/L ALT 33 (16-63) U/L Alkaline Phosphatase 110 (46-116) U/L Total Protein 6.0 L (6.4-8.2) g/dl Albumin 3.4 (3.4-5.0) g/dl Globulin 2.6 gm/dL Albumin/Globulin Ratio 1.3 (1-2) Amylase 207 H (25-115) U/L Lipase 177 (73-393) U/L Ethyl Alcohol 0.11 (0.00) gm% Meds: Medications Discontinued Medications Generic Name Dose Route Start Last Admin Trade Name Freq PRN Reason Stop Dose Admin Hydromorphone HCl 1 mg 09/27/16 23:35 09/27/16 23:48 Dilaudid IM 09/27/16 23:36 1 mg ONETIME ONE Administration Ondansetron HCl 4 mg 09/28/16 00:30 09/28/16 00:41 Zofran Odt PO 09/28/16 00:31 4 mg ONETIME ONE Administration Promethazine HCl 25 mg 09/27/16 23:35 09/27/16 23:48 Phenergan IM 09/27/16 23:36 25 mg ONETIME ONE Administration - Re-Assessments/Exams Free Text/Narrative Re-Assessment/Exam: 09/28/16 00:23 I ordered dilaudid 1mg IM, phenergan 25mg IM and labs. 09/28/16 00:51 His WBC is back down to normal. His amylase is coming down to 207. His lipase was negative. I will give him a dose of zofran here and a prescription for more. His blood alcohol was elevated at 0.11. I will have him follow up with Dr Perez or one of his partners. Departure - Departure Time of Disposition: 00:55 Disposition: Home, Self-Care 01 Condition: Good Clinical Impression: Left flank pain Nausea and vomiting Qualifiers: Vomiting type: unspecified Vomiting Intractability: non-intractable Qualified Code(s): R11.2 - Nausea with vomiting, unspecified - Discharge Information Prescriptions: Ondansetron [Zofran ODT] 4 mg PO Q6H PRN #20 tab.dis PRN Reason: Nausea/Vomiting Referrals: PCP,None [Primary Care Provider] - Sheri Rodriguez [Physician] - 1 Week Forms: ED Department Discharge Additional Instructions: Take the zofran every 6 hours as needed for nausea and vomiting Stop taking the reglan. Follow up with Dr Perez.
[2016-09-28] MEDS ORDERED: Ondansetron 4 MG Tab.DIS PO ONE (00:30)
== END 2016-09-28 01:00 | disposition home or self-care (01) ==
LOC: JD.ED 22:55
DX: R10.9 Unspecified abdominal pain (principal); R11.2 Nausea with vomiting, unspecified; F17.210 Nicotine dependence, cigarettes, uncomplicated; Z88.1 Allergy status to other antibiotic agents; Z88.0 Allergy status to penicillin; Z90.49 Acquired absence of other specified parts of digestive tract
CPT/HCPCS: 36415; 80053; 82150; 83690; 85025; 96372; 99284; A9270; G0480; J1170; J2550; 99283

== ENCOUNTER 2016-09-28 15:44 | Emergency (ER) | payer SELFPAY ==
[2016-09-28 16:00] VITALS: BP 152/99
[2016-09-28] MEDS ORDERED: Ketorolac 60 MG/2 ML SDV IM ONE (16:29)
[2016-09-28] MEDS ORDERED: Metoclopramide 10 MG/2 ML SDV IM ONE (16:29)
--- NOTE | 2016-09-28 16:49 | EDM.PDOC ---
ED HPI GENERAL MEDICAL PROBLEM - General Chief Complaint: Abdominal Pain Stated Complaint: Abdominal pain Time Seen by Provider: 09/28/16 16:20 Source of Information: Reports: Patient, Old Records, RN Notes Reviewed History Limitations: Reports: No Limitations - History of Present Illness INITIAL COMMENTS - FREE TEXT/NARRATIVE: 40 year old male presents to the ED with complaints of LLQ and left flank pain with associated nausea and vomiting. The pain is constant. He has taken Ibuprofen with no relief. He also has Reglan and Zofran at home. He reports that these medications are not helping. He denies alcohol use today. No fever or chills. This is [facility]'s 17th visit since the beginning of August for this same complaint and/or ETOH intoxication. He has had several workups including two CT scans with no acute findings. He was in the ER twice yesterday for this same complaint. He had labs drawn and was treated accordingly then discharged. He had a mildly elevated amylase yesterday morning but this had returned to normal with his repeat labs last evening. His workup was otherwise normal. Left Flank Pain Score (Numeric/FACES): 10 - Related Data Allergies Allergy/AdvReac Type Severity Reaction Status Date / Time azithromycin [From Zithromax] Allergy Airway Verified 09/27/16 07:34 Tightness cephalexin [From Keflex] Allergy Airway Verified 09/27/16 07:34 Tightness Penicillins Allergy Anaphylactic Verified 09/28/16 16:00 Shock Home Meds: Home Meds Acetaminophen [Acetaminophen Extra Strength] 1,000 mg PO Q6H PRN 09/19/16 [ History] Ibuprofen 800 mg PO Q6H PRN 09/19/16 [History] Metoclopramide HCl [Reglan] 10 mg PO Q6H #10 tablet 09/27/16 [Rx] Ondansetron [Zofran ODT] 4 mg PO Q6H PRN #20 tab.dis 09/28/16 [Rx] Past Medical History - Past Health History Medical/Surgical History: Denies Medical/Surgical History Gastrointestinal History: Reports: Other (See Below) Other Gastrointestinal History: states "I had an ulcer one time." Genitourinary History: Reports: Renal Calculus Musculoskeletal History: Reports: Back Pain, Chronic Other Musculoskeletal History: pain to right foot Psychiatric History: Reports: Addiction Other Psychiatric History: alcohol - Infectious Disease History Infectious Disease History: Reports: Chicken Pox - Past Surgical History GI Surgical History: Reports: Appendectomy Male Surgical History: Reports: Ureteral Stent Neurological Surgical History: Reports: Lumbar Spine Social & Family History - Family History Family Medical History: Noncontributory - Tobacco Use Smoking Status *Q: Current Every Day Smoker Years of Tobacco use: 20 Packs/Tins Daily: 1.5 - Caffeine Use Caffeine Use: Reports: Coffee Other Caffeine Use: unknown - Alcohol Use Days Per Week of Alcohol Use: 7 Number of Drinks Per Day: 3 Total Drinks Per Week: 21 - Recreational Drug Use Recreational Drug Use: No Other Recreational Drug Type: patient denies drug use - Living Situation & Occupation Living situation: Reports: , with Significant Other (Fiance), with Family (3 kids) 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 Denies: Fever, Chills, Diaphoresis Respiratory: Reports: No Symptoms. Denies: Shortness of Breath Cardiovascular: Reports: No Symptoms. Denies: Chest Pain GI/Abdominal: Reports: Abdominal Pain, Nausea, Vomiting : Reports: Flank Pain. Denies: Frequency, Urgency ED EXAM, GI/ABD - Physical Exam Exam: See Below Exam Limited By: No Limitations General Appearance: Alert, WD/WN, Mild Distress Respiratory/Chest: No Respiratory Distress, Lungs Clear, Normal Breath Sounds Cardiovascular: Regular Rate, Rhythm, No Murmur GI/Abdominal Exam: Normal Bowel Sounds, Soft, Non-Tender, No Organomegaly, No Distention, No Mass Back Exam: Normal Inspection, Full Range of Motion. No: CVA Tenderness (L), CVA Tenderness (R) Neurological: Alert, Oriented, Normal Cognition, Normal Gait, Other (does not appear intoxicated, ambulates with a steady gait, no tremors ) Course - Vital Signs Last Recorded V/S: Last Vital Signs Temp 98.5 F 09/28/16 15:56 Pulse 89 09/28/16 15:56 Resp 18 09/28/16 15:59 BP 152/99 H 09/28/16 15:59 Pulse Ox 98 09/28/16 15:59 - Orders/Labs/Meds Meds: Medications Discontinued Medications Generic Name Dose Route Start Last Admin Trade Name Freq PRN Reason Stop Dose Admin Ketorolac Tromethamine 60 mg 09/28/16 16:29 09/28/16 16:39 Toradol IM 09/28/16 16:30 60 mg ONETIME ONE Administration Metoclopramide HCl 5 mg 09/28/16 16:29 09/28/16 16:39 Reglan IM 09/28/16 16:30 5 mg ONETIME ONE Administration - Re-Assessments/Exams Free Text/Narrative Re-Assessment/Exam: Exam today is unremarkable. Discussed with Dr. Bhakta who agrees that the patient seems to be malingering. No labs will be ordered today per Dr. Watson recommendation. He will be treated symptomatically with Toradol and Reglan. He has an appointment to see someone in the clinic. I encouraged him to try and get in sooner as this a chronic recurrent problem. He was educated to f/u with [facility] if he would like help with alcohol abuse. Departure - Departure Time of Disposition: 16:47 Disposition: Home, Self-Care 01 Condition: Good Clinical Impression: Recurrent abdominal pain Nausea and vomiting Qualifiers: Vomiting type: unspecified Vomiting Intractability: non-intractable Qualified Code(s): R11.2 - Nausea with vomiting, unspecified - Discharge Information Referrals: PCP,None [Primary Care Provider] - Forms: ED Department Discharge Additional Instructions: Follow-up in the clinic as soon as possible regarding your chronic abdominal pain. We have same and next day appointments available. Call [phone] to schedule Continue the Zofran and Reglan that you have at home for nausea and vomiting Tylenol 650mg every 4-6 hours for pain alternating with Ibuprofen 600mg every 6- 8 hours as needed for pain Follow-up at [facility] if you would like to seek help for alcohol use. Their number is [phone]
== END 2016-09-28 16:55 | disposition home or self-care (01) ==
LOC: JD.ED 15:44
DX: R10.32 Left lower quadrant pain (principal); R11.2 Nausea with vomiting, unspecified; F17.210 Nicotine dependence, cigarettes, uncomplicated; Z88.1 Allergy status to other antibiotic agents; Z88.0 Allergy status to penicillin; Z90.49 Acquired absence of other specified parts of digestive tract
CPT/HCPCS: 96372; 99284; J1885; J2765; 99283

== ENCOUNTER 2016-09-29 07:06 | Emergency (ER) | payer SELFPAY ==
[2016-09-29 07:17] VITALS: BP 137/95
--- NOTE | 2016-09-29 07:23 | EDM.PDOC ---
ED HPI GENERAL MEDICAL PROBLEM - General Chief Complaint: Genitourinary Problem Stated Complaint: LEFT SIDE PAIN VOMITING Time Seen by Provider: 09/29/16 07:21 - History of Present Illness INITIAL COMMENTS - FREE TEXT/NARRATIVE: 40-year-old male presents emergency room with abdominal pain. Patient has had continuing pain in his abdomen he's been seen here now 14 times this month for the same complaint. He has problems with alcoholism. He's been using quite a bit of ibuprofen to 800 mg tablets 3 times a day. At this point is complaining of epigastric discomfort persistent nausea no vomiting and left lower quadrant pain. He's had 2 CTs that have been unrevealing lab work is been unrevealing except for elevated amylase lipase is been normal blood alcohol is been elevated. The patient is a smoker. The patient has a history of having a ruptured appendix and hernia repair for an umbilical hernia done at the same time in 2014 down in [place]. Patient denies fevers or chills no problems with voiding no constipation or diarrhea. He's had some nausea no vomiting he cannot bring anything up. 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 WORKER: Reports: Other (see below) Other 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 WORKER: reglan and zofran Left Abdomen Pain Score (Numeric/FACES): 7 - Related Data Allergies Allergy/AdvReac Type Severity Reaction Status Date / Time azithromycin [From Zithromax] Allergy Airway Verified 09/29/16 07:13 Tightness cephalexin [From Keflex] Allergy Airway Verified 09/29/16 07:13 Tightness Penicillins Allergy Anaphylactic Verified 09/29/16 07:13 Shock Home Meds: Home Meds Acetaminophen [Acetaminophen Extra Strength] 1,000 mg PO Q6H PRN 09/19/16 [ History] Ibuprofen 800 mg PO Q6H PRN 09/19/16 [History] Metoclopramide HCl [Reglan] 10 mg PO Q6H #10 tablet 09/27/16 [Rx] Ondansetron [Zofran ODT] 4 mg PO Q6H PRN #20 tab.dis 09/28/16 [Rx] Acetaminophen/HYDROcodone [Preston 325-5 MG] 1 - 2 tab PO Q6H PRN #15 tablet 09/29 [Rx] Pantoprazole Sodium [Protonix] 40 mg PO Q24H #30 tablet. 09/29/16 [Rx] Sucralfate [Carafate] 1 gm PO QIDACANDBED #28 tablet 09/29/16 [Rx] Past Medical History - Past Health History Medical/Surgical History: Denies Medical/Surgical History Gastrointestinal History: Reports: Other (See Below) Other Gastrointestinal History: states "I had an ulcer one time." Genitourinary History: Reports: Renal Calculus Musculoskeletal History: Reports: Back Pain, Chronic Other Musculoskeletal History: pain to right foot Psychiatric History: Reports: Addiction Other Psychiatric History: alcohol - Infectious Disease History Infectious Disease History: Reports: Chicken Pox - Past Surgical History GI Surgical History: Reports: Appendectomy Male Surgical History: Reports: Ureteral Stent Neurological Surgical History: Reports: Lumbar Spine Social & Family History - Family History Family Medical History: Noncontributory - Tobacco Use Smoking Status *Q: Current Every Day Smoker Years of Tobacco use: 20 Packs/Tins Daily: 1.5 - Caffeine Use Caffeine Use: Reports: Coffee Other Caffeine Use: unknown - Alcohol Use Days Per Week of Alcohol Use: 7 Number of Drinks Per Day: 3 Total Drinks Per Week: 21 - Recreational Drug Use Recreational Drug Use: No Other Recreational Drug Type: patient denies drug use - Living Situation & Occupation Living situation: Reports: , with Significant Other (Fiance), with Family (3 kids) Occupation: Employed ([employer]) ED ROS GENERAL - Review of Systems Review Of Systems: See Below Constitutional: Reports: No Symptoms Respiratory: Reports: No Symptoms Cardiovascular: Reports: No Symptoms GI/Abdominal: Reports: Abdominal Pain, Nausea. Denies: Black Stool, Bloody Stool, Constipation, Diarrhea, Hematemesis, Hematochezia : Reports: No Symptoms ED EXAM, GI/ABD - Physical Exam Exam: See Below Exam Limited By: Other (Suspected alcohol on board he states he had 2 drinks last night) General Appearance: Alert, No Apparent Distress Head: Atraumatic, Normocephalic Neck: Normal Inspection, Supple, Non-Tender, Full Range of Motion. No: Lymphadenopathy (L), Lymphadenopathy (R) Respiratory/Chest: No Respiratory Distress, Lungs Clear, Normal Breath Sounds Cardiovascular: Regular Rate, Rhythm, No Edema, No Murmur GI/Abdominal Exam: Normal Bowel Sounds, Soft, Other (He has significant epigastric discomfort with palpation also in the left upper quadrant. He has mild discomfort in the left lower quadrant the pain in the epigastric area is worse than the area in the left lower quadrant. No other palpable discomfort or masses noted no rebound guarding or rigidity noted) (Male) Exam: No Hernia, Normal Inspection. No: Inguinal Lymphadenopathy Back Exam: Normal Inspection. No: CVA Tenderness (L), CVA Tenderness (R) Neurological: Alert, Oriented Course - Vital Signs Last Recorded V/S: Last Vital Signs Temp 36.9 C 09/29/16 07:14 Pulse 82 09/29/16 07:14 Resp BP 137/95 H 09/29/16 07:14 Pulse Ox 97 09/29/16 07:14 - Orders/Labs/Meds Meds: Medications Discontinued Medications Generic Name Dose Route Start Last Admin Trade Name Vignesh PRN Reason Stop Dose Admin Al Hydroxide/Mg Hydroxide 30 0 ml 09/29/16 07:33 09/29/16 07:47 ml/ Lidocaine HCl 15 ml PO 09/29/16 07:34 45 ml ONETIME ONE Administration Ondansetron HCl 4 mg 09/29/16 07:33 09/29/16 07:38 Zofran Odt PO 09/29/16 07:34 4 mg ONETIME ONE Administration Sucralfate 1 gm 09/29/16 08:09 Carafate PO 09/29/16 08:10 ONETIME ONE - Re-Assessments/Exams Free Text/Narrative Re-Assessment/Exam: 09/29/16 08:15 Patient was given a GI cocktail this helped with his epigastric and left upper quadrant discomfort he still has his left lower quadrant discomfort. He also states he is still nauseated. He has not vomited at all here in the emergency room. We will give him some Carafate and see if this helps a little bit. Anticipate discharge with PPI therapy stopping ibuprofen and following up in the clinic on Sunday as scheduled he will be given Preston No. 15 one or 2 every 6 hours as needed for pain. He'll be started on Protonix 40 mg daily 30-60 minutes before his morning meal. If he has benefit from the Carafate will start him on a short course of this as well. Departure - Departure Time of Disposition: 08:21 Disposition: Home, Self-Care 01 Clinical Impression: Abdominal pain, Dyspepsia - Discharge Information Prescriptions: Acetaminophen/HYDROcodone [Preston 325-5 MG] 1 - 2 tab PO Q6H PRN #15 tablet PRN Reason: Abdominal Pain Pantoprazole Sodium [Protonix] 40 mg PO Q24H #30 tablet. Sucralfate [Carafate] 1 gm PO QIDACANDBED #28 tablet Referrals: PCP,None [Primary Care Provider] - Forms: ED Department Discharge Additional Instructions: Return to the emergency room with any questions or problems. Stop the ibuprofen. Your upper abdominal pain I believe is due to heartburn aggravated by alcohol use smoking and heavy ibuprofen use. Stop the ibuprofen. The cause of your left lower abdominal pain is uncertain you've had multiple lab studies that are unrevealing for this. You've had 2 CAT scans that do not show any pathology at this point. I cannot exclude a hernia but your exam does not suggest 1 at this point. You had a small hernia noted on Sunday or CAT scans just above your umbilicus, or bellybutton. I do not believe this is related your pain at all. Use your Zofran as needed for nausea. Stop the ibuprofen, decrease alcohol use and smoking if possible. You been started on Protonix 40 mg take this 30-60 minutes before your morning meal. You have also been started on a short course of Carafate take this 4 times daily just before meals and at bedtime he can take this on an empty stomach if you do not feel like eating. You been given Preston No. 15 one or 2 every 6 hours as needed for pain. Allow 12 hours after using this medication before driving or returning to work. Continue your Zofran and if this does not work Reglan as needed for nausea. Follow-up in the clinic on Sunday as scheduled.
[2016-09-29] MEDS ORDERED: Alum Hydrox/Mag Hydrox/Simeth 30 ML, Lidocaine 2% 15 ML PO ONE ×2 (07:33)
[2016-09-29] MEDS ORDERED: Ondansetron 4 MG Tab.DIS PO ONE (07:33)
[2016-09-29] MEDS ORDERED: Sucralfate Suspension 1 GM/10 ML Cup PO ONE (08:09)
== END 2016-09-29 08:49 | disposition home or self-care (01) ==
LOC: JD.ED 07:06
DX: R10.13 Epigastric pain (principal); F17.210 Nicotine dependence, cigarettes, uncomplicated; Z87.442 Personal history of urinary calculi; Z96.0 Presence of urogenital implants; Z88.0 Allergy status to penicillin; Z88.1 Allergy status to other antibiotic agents
CPT/HCPCS: 99284; A9270; 99283

== ENCOUNTER 2017-02-26 07:28 | Emergency (ER) | payer SELFPAY ==
[2017-02-26 07:47] VITALS: BP 139/91
--- NOTE | 2017-02-26 08:04 | EDM.PDOC ---
ED HPI GENERAL MEDICAL PROBLEM - General Chief Complaint: Respiratory Problem Stated Complaint: HEAD CONGESTION Time Seen by Provider: 02/26/17 07:44 Source of Information: Reports: Patient, RN Notes Reviewed - History of Present Illness INITIAL COMMENTS - FREE TEXT/NARRATIVE: 41-year-old male comes in with severe nasal and sinus congestion the first started about 2 and half weeks ago. He states he was treated with a course of antibiotics and symptoms were getting better. Then about 3-4 days ago he became more ill with worsening cough congestion, possible low-grade fever, chills. He has had frontal headache, facial and sinus pressure with a lot of posterior nasal drainage, what he is coughing and spitting out is colored. He has had difficulty sleeping at night because of the headache and facial pressure. Mild scratchy throat. No difficulty swallowing or breathing. Generalized Pain Score (Numeric/FACES): 7 - Related Data Allergies Allergy/AdvReac Type Severity Reaction Status Date / Time azithromycin [From Zithromax] Allergy Airway Verified 02/26/17 07:47 Tightness cephalexin [From Keflex] Allergy Airway Verified 02/26/17 07:47 Tightness Penicillins Allergy Anaphylactic Verified 02/26/17 07:47 Shock Home Meds: Home Meds Pantoprazole Sodium [Protonix] 40 mg PO Q24H #30 tablet. 09/29/16 [Rx] Doxycycline [Vibramycin] 100 mg PO DAILY #20 tab 02/26/17 [Rx] Hydrocodone/Acetaminophen [Irwin 5-325] 1 tab PO Q6HR PRN #7 tablet 02/26/17 [Rx ] Past Medical History - Past Health History Medical/Surgical History: Denies Medical/Surgical History Gastrointestinal History: Reports: Other (See Below) Other Gastrointestinal History: states "I had an ulcer one time." Genitourinary History: Reports: Renal Calculus Musculoskeletal History: Reports: Back Pain, Chronic Other Musculoskeletal History: pain to right foot Psychiatric History: Reports: Addiction Other Psychiatric History: alcohol - Infectious Disease History Infectious Disease History: Reports: Chicken Pox - Past Surgical History GI Surgical History: Reports: Appendectomy Male Surgical History: Reports: Ureteral Stent Neurological Surgical History: Reports: Lumbar Spine Social & Family History - Family History Family Medical History: Noncontributory - Tobacco Use Smoking Status *Q: Current Every Day Smoker Years of Tobacco use: 20 Packs/Tins Daily: 1 - Caffeine Use Caffeine Use: Reports: Coffee Other Caffeine Use: unknown - Alcohol Use Days Per Week of Alcohol Use: 7 Number of Drinks Per Day: 3 Total Drinks Per Week: 21 - Recreational Drug Use Recreational Drug Use: No Other Recreational Drug Type: patient denies drug use - Living Situation & Occupation Living situation: Reports: , with Significant Other (Fiance), with Family (3 kids) 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 Denies: Wheezing Cardiovascular: Reports: Chest Pain GI/Abdominal: Denies: Abdominal Pain (With coughing), Nausea, Vomiting Musculoskeletal: Reports: Other (General achiness) Skin: Reports: No Symptoms Neurological: Reports: Headache ED EXAM, GENERAL - Physical Exam Exam: See Below General Appearance: Alert, Mild Distress Eye Exam: Bilateral Eye: PERRL Ears: Normal External Exam Throat/Mouth: Normal Inspection, Normal Oropharynx Head: Sinus Tenderness Neck: Supple, Full Range of Motion. No: Lymphadenopathy (L), Lymphadenopathy (R ) Respiratory/Chest: No Respiratory Distress, Lungs Clear, Normal Breath Sounds. No: Rhonchi, Wheezing Cardiovascular: Regular Rate, Rhythm Extremities: Normal Inspection, Normal Range of Motion Neurological: Alert, Oriented, No Motor/Sensory Deficits Skin Exam: Warm, Dry, Normal Color Course - Vital Signs Last Recorded V/S: Last Vital Signs Temp 97.7 F 02/26/17 07:43 Pulse 87 02/26/17 07:43 Resp 18 02/26/17 07:43 BP 139/91 H 02/26/17 07:43 Pulse Ox 100 02/26/17 07:43 Departure - Departure Time of Disposition: 07:59 Disposition: Home, Self-Care 01 Condition: Fair Clinical Impression: Upper respiratory infection Qualifiers: URI type: unspecified viral URI Qualified Code(s): J06.9 - Acute upper respiratory infection, unspecified Sinusitis Qualifiers: Sinusitis location: maxillary Chronicity: acute - Discharge Information Prescriptions: Hydrocodone/Acetaminophen [Irwin 5-325] 1 tab PO Q6HR PRN #7 tablet PRN Reason: Pain Doxycycline [Vibramycin] 100 mg PO DAILY #20 tab Instructions: Sinusitis, Adult, [id number], Upper Respiratory Infection, Adult, [id number] Referrals: PCP,Not In Area [Primary Care Provider] - Forms: ED Department Discharge Additional Instructions: Vaporizer or steam as needed, doxycycline 100 mg twice daily for sinus infection and bronchitis, Tylenol 2-3 times daily for mild to moderate discomfort or hydrocodone if needed for severe pain. The hydrocodone primarily at bedtime to help you sleep, do not take Tylenol and hydrocodone at the same time, do not drive or work when taking hydrocodone, follow-up clinic if not much better within 5-10 days as expected
== END 2017-02-26 08:22 | disposition home or self-care (01) ==
LOC: JD.ED 07:28
DX: J01.00 Acute maxillary sinusitis, unspecified (principal); J06.9 Acute upper respiratory infection, unspecified; F17.210 Nicotine dependence, cigarettes, uncomplicated; Z88.0 Allergy status to penicillin; Z88.1 Allergy status to other antibiotic agents; Z79.899 Other long term (current) drug therapy
CPT/HCPCS: 99283